=== PATIENT | female | born 1995 | race Caucasian/White ===

== ENCOUNTER 2025-05-01 13:44 | Observation (INO) | payer MEDICAID, SELFPAY ==
[2025-05-01] VITALS (9 sets, daily range): BP systolic 97–144; BP diastolic 46–94; PULSE 71–90; RESP 16–17; TEMP 36.6–36.9; O2SAT 95–100; BMI 30.7; BMI 35.7
--- OUTSIDE RECORDS SUMMARY | 2025-05-01 13:56 | XMS_ITS | Encounter Summary ---
Author Organization [facility] Address [address] [place] [place] [address] Care Team Providers Care Maintenance Parts Technician Name Role Phone Unavailable Primary Care Provider Unavailabl e Encounter Details Date Type Department Care Team (Latest Contact Info) Description 06/10/2005 Outpatient Historical [facility] Medicine- [address] [phone] Nate Bourne DO NO ADDRESS ON FILE INSECT BITE HIP/LEG-INFEC (Primary Dx) Social History Tobacco Use Types Packs/Day Years Used Date Smoking Tobacco: Never Assessed Comments Unknown Sex and Gender Information Value Date Recorded Sex Assigned at Not on file 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
--- OUTSIDE RECORDS SUMMARY | 2025-05-01 13:56 | XMS_ITS | Encounter Summary ---
Author Organization [employer] Address [address] [facility] [place] [address] Care Team Providers Care Sql Server Bi Developer Name Role Phone Unavailable Primary Care Provider Unavailabl e Encounter Details Date Type Department Care Team (Late st Contact Info) Description 04/29/2025 External Device Data [facility] ABSTRACTION Provider, Abstract NO ADDRESS ON FILE Social History Tobacco Use Types Packs/Day Years Used Date Smoking Tobacco: Some Days Cigarettes Smokeless Tobacco: Never Alcohol Use Standard Drinks/Week Comments Yes 0 (1 standard drink = 0.6 oz pur e alcohol) Feeling Safe Answer Date Recorded Are you in a relationship wi th someone who hurts you emotionally and/or physically? No 05/07/2024 Comments No Sex and Gender Information Value Date Recorded Sex Assigned at Female 02/13/2025 11:41 AM CDT Legal Sex Female 6:27 AM APPLICATIONS SUPPORT ENGINEER Gender Identity Female 02/13/2025 11:41 AM CDT Sexual Orientation Choose not to disclose 2024 11:41 AM CDT documented as of this encounter Plan of Treatment Not on file documented as of this encounter Visit Diagnoses Not on filedocumented in this encounter
--- OUTSIDE RECORDS SUMMARY | 2025-05-01 13:56 | XMS_ITS | Encounter Summary ---
Author Organization [facility] Address [address] [place] [address] Care Team Providers Care Account Solutions Analyst Name Role Phone Unavailable Primary Care Provider Unavailabl e Encounter Details Date Type Department Care Team (Latest Contact Info) Description 08/31/2005 Outpatient Historical [facility] Medicine- [address] [phone] Nate Bourne DO NO ADDRESS ON FILE URIN TRACT INFECTION NOS (Primary Dx) Social History Tobacco Use Types Packs/Day Years Used Date Smoking Tobacco: Never Assessed Comments Unknown Sex and Gender Information Value Date Recorded Sex Assigned at Not on file 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
--- OUTSIDE RECORDS SUMMARY | 2025-05-01 13:56 | XMS_ITS | Clinical Summary ---
Author Organization [facility] Address [address] [place] [address] Phone Care Team Providers Care Machine Ceramic Coater Name Role Phone Unavailable Primary Care Provider Unavailabl e Allergies Active Allergy Reactions Criticality Noted Date Comments Penicillins Itching High 04/14/2018 Medications ondansetron (ZOFRAN ODT) 4 mg Tablet, Rapid Dissolve Take 1 Tablet (4 mg) by mouth every 8 hours as needed for Nausea/Emesis . Dissolve tablet on top of tongue, then swallow with saliva. 30 Tablet 05/04/2024 Active buPROPion (WELLBUTRIN) 100 mg tablet Take 300 mg by mouth daily. 04/28/2024 Active naproxen (NAPROSYN) 500 mg tablet Take 500 mg by mouth 2 times daily as needed for Pain. 01/21/2025 Active ondansetron (ZOFRAN) 4 mg Tablet Take 4 mg by mouth every 6 hours as needed. 04/28/2024 Active SUMAtriptan (IMITREX) 50 mg tablet Take 50 mg by mouth every 2 hours as needed. 12/25/2024 Active traZODone (DESYREL) 100 mg tablet Take 100 mg by mouth daily at bedtime. 04/28/2024 Active topiramate (TOPAMAX) 50 mg tablet Take 50 mg by mouth 2 times daily. Active propranoloL (INDERAL) 80 mg tablet Take 80 mg by mouth daily. Active Active Problems Problem Noted Date Diagnosed Date Dental caries 04/16/2018 Tobacco use 11/05/2015 Dysthymic disorder Resolved Problems Problem Noted Date Diagnosed Date Resolved Date Suicidal overdose, initial encounter 11/29/2019 12/19/2019 Polyhydramnios affecting pre gnancy in third trimester 06/04/2018 07/18/2018 Antepartum anemia 03/15/2018 12/19/2019 Antepartum placenta circumvallata 01/17/2018 07/18/2018 Chlamydia infection 10/24/2017 12/19/19 Supervision of normal first , antepartum 10/19/2017 07/18/2018 Calculus of gallbladder 08/13/201705/2020 Encounters Date Type Department Care Team Description 04/29/2025 External Device Data [facility] ABSTRACTION Provider, Abstract 04/22/2025 External Device Data [facility] ABSTRACTION Provider, Abstract 04/22/2025 External Device Data [facility] ABSTRACTION Provider, Abstract 04/22/2025 External Device Data [facility] ABSTRACTION Provider, Abstract 03/04/2025 External Device Data [facility] ABSTRACTION Provider, Abstract 02/25/2025 External Device Data [facility] ABSTRACTION Provider, Abstract 02/11/2025 External Device Data [facility] ABSTRACTION Provider, Abstract 01/30/2025 External Device Data [facility] ABSTRACTION Provider, Abstract 01/29/2025 External Device Data [facility] ABSTRACTION Provider, Abstract from Last 3 Months Immunizations Immunization Administration Dates Next Due (M-M-R II/PRIORIX)(12 MO UP) MEASLES, MUMPS AND RUBELLA VIRUS VACCINE, 0.5 ML IM/SUBCUT 07/31/2001,12/04/1997 (PNEUMOVAX 23)(50 YRS UP) PN EUMOCOCCAL POLYSACCHARIDE (PPV23) 0.5 ML, IM 08/15/2017 Dt Dtp Dtap Vaccine 07/31/2001, 8,06/12/1997,04/03,01/28/1997 HIB, Unspecified Formulation 12/04/1997, 06/12/1997,04/03/1997,01/28 Hepatitis B Vaccine 06/12/1997,01/28/1997,1996 INFLUENZA VACCINE QUADRIVALE NT 3 YR UP PF IM 08/15/2017 IPV/OPV 07/31/2001, 8,04/03/1997,01/28 Family History Medical History Relation Name Comments Healthy Brother 1 Healthy Brother 2 Other Brother 2 asthma Healthy Father Healthy Maternal Grandfather Breast Cancer Maternal Grandmother Healthy Maternal Grandmother Healthy Mother Healthy Paternal Grandfather Healthy Paternal Grandmother Healthy Sister 1 Healthy Sister 2 Healthy Sister 3 Colon Cancer Neg Hx Ovarian Cancer Neg Hx Relation Name Status Comments Brother 1 Alive Brother 2 Alive Father Maternal Grandfather Alive Maternal Grandmother Alive Mother Alive Paternal Grandfather Paternal Grandmother Alive Sister 1 Alive Sister 2 Alive Sister 3 Alive Social History Tobacco Use Types Packs/Day Years [...] AM CDT Legal 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 Gender Identity Female 02/13/2025 11:41 AM CDT Sexual Orientation Choose not to disclose 2024 11:41 AM CDT Last Filed Vital Signs Vital Sign Reading Time Taken Comments Blood Pressure 114/77 01/22/2025 7:17 PM CDT Pulse 90 01/22/2025 7:17 PM CDT Temperature 37.2 C (98.9 F) 01/22/2025 7:17 PM CDT Respiratory Rate 16 01/22/2025 7:17 PM CDT Oxygen Saturation 96% 01/22/2025 7:17 PM CDT Inhaled Oxygen Concentration - - Weight 99.8 kg (220 lb) 01/22/2025 7:17 PM CDT Height 167.6 cm (5' 6 ) 01/22/2025 7:17 PM CDT Body Mass Index 35.51 01/22/2025 7:17 PM CDT Plan of Treatment Health Maintenance Due Date Last Done Comments DTAP/TDAP/TD VACCINES (6 - Tdap) 11/28/2007 07/31/2001, 02/12/1998, 06/12/1997, Additional history exists HPV VACCINES (1 - 3-dose series) 11/28/2011 CERVICAL CANCER SCREENING 07/18/2021 PAP SMEAR 07/18/2021 07/18/2018, 07/18/2018 HPV/Cotest (21-29) 07/18/2023 07/18/2018 INFLUENZA VACCINE (#1) 2025 12/19/2019, 2016 HPV/Cotest (30-65) 2026 07/18/2018 HEPATITIS B VACCINES Completed 06/12/1997, 06/12/1997, 01/28/1997, Additional history exists CHLAMYDIA SCREENING (ANNUAL) 11-24 YEARS Discontinued 04/30/2020, 11/08/2017, 10/19/2017 Procedures Procedure Name Priority Date/Time Associated Diagnosis Comments GC/CHLAMYDIA, URINE Routine 04/30/2020 6 :43 PM CDT CERV/VAG CYTO SCREEN PAP RLFX HPV Routine 07/18/2018 2:59 PM PROTECTION SPECIALIST from Last 3 Months or Most Recently Relevant to Health Maintenance Results * (ABNORMAL) GC/CHLAMYDIA, URINE (04/30/2020 6:43 PM CDT) CHLAMYDIA DNA AMPLIFICATION DETECTED(A) Not Detected 04/30/2020 8:[address] [facility] GC DNA AMPLIFICATION NOT DETECTED Not Detected 04/30/2020 8:[address] [facility] Urine URINE SPECIMEN / Unknown Collection / Unknown 04/30/2020 6:43 PM CDT 04/30/2020 6:[address] [facility] - 04/30/2020 8:27 PM CDT Results should not be used for the evaluation of suspected sexual abuse or for other medico-legal indications. The only legally accepted results are from culture. Results cannot be used to assess therapeutic success or failure since nucleic acids may persist following antimicrobial therapy. us Maurilio Rashid MD URINE ORDERABLES COM Final Result [facility] [address] [place] [address] [facility] CLIA# [id number] [address] [place] [address] * CERV/VAG CYTO SCREEN PAP RLFX HPV (07/18/2018 2:59 PM PROTECTION SPECIALIST) CLINICAL INFORMATION 07/25/2018 5:30 PM PROTECTION SPECIALIST [facility] LAST MENSTRUAL PERIOD UNKNOWN 07/25/2018 5:30 PM PROTECTION SPECIALIST [facility] PREV PAP: FIRST PAP 07/25/2018 5:30 PM PROTECTION SPECIALIST [facility] PREV BX: SEE COMMENT 07/25/2018 5:30 PM PROTECTION SPECIALIST [facility] Comment:INFORMATION NOT PROV IDED SOURCE Endocervix 07/25/2018 5:30 PM PROTECTION SPECIALIST [facility] ADEQUACY: SEE COMMENT 07/25/2018 5:30 PM PROTECTION SPECIALIST [facility] Comment: Satisfactory for evaluation. Endocervical/transformation zone component present. PAP INTERP SEE COMMENT 07/25/2018 5:30 PM PROTECTION SPECIALIST [facility] Comment:Negative for intraep ithelial lesion or malignancy. COMMENT SEE COMMENT 07/25/2018 5:30 PM PROTECTION SPECIALIST [facility] Comment: This Pap test has been evaluated with computer assisted technology. SUPERVISOR MOTOR VEHICLE ASSEMBLY: SEE COMMENT 2017 5:30 PM PROTECTION SPECIALIST [facility] Comment: MEF, CT(ASCP) CT screening location: [place] [address] [address] [address] REVIEW SUPERVISOR MOTOR VEHICLE ASSEMBLY: SEE COMMENT 07/25/2018 5:30 PM PROTECTION SPECIALIST [facility] Comment: MVB, CT(ASCP) CT screening location: [place] [address] [address] [place] [address] EXPLANATORY NOTE SEE COMMENT 018 5:30 PM PROTECTION SPECIALIST [facility] Comment: EXPLANATORY NOTE: The Pap is a screening test for cervical cancer. It is not a diagnostic test and is subject to false negative and false positive results. It is most reliable when a satisfactory sample, regularly obtained, is submitted with relevant clinical findings and history, and when the Pap result is evaluated along with historic and current clinical information. Genital SWAB OF ENDOCERVIX / Unknown Collection / Unknown 07/18/2018 2:59 PM PROTECTION SPECIALIST 07/20/2018 10:14 AM PROTECTION SPECIALIST Narrative [facility] - 07/25/2018 5:30 PM PROTECTION SPECIALIST Performing Organization Information: Site ID: Name: [facility] Address: [address] [place] [id number] Director: Rosy Lauren us Brie Miller PROSPECT MANAGER PATHOLOGY/CYTOLOGY ORDERA BLES Final Result [facility] from Last 3 Months or Most Recently Relevant to Health Maintenance Insurance [facility] [id number] AET [employer] [facility] [id number] * Guarantor: NORA MILIAN Account Type Relation to Patient Date of Phone Billing Address Personal/Family [address] [place] [address] RX INFOCROSSING Medicaid
--- OUTSIDE RECORDS SUMMARY | 2025-05-01 13:56 | XMS_ITS | Clinical Summary ---
Author Organization [facility] on Address [address] [place] [address] [place] [address] Phone Care Team Providers Care Internet Systems Administrator Name Role Phone Unavailable Primary Care Provider Unavailabl e Allergies Active Allergy Reactions Criticality Noted Date Comments Penicillins Itching High 04/14/2018 Medications ondansetron (ZOFRAN ODT) 4 mg Tablet, Rapid Dissolve Place 1 Tablet (4 mg) under tongue every 8 hours as needed for Nausea/Emes is. 10 Tablet 2 04/30/2020 Active Active Problems Problem Noted Date Diagnosed [...] , antepartum 10/19/2017 07/18/2018 Calculus of gallbladder 08/13/2017 0405/2020 Immunizations Immunization Administration Dates Next Due (M-M-R [...] History Relation Name Comments Healthy Brother 1 Other Brother 1 asthma Healthy Brother 2 Healthy Father Healthy Maternal Grandfather Breast Cancer [...] Used Date Smoking Tobacco: Some Days Cigarettes 0.5 3 Smokeless Tobacco: Never Tobacco Cessation:Ready to Q uit: Yes; Counseling Given: Yes Alcohol Use Standard Drinks/Week Comments Yes 0 (1 standard drink = 0.6 oz pur e alcohol) Comments Unknown Sex and Gender Information Value Date Recorded Sex Assigned at Not on file Legal Sex Female 3:56 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 Gender Identity Not on file Sexual Orientation Not on file Occupation Industry Job Start Date Job End Date Not on file Not on file Not on file Not on file Last Filed Vital Signs Vital Sign Reading Time Taken Comments Blood Pressure 122/78 05/26/2020 10:05 AM CDT Pulse 79 05/16/2020 2:00 PM CDT Temperature 36.8 C (98.2 F) 05/16/2020 1:24 PM CDT Respiratory Rate 32 05/16/2020 2:00 PM CDT Oxygen Saturation 98% 05/16/2020 2:00 PM CDT Inhaled Oxygen Concentration - - Weight 108.4 kg (239 lb) 05/26/2020 10:05 AM CDT Height 167.6 cm (5' 6 ) 05/04/2020 2:26 PM CDT Body Mass Index 38.58 05/04/2020 2:26 PM CDT Plan of Treatment Health Maintenance Due Date Last Done Comments DTAP/TDAP/TD VACCINES (6 - Tdap) 11/28/2007 07/31/2001, 02/12/1998, 06/12/1997, Additional history exists HPV VACCINES (1 - 3-dose series) 11/28/2011 CERVICAL CANCER SCREENING 07/18/2021 PAP SMEAR 07/18/2021 07/18/2018 HPV/Cotest (21-29) 07/18/2023 07/18/2018 INFLUENZA VACCINE (#1) 2025 12/19/2019, 2016 HPV/Cotest (30-65) 2026 07/18/2018 HEPATITIS B VACCINES Completed 06/12/1997, 01/28/1997, 1996 CHLAMYDIA SCREENING (ANNUAL) 11-24 YEARS Discontinued 04/30/2020, 11/08/2017, 10/19/2017 Procedures Procedure Name Priority Date/Time Associated Diagnosis Comments GC/CHLAMYDIA, URINE Stat 04/30/2020 6 :43 PM CDT CERV/VAG CYTO SCREEN PAP RLFX HPV Routine 07/18/2018 2:59 PM TOILET AND LAUNDRY SOAP SUPERVISOR Screening for malignant neoplasm of cervix from Last 3 Months or Most Recently Relevant to Health Maintenance Results * (ABNORMAL) GC/CHLAMYDIA, URINE (04/30/2020 6:43 PM CDT) CHLAMYDIA DNA AMPLIFICATION DETECTED(A) Not Detected 04/30/2020 8:27 PM CDT [facility] GC DNA AMPLIFICATION NOT DETECTED Not Detected 04/30/2020 8:27 PM CDT [facility] Urine URINE SPECIMEN / Unknown Collection / Unknown 04/30/2020 6:43 PM CDT 04/30/2020 6:55 PM CDT Narrative [facility] - 04/30/2020 8:27 PM CDT Results should not be used for the evaluation of suspected sexual abuse or for other medico-legal indications. The only legally accepted results are from culture. Results cannot be used to assess therapeutic success or failure since nucleic acids may persist following antimicrobial therapy. Maurilio Rashid MD URINE ORDERABLES COM Final Result [facility] [address] [place] [address] * CERV/VAG CYTO SCREEN PAP RLFX HPV (07/18/2018 2:59 PM TOILET AND LAUNDRY SOAP SUPERVISOR) CLINICAL INFORMATION 07/25/2018 5:30 PM TOILET AND LAUNDRY SOAP SUPERVISOR [facility] LAST MENSTRUAL PERIOD UNKNOWN 07/25/2018 5:30 PM TOILET AND LAUNDRY SOAP SUPERVISOR [facility] PREV PAP: FIRST PAP 07/25/2018 5:30 PM TOILET AND LAUNDRY SOAP SUPERVISOR [facility] PREV BX: SEE COMMENT 07/25/2018 5:30 PM TOILET AND LAUNDRY SOAP SUPERVISOR [facility] Comment:INFORMATION NOT PROV IDED SOURCE Endocervix 07/25/2018 5:30 PM TOILET AND LAUNDRY SOAP SUPERVISOR [facility] ADEQUACY: SEE COMMENT 07/25/2018 5:30 PM TOILET AND LAUNDRY SOAP SUPERVISOR [facility] Comment: Satisfactory for evaluation. Endocervical/transformation zone component present. PAP INTERP SEE COMMENT 07/25/2018 5:30 PM TOILET AND LAUNDRY SOAP SUPERVISOR [facility] Comment:Negative for intraep ithelial lesion or malignancy. COMMENT SEE COMMENT 07/25/2018 5:30 PM TOILET AND LAUNDRY SOAP SUPERVISOR [facility] Comment: This Pap test has been evaluated with computer assisted technology. HARP ACTION ASSEMBLER: SEE COMMENT 2017 5:30 PM TOILET AND LAUNDRY SOAP SUPERVISOR [facility] Comment: MEF, CT(ASCP) CT screening location: [place] [address] [place] [address] REVIEW HARP ACTION ASSEMBLER: SEE COMMENT 07/25/2018 5:30 PM TOILET AND LAUNDRY SOAP SUPERVISOR [facility] Comment: MVB, CT(ASCP) CT screening location: [place] [address] [address] [place] [facility] EXPLANATORY NOTE SEE COMMENT 018 5:30 PM TOILET AND LAUNDRY SOAP SUPERVISOR [facility] Comment: EXPLANATORY NOTE: The Pap is a [...] Unknown Collection / Unknown 07/18/2018 2:59 PM TOILET AND LAUNDRY SOAP SUPERVISOR 07/19/2018 8:14 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 Narrative [facility] - 07/25/2018 5:30 PM TOILET AND LAUNDRY SOAP SUPERVISOR Performing Organization Information: Site ID: Name: [facility] Address: [address] [place] [address] Director: Rosy Lauren us Brie Miller NP PATHOLOGY/CYTOLOGY ORDERA BLES Final Result [facility] from Last 3 Months or Most Recently Relevant to Health Maintenance Insurance [facility] RX INFOCROSSING Medicaid [facility] Advance Directives For more information, please contact: [phone] * Full Code (Latest Code Status on File) Date Activated Date Inactivated Comments 11/29/2019 8:14 PM 12/01/2019 4:08 PM * Full Code Date Activated Date Inactivated Comments 06/12/2018 4:01 PM 06/12/2018 6:37 PM * Full Code Date Activated Date Inactivated Comments 06/12/2018 9:09 AM 06/12/2018 4:01 PM * Full Code Date Activated Date Inactivated Comments 06/04/2018 9:02 PM 06/06/2018 2:18 PM * Full Code Date Activated Date Inactivated Comments 06/04/2018 9:55 AM 06/04/2018 8:46 PM
--- OUTSIDE RECORDS SUMMARY | 2025-05-01 13:56 | XMS_ITS | Encounter Summary ---
Author Organization [facility] Address [address] [place] [address] Care Team Providers Care Day Worker Name Role Phone Unavailable Primary Care Provider Unavailabl e Encounter Details Date Type Department Care Team (Latest Contact Info) Description 07/06/2005 Outpatient Historical [facility] Medicine- [address] [phone] Nate Bourne, DO NO ADDRESS ON FILE CELLULITIS OF BUTTOCK (Primary Dx) Social History Tobacco Use Types Packs/Day Years Used Date Smoking Tobacco: Never Assessed Comments Unknown Sex and Gender Information Value Date Recorded Sex Assigned at Not on file 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
[2025-05-01 16:16] LABS: HCG, Serum Qual Negative (Negative)
[2025-05-01] MEDS: diphenhydrAMINE 50 mg/mL SDV 1mL IVP (16:20)
[2025-05-01] MEDS: ondansetron 2 mg/ML SDV 2 mL 8 MG IVP (16:20)
--- NOTE | 2025-05-01 16:22 | ED_ITS ---
HPI - Nausea/Vomiting/Diarrhea 2 General: Chief complaint: Nausea/Vomiting/Diarrhea Stated complaint: stomach pain, dizzy v/n Time Seen by Provider: 05/01/25 15:49 History of Present Illness: 29-year-old female presents emergency ro om with nausea and vomiting. She is been having issues with this for about 12 weeks now. She has an appointment with gastroenterology for EGD and colonoscopy soon. She has some epigastric pain. She has been complaining of some dysuria. No fevers. She has now developed some diarrhea as well. Related Data Allergies Allergy/AdvReac Type Severity Reaction Status Date / Time amoxicillin Allergy ALGY-Rash Verified 05/01/25 14:00 Penicillins Allergy ALGY-Rash Verified 05/01/25 14:00 Review of Systems 2 Narrative: Constitutional symptoms: Negative except as documented in HPI. Skin symptoms: Negative except as documented in HPI. Eye symptoms: Negative except as documented in HPI. ENMT symptoms: Negative except as documented in HPI. Respiratory symptoms: Negative except as documented in HPI. Cardiovascular symptoms: Negative except as documented in HPI. Gastrointestinal symptoms: Negative except as documented in HPI. Genitourinary symptoms: Negative except as documented in HPI. Musculoskeletal symptoms: Negative except as documented in HPI. Neurologic symptoms: Negative except as documented in HPI. Psychiatric symptoms: Negative except as documented in HPI. Endocrine symptoms: Negative except as documented in HPI. Physical Exam 2 Narrative: EXAM NARRATIVE: General: Alert, no acute distress. Skin: Warm, dry. Head: Normocephalic, atraumatic. Neck: Supple, trachea midline. Eye: Extraocular movements are intact. Ears, nose, mouth and throat: Tacky oral mucosa Cardiovascular: Regular, Normal peripheral perfusion. Respiratory: Lungs are clear to auscultation, respirations are non-labored, breath sounds are equal, Symmetrical chest wall expansion. Gastrointestinal: Soft, diffuse abdominal pain but most tender in the epigastrium and in the right lower quadrant, Non distended Musculoskeletal: Normal ROM, no deformity. Neurological: Alert and oriented, No focal neurological deficit observed. Psychiatric: Cooperative, appropriate mood & affect. Course 2 Vital Signs: Vital signs: Vital Signs Temperature 98.4 F 05/01/25 13:57 Pulse Rate 84 05/01/25 18:00 Respiratory Rate 16 05/01/25 18:00 Blood Pressure 111/62 05/01/25 18:00 Pulse Oximetry 97 05/01/25 18:00 Oxygen Delivery Me thod Room Air 05/01/25 18:00 MDM - Nausea/Vomiting/Diarrhea Medical Decision Making Medical decision making: Differential diagnosis including but not limited to and based on the above HPI, review of systems and physical exam: In this patient with epigastric pain differential would include cholelithiasis or cholecystitis. Hepatitis. Diverticulitis. Constipation. UTI. colitis. small bowel obstruction. crohn's flare. pancreatitis. gastritis. peptic ulcer. also concern for acute cardiac event. Orders placed to evaluate differential diagnosis based on the above differential, HPI and physical exam Lab Review: Laboratory results were reviewed and interpreted by myself the emergency room physician. Mild leukocytosis with a white count of 15.7. No anemia. No renal failure. Liver enzymes are normal. Urinalysis likely not a clean-catch with 0-5 whites but 11-20 squames and 1+ bacteria lipase is negative. Lactate is negative. CT of the abdomen pelvis: Finding suggestive acute appendicitis with no definite evidence of gross perforation or abscess. This was reviewed and interpreted by myself the emergency room physician. I also reviewed the radiology report. I reviewed the patient's medical record. Reexamination: Patient remains quite tender in her right lower quadrant. Has not had any more vomiting since has been here. No increased work of breathing. No oxygen requirements. Consultation: I spoke with Dr. Roman who is on-call for the hospitalist service. He agrees to admission. N.p.o. after midnight. IV Flagyl and Cipro as the patient is allergic to Zosyn. Also starting maintenance IV fluids. Assessment and plan: Acute appendicitis Dehydration ?IV Cipro and Flagyl. 2 L normal saline bolus. IV Zofran, Compazine and Benadryl. -I discussed the patient with the hospitalist on-call who is admitting the patient. - Discussed findings and plan with patient. Answered any questions. - All laboratory values were reviewed and interpreted personally by myself, the ER physician - All imaging was reviewed and interpreted personally by myself, the ER physician. - Evaluation and treatment of this problem were appropriate in the emergency setting Lab Data 05/01/25 15:57 05/01/25 15:57 Radiology Impressions Abdomen/Pelvis CT 05/01/25 16:44 IMPRESSION: Findings suggestive of mild appendicitis with no definite evidence gross perforation or abscess. ADDENDUM: 05/01/251913 THIS REPORT CONTAINS FINDINGS THAT MAY BE CRITICAL TO PATIENT CARE. The findings were verbally communicated via telephone conference with ANTHONY JONES at 7:12 PM CDT on 05/01/2025. The findings were acknowledged and understood. Laboratory Results WBC 15.74 10^3/uL (3.29-11.43) H 05/01/25 15:57 RBC 4.60 10^6/uL (3.85-5.65) 05/01/25 15:57 Hgb 14.90 g/dL (11.27-16.99) 05/01/25 15:57 Hct 43.0 % (36-47) 05/01/25 15:57 MCV 93.5 fl (85-98) 05/01/25 15:57 MCH 32.4 pg (27-33) 05/01/25 15:57 MCHC 34.7 g/dL (30-55) 05/01/25 15:57 RDW 12.9 % (12.1-15.1) 05/01/25 15:57 Plt Count 458 10^3/cmm (157-399) H 05/01/25 15:57 MPV 10.3 fL (7.4-10.4) 05/01/25 15:57 Neut % (Auto) 81.4 % 05/01/25 15:57 Lymph % (Auto) 14.4 % 05/01/25 15:57 Glenn % (Auto) 3.4 % 05/01/25 15:57 Eos % (Auto) 0.2 % 05/01/25 15:57 Baso % (Auto) 0.2 % 05/01/25 15:57 Neut # (Auto) 12.81 10^3/uL (1.8-7.7) H 05/01/25 15:57 Lymph # (Auto) 2.3 10^3/uL (0.8-4.8) 05/01/25 15:57 Glenn # (Auto) 0.5 10^3/uL (0.2-0.9) 05/01/25 15:57 Eos # (Auto) 0.0 10^3/uL (0.0-0.8) 05/01/25 15:57 Baso # (Auto) 0.0 10^3/uL (0.0-0.1) 05/01/25 15:57 Nucleated RBC % (auto) 0 % 05/01/25 15:57 Nucleated RBCs # 0.0 /100WBC 05/01/25 15:57 Sodium 141 mmol/L (136-145) 05/01/25 15:57 Potassium 3.9 mmol/L (3.5-5.1) 05/01/25 15:57 Chloride 105 mmol/L (98-107) 05/01/25 15:57 Carbon Dioxide 24 mmol/L (22-29) 05/01/25 15:57 Anion Gap 15.9 (5-19) 05/01/25 15:57 BUN 5 mg/dL (6-20) L 05/01/25 15:57 Creatinine 0.6 mg/dL (0.5-0.9) 05/01/25 15:57 GFR Calculation 119.0 mL/min (90-130) 05/01/25 15:57 Glucose 101 mg/dL (65-115) 05/01/25 15:57 Calculated Osmolality 289 mOsm/kg (285-295) 05/01/25 15:57 Lactic Acid 1.6 mmol/L (0.5-2.2) 05/01/25 15:57 Calcium 9.1 mg/dL (8.5-10.5) 05/01/25 15:57 Total Bilirubin 0.2 mg/dL (0.15-1.2) 05/01/25 15:57 AST 16 U/L (0-32) 05/01/25 15:57 ALT 11 U/L (0-33) 05/01/25 15:57 Alkaline Phosphatase 86 U/L (35-105) 05/01/25 15:57 Total Protein 7.6 g/dL (6.6-8.7) 05/01/25 15:57 Albumin 4.5 g/dL (3.5-5.2) 05/01/25 15:57 Globulin 3.1 g/dL (1.3-4.6) 05/01/25 15:57 Lipase 18 U/L (13-60) 05/01/25 15:57 HCG, Qual Negative (Negative) 05/01/25 15:57 Urine Color Yellow (Yellow) 05/01/25 17:20 Urine Appearance Cloudy (CLEAR) A 05/01/25 17:20 Urine pH 6.0 (5-7) 05/01/25 17:20 Ur Specific [place] 1.022 (1.005-1.030) 05/01/25 17:20 Urine Protein Trace (Negative) A 05/01/25 17:20 Urine Glucose (UA) Negative (Normal) 05/01/25 17:20 Urine Ketones Trace (Negative) 05/01/25 17:20 Urine Blood Negative (Negative) 05/01/25 17:20 Urine Nitrate Negative (Negative) 05/01/25 17:20 Urine Bilirubin Negative (Negative) 05/01/25 17:20 Urine Urobilinogen 1.0 mg/dL (Negative) 05/01/25 17:20 Ur Leukocyte Esterase 1+ (Negative) A 05/01/25 17:20 Urine RBC 3-5 /hpf (0-2) 05/01/25 17:20 Urine WBC 0-5 /hpf (0-5) 05/01/25 17:20 Ur Squamous Epith Cells 11-20 /hpf (0-5) H 05/01/25 17:20 Amorphous Sediment Not Reportable 05/01/25 17:20 Urine Bacteria 1+ /hpf (NONE) H 05/01/25 17:20 Hyaline Casts 2.05 /lpf 05/01/25 17:20 Urine Opiates Screen Negative ng/mL (Negative) 05/01/25 17:20 Ur Barbiturates Screen Negative ng/mL (Negative) 05/01/25 17:20 Ur Phencyclidine Scrn Negative ng/mL (Negative) 05/01/25 17:20 Ur Amphetamines Screen Negative ng/mL (Negative) 05/01/25 17:20 U Benzodiazepines Scrn Negative ng/mL (Negative) 05/01/25 17:20 Urine Cocaine Screen Negative ng/mL (Negative) 05/01/25 17:20 U Marijuana (THC) Screen Positive ng/mL (Negative) H 05/01/25 17:20 All radiology interpretation(s) finalized by discharge Discharge Plan Discharge Patient Disposition: Admitted As Inpatient Clinical Impression: Acute appendicitis Condition: Stable Coding Level of Care Code ED Social Science Professor for Anurag Zimmer
[2025-05-01 16:23] LABS: Hematocrit 43.0 % (36-47); Hemoglobin 14.90 g/dL (11.27-16.99); Lactic Sepsis W/Reflex 1.6 mmol/L (0.5-2.2); Mean Corpuscular HGB Conc 34.7 g/dL (30-55); Mean Corpuscular Hemoglobin 32.4 pg (27-33); Mean Corpuscular Volume 93.5 fl (85-98); Nucleated Red Blood Cells % 0 %; Platelet Count 458 10^3/cmm (157-399); Red Blood Count 4.60 10^6/uL (3.85-5.65); White Blood Count 15.74 10^3/uL (3.29-11.43)
[2025-05-01 16:24] LABS: Alanine Aminotransferase 11 U/L (0-33); Albumin Level 4.5 g/dL (3.5-5.2); Alkaline Phosphatase 86 U/L (35-105); Anion Gap 15.9 (5-19); Aspartate Amino Transferase 16 U/L (0-32); Blood Urea Nitrogen 5 mg/dL (6-20); Calcium 9.1 mg/dL (8.5-10.5); Carbon Dioxide 24 mmol/L (22-29); Chloride 105 mmol/L (98-107); Creatinine Clr Calc Pharmacy 154.3765; Globulin 3.1 g/dL (1.3-4.6); Glucose 101 mg/dL (65-115); Lipase 18 U/L (13-60); Osmolality Calculated 289 mOsm/kg (285-295); Potassium 3.9 mmol/L (3.5-5.1); Sodium 141 mmol/L (136-145); Total Protein 7.6 g/dL (6.6-8.7)
--- NOTE | 2025-05-01 16:44 | CTR_ITS ---
PROCEDURE INFORMATION: Exam: CT Abdomen And Pelvis With Contrast Exam date and time: 05/01/2025 6:26 PM Age: 29 years old Clinical indication: Abdominal pain; Generalized; Prior surgery; Surgery date: 6+ months; Surgery type: Gb TECHNIQUE: Imaging protocol: Computed tomography of the abdomen and pelvis with contrast. Radiation optimization: All CT scans at this facility use at least one of these dose optimization techniques: automated exposure control; mA and/or kV adjustment per patient size (includes targeted exams where dose is matched to clinical indication); or iterative reconstruction. Contrast material: OMNI 350; Contrast volume: 100 ml; Contrast route: INTRAVENOUS (IV); COMPARISON: No relevant prior studies available. RADIATION DOSE METRICS: Total DLP (mGy-cm): 943.18 FINDINGS: Liver: No discrete liver lesions are apparent. Smooth hepatic contour. Gallbladder and biliary ducts: Prior cholecystectomy. Pancreas: No evidence of pancreatitis. No ductal dilation. Spleen: Spleen is within normal limits. Adrenal glands: Adrenal glands are within expected limits. Kidneys and ureters: No renal or ureteral calculi are identified. No hydronephrosis. Stomach and bowel: There are few colonic diverticula but no diverticulitis. No small bowel obstruction. Appendix: The appendix is mildly inflamed and thick walled with periappendiceal inflammatory stranding. Diameter measures up to 9 mm. No evidence of perforation or abscess. Intraperitoneal space: Some mild mesenteric stranding. No intraperitoneal free air. No discrete fluid collection. Vasculature: No abdominal aortic aneurysm. Lymph nodes: No pathologically enlarged lymph nodes by CT size criteria. Urinary bladder: Unremarkable as visualized. Reproductive: Unremarkable as visualized. Bones/joints: No acute osseous abnormalities. Soft tissues: Unremarkable. CT/CT abdomen pelvis w con* [id number] IMPRESSION: Findings suggestive of mild appendicitis with no definite evidence gross perforation or abscess.
[2025-05-01 18:27] LABS: Glucose Urine UA Negative (Normal); Nitrate Urine Negative (Negative); Specific Gravity, Urine 1.022 (1.005-1.030)
[2025-05-01] MEDS: iohexol 350 mg/mL 500 mL Btl (per mL) IV (18:30)
[2025-05-01 18:35] LABS: PCP Screen Urine Negative (Negative)
[2025-05-01] MEDS: metroNIDAZOLE IV 500 MG/100 ML PREMIX 100 MG IV (20:11)
--- OUTSIDE RECORDS SUMMARY | 2025-05-01 21:30 | XMS_ITS | Encounter Summary ---
Author Organization [facility] Address [address] [place] [address] Care Team Providers Care Bobbin Marker Name Role Phone Unavailable Primary Care Provider Unavailabl e Encounter Details Date Type Department Care Team (Latest Contact Info) Description 06/10/2005 Outpatient Historical [facility] Medicine- [address] [phone] Nate Bourne DO NO ADDRESS ON FILE INSECT BITE HIP/LEG-INFEC (Primary Dx) Social History Tobacco Use Types Packs/Day Years Used Date Smoking Tobacco: Never Assessed Comments Unknown Sex and Gender Information Value Date Recorded Sex Assigned at Not on file Legal 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
--- OUTSIDE RECORDS SUMMARY | 2025-05-01 21:30 | XMS_ITS | Encounter Summary ---
Author Organization [facility] Address [address] [place] [address] Care Team Providers Care Senior Mobile Solutions Architect Name Role Phone Unavailable Primary Care Provider Unavailabl e Encounter Details Date Type Department Care Team (Latest Contact Info) Description 07/06/2005 Outpatient Historical [facility] Medicine- [address] [phone] Nate Bourne, DO NO ADDRESS ON FILE CELLULITIS OF BUTTOCK (Primary Dx) Social History Tobacco Use Types Packs/Day Years Used Date Smoking Tobacco: Never Assessed Comments Unknown Sex and Gender Information Value Date Recorded Sex Assigned at Not on file 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
--- OUTSIDE RECORDS SUMMARY | 2025-05-01 21:30 | XMS_ITS | Encounter Summary ---
Author Organization [employer] Address [address] [facility] [address] Care Team Providers Care Anthropology And Archeology Instructor Name Role Phone Unavailable Primary Care Provider [...] AM CDT Legal Sex Female 6:27 AM TRANSPORTATION TECHNICIAN Gender Identity Female 02/13/2025 11:41 AM CDT Sexual Orientation Choose not to disclose 2024 11:41 AM CDT documented as of this encounter Plan of Treatment Not on file documented as of this encounter Visit Diagnoses Not on filedocumented in this encounter
--- OUTSIDE RECORDS SUMMARY | 2025-05-01 21:30 | XMS_ITS | Clinical Summary ---
Author Organization [facility] Address [address] [place] [address] Phone Care Team Providers Care Youth Development Specialist Name Role Phone Unavailable Primary Care Provider [...] AM CDT Legal Sex Female 6:27 AM SCIENCE INTERPRETER Gender Identity Female 02/13/2025 11:41 AM CDT [...] PAP RLFX HPV Routine 07/18/2018 2:59 PM SCIENCE INTERPRETER from Last 3 Months or Most Recently Relevant to Health Maintenance Results * (ABNORMAL) GC/CHLAMYDIA, URINE (04/30/2020 6:43 PM CDT) CHLAMYDIA DNA AMPLIFICATION DETECTED(A) Not Detected 04/30/2020 8:27 PM CDT [facility] GC DNA AMPLIFICATION NOT DETECTED Not Detected 04/30/2020 8:27 PM CDT [facility] Urine URINE SPECIMEN / Unknown Collection / Unknown 04/30/2020 6:43 PM CDT 04/30/2020 6:55 PM CDT Narrative [facility] - 04/30/2020 8:27 PM CDT Results should not be used for the evaluation of suspected sexual abuse or for other medico-legal indications. The only legally accepted results are from culture. Results cannot be used to assess therapeutic success or failure since nucleic acids may persist following antimicrobial therapy. us Maurilio Rashid MD URINE ORDERABLES COM Final Result [facility] [address] [place] [address] [facility] CLIA# [id number] [address] [place] [address] * CERV/VAG CYTO SCREEN PAP RLFX HPV (07/18/2018 2:59 PM SCIENCE INTERPRETER) CLINICAL INFORMATION 07/25/2018 5:30 PM SCIENCE INTERPRETER [facility] LAST MENSTRUAL PERIOD UNKNOWN 07/25/2018 5:30 PM SCIENCE INTERPRETER [facility] PREV PAP: FIRST PAP 07/25/2018 5:30 PM SCIENCE INTERPRETER [facility] PREV BX: SEE COMMENT 07/25/2018 5:30 PM SCIENCE INTERPRETER [facility] Comment:INFORMATION NOT PROV IDED SOURCE Endocervix 07/25/2018 5:30 PM SCIENCE INTERPRETER [facility] ADEQUACY: SEE COMMENT 07/25/2018 5:30 PM SCIENCE INTERPRETER [facility] Comment: Satisfactory for evaluation. Endocervical/transformation zone component present. PAP INTERP SEE COMMENT 07/25/2018 5:30 PM SCIENCE INTERPRETER [facility] Comment:Negative for intraep ithelial lesion or malignancy. COMMENT SEE COMMENT 07/25/2018 5:30 PM SCIENCE INTERPRETER [facility] Comment: This Pap test has been evaluated with computer assisted technology. BAR POINTER: SEE COMMENT 2017 5:30 PM SCIENCE INTERPRETER [facility] Comment: MEF, CT(ASCP) CT screening location: [place] [address] [address] REVIEW BAR POINTER: SEE COMMENT 07/25/2018 5:30 PM SCIENCE INTERPRETER [facility] Comment: MVB, CT(ASCP) CT screening location: [place] [address] [address] EXPLANATORY NOTE SEE COMMENT 018 5:30 PM SCIENCE INTERPRETER [facility] ST Comment: EXPLANATORY NOTE: The [...] Unknown Collection / Unknown 07/18/2018 2:59 PM SCIENCE INTERPRETER 07/20/2018 10:14 AM SCIENCE INTERPRETER Narrative [facility] - 07/25/2018 5:30 PM SCIENCE INTERPRETER Performing Organization Information: Site ID: Name: [facility] Address: [address] [place] [id number] Director: Rosy Lauren us Brie Miller SALES ACCOUNT ASSOCIATE PATHOLOGY/CYTOLOGY ORDERA BLES Final Result [facility] from Last 3 Months or Most Recently Relevant to Health Maintenance Insurance [facility] [id number] [address] [employer] [facility] [id number] * Guarantor: NORA MILIAN Account Type Relation to Patient Date of Phone Billing Address Personal/Family [address] [place] [address] RX INFOCROSSING Medicaid
--- OUTSIDE RECORDS SUMMARY | 2025-05-01 21:30 | XMS_ITS | Clinical Summary ---
Author Organization [facility] on Address [address] [place] [address] [place] [address] Phone Care Team Providers Care Fish Net Maker Name Role Phone Unavailable Primary Care Provider [...] on file Legal Sex Female 3:56 AM INFORMATION TECHNOLOGY SECURITY MANAGER Gender Identity Not on file Sexual Orientation [...] PAP RLFX HPV Routine 07/18/2018 2:59 PM INFORMATION TECHNOLOGY SECURITY MANAGER Screening for malignant neoplasm of cervix from Last 3 Months or Most Recently Relevant to Health Maintenance Results * (ABNORMAL) GC/CHLAMYDIA, URINE (04/30/2020 6:43 PM CDT) CHLAMYDIA DNA AMPLIFICATION DETECTED(A) Not Detected 04/30/2020 8:27 PM CDT [facility] GC DNA AMPLIFICATION NOT DETECTED Not Detected 04/30/2020 8:27 PM CDT [facility] Urine URINE SPECIMEN / Unknown Collection / Unknown 04/30/2020 6:43 PM CDT 04/30/2020 6:55 PM CDT Narrative [facility] - 04/30/2020 8:27 PM CDT Results should not be used for the evaluation of suspected sexual abuse or for other medico-legal indications. The only legally accepted results are from culture. Results cannot be used to assess therapeutic success or failure since nucleic acids may persist following antimicrobial therapy. Maurilio Rashid MD URINE ORDERABLES COM Final Result [facility] [address] [place] [address] * CERV/VAG CYTO SCREEN PAP RLFX HPV (07/18/2018 2:59 PM INFORMATION TECHNOLOGY SECURITY MANAGER) CLINICAL INFORMATION 07/25/2018 5:30 PM INFORMATION TECHNOLOGY SECURITY MANAGER [facility] LAST MENSTRUAL PERIOD UNKNOWN 07/25/2018 5:30 PM INFORMATION TECHNOLOGY SECURITY MANAGER [facility] PREV PAP: FIRST PAP 07/25/2018 5:30 PM INFORMATION TECHNOLOGY SECURITY MANAGER [facility] PREV BX: SEE COMMENT 07/25/2018 5:30 PM INFORMATION TECHNOLOGY SECURITY MANAGER [facility] Comment:INFORMATION NOT PROV IDED SOURCE Endocervix 07/25/2018 5:30 PM INFORMATION TECHNOLOGY SECURITY MANAGER [facility] ADEQUACY: SEE COMMENT 07/25/2018 5:30 PM INFORMATION TECHNOLOGY SECURITY MANAGER [facility] Comment: Satisfactory for evaluation. Endocervical/transformation zone component present. PAP INTERP SEE COMMENT 07/25/2018 5:30 PM INFORMATION TECHNOLOGY SECURITY MANAGER [facility] Comment:Negative for intraep ithelial lesion or malignancy. COMMENT SEE COMMENT 07/25/2018 5:30 PM INFORMATION TECHNOLOGY SECURITY MANAGER [facility] Comment: This Pap test has been evaluated with computer assisted technology. HYDROGEN PLANT OPERATOR: SEE COMMENT 2017 5:30 PM INFORMATION TECHNOLOGY SECURITY MANAGER [facility] Comment: MEF, CT(ASCP) CT screening location: [place] [address] [place] [address] REVIEW HYDROGEN PLANT OPERATOR: SEE COMMENT 07/25/2018 5:30 PM INFORMATION TECHNOLOGY SECURITY MANAGER [facility] Comment: MVB, CT(ASCP) CT screening location: [place] [address] [address] [place] [address] [facility] EXPLANATORY NOTE SEE COMMENT 018 5:30 PM INFORMATION TECHNOLOGY SECURITY MANAGER [facility] Comment: EXPLANATORY NOTE: The [...] Unknown Collection / Unknown 07/18/2018 2:59 PM INFORMATION TECHNOLOGY SECURITY MANAGER 07/19/2018 8:14 AM INFORMATION TECHNOLOGY SECURITY MANAGER Narrative [facility] - 07/25/2018 5:30 PM INFORMATION TECHNOLOGY SECURITY MANAGER Performing Organization Information: Site ID: Name: [id number] Address: [address] [place] [address] Director: Rosy Lauren us Brie Miller NP PATHOLOGY/CYTOLOGY ORDERA BLES Final Result [facility] from Last 3 Months or Most Recently Relevant to Health Maintenance Insurance [facility] RX INFOCROSSING Medicaid [facility] Advance Directives For more information, please contact: [phone] * Full Code (Latest Code Status on [...]
--- OUTSIDE RECORDS SUMMARY | 2025-05-01 21:30 | XMS_ITS | Encounter Summary ---
Author Organization [facility] Address [address] [place] [address] Care Team Providers Care Victorian Literature Professor Name Role Phone Unavailable Primary Care Provider Unavailabl e Encounter Details Date Type Department Care Team (Latest Contact Info) Description 08/31/[address] [facility] Medicine- [address] [phone] Nate Bourne DO NO ADDRESS ON FILE URIN TRACT INFECTION NOS (Primary Dx) Social History Tobacco Use Types Packs/Day Years Used Date Smoking Tobacco: Never Assessed Comments Unknown Sex and Gender Information Value Date Recorded Sex Assigned at Not on file Legal Sex Female 3:56 AM PIE FILLING MIXER Gender Identity Not on file Sexual Orientation Not on file documented as of this encounter Plan of Treatment Not on file documented as of this encounter Visit Diagnoses Diagnosis Urinary tract infection, site not specified- Primary documented in this encounter
[2025-05-01] MEDS: morphine 4 mg/mL SDV 1 mL IVP (22:08)
[2025-05-01] MEDS: ondansetron 2 mg/ML SDV 2 mL 4 MG IVP (22:09)
[2025-05-02] VITALS (30 sets, daily range): BP systolic 82–134; BP diastolic 50–85; PULSE 57–99; RESP 12–22; TEMP 36.4–37.2; O2SAT 90–99
[2025-05-02] MEDS: metroNIDAZOLE IV 500 MG/100 ML PREMIX 100 MG IV ×3 (00:45→19:40)
--- NOTE | 2025-05-02 06:12 | PC.NURSE ---
Nicotine patch removed and discarded from patient right upper arm per Dr. Roman's order.
[2025-05-02] MEDS: ondansetron 2 mg/ML SDV 2 mL 4 MG IVP (06:30)
--- OUTSIDE RECORDS SUMMARY | 2025-05-02 06:50 | XMS_ITS | Encounter Summary ---
Author Organization [facility] Address [address] [place] [address] Care Team Providers Care Director Operations Name Role Phone Unavailable Primary Care Provider Unavailabl e Encounter Details Date Type Department Care Team (Latest Contact Info) Description 07/06/[address] [facility] Medicine- [address] [phone] Nate Bourne, DO NO ADDRESS ON FILE CELLULITIS OF BUTTOCK (Primary Dx) Social History Tobacco Use Types Packs/Day Years Used Date Smoking Tobacco: Never Assessed Comments Unknown Sex and Gender Information Value Date Recorded Sex Assigned at Not on file Legal Sex Female 3:56 AM RADIOLOGIC TECHNICIAN Gender Identity Not on file Sexual Orientation Not on file documented as of this encounter Plan of Treatment Not on file documented as of this encounter Visit Diagnoses Diagnosis Cellulitis and abscess of buttock- Primary documented in this encounter
--- OUTSIDE RECORDS SUMMARY | 2025-05-02 06:50 | XMS_ITS | Encounter Summary ---
Author Organization [facility] Address [address] [place] [address] Care Team Providers Care Corporate Administrative Assistant Name Role Phone Unavailable Primary Care Provider Unavailabl e Encounter Details Date Type Department Care Team (Latest Contact Info) Description 06/10/2005 Outpatient Historical [facility]- [address] [phone] Nate Bourne DO NO ADDRESS ON FILE INSECT BITE HIP/LEG-INFEC (Primary Dx) Social History Tobacco Use Types Packs/Day Years Used Date Smoking Tobacco: Never Assessed Comments Unknown Sex and Gender Information Value Date Recorded Sex Assigned at Not on file Legal Sex Female 3:56 AM SENIOR PRINCIPAL 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
--- OUTSIDE RECORDS SUMMARY | 2025-05-02 06:50 | XMS_ITS | Clinical Summary ---
Author Organization [facility] Address [address] [place] [phone] Phone Care Team Providers Care Hydro Mechanic Name Role Phone Unavailable Primary Care Provider [...] AM CDT Legal Sex Female 6:27 AM INSURANCE FOLLOW UP REPRESENTATIVE Gender Identity Female 02/13/2025 11:41 AM CDT [...] PAP RLFX HPV Routine 07/18/2018 2:59 PM INSURANCE FOLLOW UP REPRESENTATIVE from Last 3 Months or Most Recently Relevant to Health Maintenance Results * (ABNORMAL) GC/CHLAMYDIA, URINE (04/30/2020 6:43 PM CDT) [facility] CHLAMYDIA DNA AMPLIFICATION DETECTED(A) Not Detected 04/30/2020 8:27 PM CDT [facility] GC DNA AMPLIFICATION NOT DETECTED Not Detected 04/30/2020 8:27 PM CDT [facility] Urine URINE SPECIMEN / Unknown Collection / Unknown 04/30/2020 6:43 PM CDT 04/30/2020 6:55 PM CDT Narrative [facility] - 04/30/2020 8:27 PM CDT Results should not be used for the evaluation of suspected sexual abuse or for other medico-legal indications. The only legally accepted results are from culture. Results cannot be used to assess therapeutic success or failure since nucleic acids may persist following antimicrobial therapy. us Maurilio Rashid MD URINE ORDERABLES COM Final Result [facility] [address] [place] [address] [facility] CLIA# [id number] [address] [place] [address] * CERV/VAG CYTO SCREEN PAP RLFX HPV (07/18/2018 2:59 PM INSURANCE FOLLOW UP REPRESENTATIVE) CLINICAL INFORMATION 07/25/2018 5:30 PM INSURANCE FOLLOW UP REPRESENTATIVE [facility] LAST MENSTRUAL PERIOD UNKNOWN 07/25/2018 5:30 PM INSURANCE FOLLOW UP REPRESENTATIVE [facility] PREV PAP: FIRST PAP 07/25/2018 5:30 PM INSURANCE FOLLOW UP REPRESENTATIVE [facility] PREV BX: SEE COMMENT 07/25/2018 5:30 PM INSURANCE FOLLOW UP REPRESENTATIVE [facility] Comment:INFORMATION NOT PROV IDED SOURCE Endocervix 07/25/2018 5:30 PM INSURANCE FOLLOW UP REPRESENTATIVE [facility] ADEQUACY: SEE COMMENT 07/25/2018 5:30 PM INSURANCE FOLLOW UP REPRESENTATIVE [facility] Comment: Satisfactory for evaluation. Endocervical/transformation zone component present. PAP INTERP SEE COMMENT 07/25/2018 5:30 PM INSURANCE FOLLOW UP REPRESENTATIVE [facility] Comment:Negative for intraep ithelial lesion or malignancy. COMMENT SEE COMMENT 07/25/2018 5:30 PM INSURANCE FOLLOW UP REPRESENTATIVE [facility] Comment: This Pap test has been evaluated with computer assisted technology. BAKER TEST: SEE COMMENT 2017 5:30 PM INSURANCE FOLLOW UP REPRESENTATIVE [facility] Comment: MEF, CT(ASCP) CT screening location: [place] [address] [address] [place] [address] REVIEW BAKER TEST: SEE COMMENT 07/25/2018 5:30 PM INSURANCE FOLLOW UP REPRESENTATIVE [facility] Comment: MVB, CT(ASCP) CT screening location: [place] [address] [address] [place] [address] EXPLANATORY NOTE SEE COMMENT 018 5:30 PM INSURANCE FOLLOW UP REPRESENTATIVE [facility] Comment: EXPLANATORY NOTE: The [...] Unknown Collection / Unknown 07/18/2018 2:59 PM INSURANCE FOLLOW UP REPRESENTATIVE 07/20/2018 10:14 AM INSURANCE FOLLOW UP REPRESENTATIVE [facility] - 07/25/2018 5:30 PM INSURANCE FOLLOW UP REPRESENTATIVE Performing Organization Information: Site ID: Name: [facility] Address: [facility] [address] [place] [address] Director: Rosy Lauren us Brie Miller NP PATHOLOGY/CYTOLOGY ORDERA BLES Final Result [facility] from Last 3 Months or Most Recently Relevant to Health Maintenance Insurance [facility] [id number] [employer]ETNA [facility] [id number] Member Subscriber Plan / Payer (Ef fective 2024-Present) Name:Nora Whitaker Lexis Relation to Subscriber:Self Name:Christian Whitakerayla Lexis Payer ID:[id number] (NAIC) Group ID:[id number] Type:HMO Address: [address] [place] [id number] * Guarantor: NORA MILIAN Account Type Relation to Patient Date of Phone Billing Address Personal/Family [address] [place] [address] RX INFOCROSSING Medicaid
--- OUTSIDE RECORDS SUMMARY | 2025-05-02 06:50 | XMS_ITS | Encounter Summary ---
Author Organization [facility] Address [address] [place] [address] Care Team Providers Care Chief Controller Station Name Role Phone Unavailable Primary Care Provider Unavailabl e Encounter Details Date Type Department Care Team (Latest Contact Info) Description 08/31/2005 Outpatient Historical [facility]- [address] [phone] Nate Bourne DO NO ADDRESS ON FILE URIN TRACT INFECTION NOS (Primary Dx) Social History Tobacco Use Types Packs/Day Years Used Date Smoking Tobacco: Never Assessed Comments Unknown Sex and Gender Information Value Date Recorded Sex Assigned at Not on file Legal Sex Female 3:56 AM ADMIN ASSISTANT Gender Identity Not on file Sexual Orientation Not on file documented as of this encounter Plan of Treatment Not on file documented as of this encounter Visit Diagnoses Diagnosis Urinary tract infection, site not specified- Primary documented in this encounter
--- OUTSIDE RECORDS SUMMARY | 2025-05-02 06:51 | XMS_ITS | Encounter Summary ---
Author Organization [facility] Address [address] [place] [address] Care Team Providers Care Weathercaster Name Role Phone Unavailable Primary Care Provider [...] AM CDT Legal Sex Female 6:27 AM SUPERVISOR CELL MAINTENANCE Gender Identity Female 02/13/2025 11:41 AM CDT Sexual Orientation Choose not to disclose 2024 11:41 AM CDT documented as of this encounter Plan of Treatment Not on file documented as of this encounter Visit Diagnoses Not on filedocumented in this encounter
--- OUTSIDE RECORDS SUMMARY | 2025-05-02 06:51 | XMS_ITS | Clinical Summary ---
Author Organization [facility] Address [address] [place] [address] [place] [address] Phone Care Team Providers Care Vest Maker Name Role Phone Unavailable Primary Care [...] on file Legal Sex Female 3:56 AM TREASURY REPRESENTATIVE Gender Identity Not on file Sexual Orientation [...] PAP RLFX HPV Routine 07/18/2018 2:59 PM TREASURY REPRESENTATIVE Screening for malignant neoplasm of cervix from Last 3 Months or Most Recently Relevant to Health Maintenance Results * (ABNORMAL) GC/CHLAMYDIA, URINE (04/30/2020 6:43 PM CDT) CHLAMYDIA DNA AMPLIFICATION DETECTED(A) Not Detected 04/30/2020 8:27 PM CDT [facility] GC DNA AMPLIFICATION NOT DETECTED Not Detected 04/30/2020 8:27 PM CDT [facility] Urine URINE SPECIMEN / Unknown Collection / Unknown 04/30/2020 6:43 PM CDT 04/30/2020 6:55 PM CDT Narrative [facility] - 04/30/2020 8:27 PM CDT Results should not be used for the evaluation of suspected sexual abuse or for other medico-legal indications. The only legally accepted results are from culture. Results cannot be used to assess therapeutic success or failure since nucleic acids may persist following antimicrobial therapy. Maurilio Rashid MD URINE ORDERABLES COM Final Result [facility] [address] [place] [address] * CERV/VAG CYTO SCREEN PAP RLFX HPV (07/18/2018 2:59 PM TREASURY REPRESENTATIVE) CLINICAL INFORMATION 07/25/2018 5:30 PM TREASURY REPRESENTATIVE [facility] LAST MENSTRUAL PERIOD UNKNOWN 07/25/2018 5:30 PM TREASURY REPRESENTATIVE [facility] PREV PAP: FIRST PAP 07/25/2018 5:30 PM TREASURY REPRESENTATIVE [facility] PREV BX: SEE COMMENT 07/25/2018 5:30 PM TREASURY REPRESENTATIVE [facility] Comment:INFORMATION NOT PROV IDED SOURCE End[facility]ix 07/25/2018 5:30 PM TREASURY REPRESENTATIVE [facility] ADEQUACY: SEE COMMENT 07/25/2018 5:30 PM TREASURY REPRESENTATIVE [facility] Comment: Satisfactory for evaluation. Endocervical/transformation zone component present. PAP INTERP SEE COMMENT 07/25/2018 5:30 PM TREASURY REPRESENTATIVE [facility] Comment:Negative for intraep ithelial lesion or malignancy. COMMENT SEE COMMENT 07/25/2018 5:30 PM TREASURY REPRESENTATIVE [facility] Comment: This Pap test has been evaluated with computer assisted technology. SCHOOL BUS OPERATOR: SEE COMMENT 2017 5:30 PM TREASURY REPRESENTATIVE [facility] Comment: MEF, CT(ASCP) CT screening location: [place] [address] [place] [address] REVIEW SCHOOL BUS OPERATOR: SEE COMMENT 07/25/2018 5:30 PM TREASURY REPRESENTATIVE [facility] Comment: MVB, CT(ASCP) CT screening location: [place] [address] [address] [place] [facility] EXPLANATORY NOTE SEE COMMENT 018 5:30 PM TREASURY REPRESENTATIVE [facility] Comment: EXPLANATORY NOTE: The [...] Unknown Collection / Unknown 07/18/2018 2:59 PM TREASURY REPRESENTATIVE 07/19/2018 8:14 AM TREASURY REPRESENTATIVE Narrative [facility] - 07/25/2018 5:30 PM TREASURY REPRESENTATIVE Performing Organization Information: Site ID: Name: [facility] Address: [address] [place] [address] Director: Rosy Lauren us Brie Miller NP PATHOLOGY/CYTOLOGY ORDERA BLES Final Result [facility] from Last 3 Months or Most Recently Relevant to Health Maintenance Insurance [facility] RX INFO[employer]OSS[employer] Medicaid [facility] Advance Directives For more information, please contact: [phone] * Full Code (Latest Code Status on [...]
--- NOTE | 2025-05-02 08:53 | P.HP_ITS ---
Providers/Chief Complaint 2 Admitting Physician: Brain Sky MD Chief Complaint: stomach pain, dizzy v/n History of Present Illness Nora Whitaker is a 29 year old female who presented with acute uncomplicated appendicitis. Reports about a day of right lower quadrant pain. Nausea. Medications/Allergies Allergies Allergy/AdvReac Type Severity Reaction Status Date / Time amoxicillin Allergy ALGY-Rash Verified 05/01/25 14:00 Penicillins Allergy ALGY-Rash Verified 05/01/25 14:00 Vitals/I&O/Wt Last Vital Signs Temp 98.1 F 05/02/25 07:25 Pulse 73 05/02/25 07:25 Resp 16 05/02/25 07:25 BP 94/60 05/02/25 07:25 Pulse Ox 97 05/02/25 07:25 O2 Del Method Room Air 05/02/25 07:25 05/01/25 05/02/25 05/02/25 22:59 06:59 14:59 Intake Total 2300 / 2300 1100 / 3400 1200 / 1200 Output Total 900 / 900 Balance 2300 / 2300 200 / 2500 1200 / 1200 Weight last 48 hrs Weight 221 lb Weight 221 lb 8 oz Weight 221 lb 8 oz Weight 190 lb Physical Exam 2 Narrative: Chest: Unlabored breathing room air. No lymphadenopathy. Heart: Regular rate and rhythm. Abdomen: Soft, tender right lower quadrant Data 05/01/25 15:57 05/01/25 15:57 A&P Assessment and plan 1. Acute appendicitis: Plan: 29-year-old female with acute uncomplicated appendicitis. Discussed risk and benefits and patient agreed to proceed with laparoscopic appendectomy possible open. PDMP PDMP Reviewed: Not Reviewed Attestations 2 Medical Necessity Statement*: IV fluids, IV pain meds, IV antibiotic Coding Level of Care Code 77268 Diagnoses Acute appendicitis K35.80
[2025-05-02] MEDS: morphine 4 mg/mL SDV 1 mL IVP (10:32)
[2025-05-02] MEDS: albumin 25 G/100 ML BAG 60 G IV (11:35)
[2025-05-02] MEDS: fentaNYL 50 mcg/mL INJ 2mL IVP ×2 (12:48→14:21)
--- NOTE | 2025-05-02 14:29 | PC.PHAR ---
Patient wasn't in the room when I went up . I verified with the Pharmacy
[2025-05-02] MEDS: BUPivacaine 0.25% INJ 10 mL INJECTION (15:04)
[2025-05-02] MEDS: lidocaine-epi 1% 20 mL INJ INJECTION (15:05)
[2025-05-02] MEDS: HYDROmorphone 1 mg/mL INJ 1ml 0.5 MG IVP ×2 (15:34→15:44)
--- NOTE | 2025-05-02 16:05 | ANE.PACU2 ---
Inpatient post-anesthesia follow up: Vital signs: Temperature 99.0 F Pulse Rate 66 Respiratory Rate 14 Blood Pressure 105/67 Pulse Oximetry 93 Oxygen Delivery Me thod Room Air Oxygen Flow Rate 8 Fraction of Inspir ed Oxygen
[2025-05-02] MEDS: oxyCODONE 5 mg IR Tab/Cap PO ×3 (16:50→23:32)
[2025-05-03] VITALS (7 sets, daily range): BP systolic 92–134; BP diastolic 57–80; PULSE 49–81; RESP 17–18; TEMP 36.8–37.2; O2SAT 90–99
[2025-05-03] MEDS: metroNIDAZOLE IV 500 MG/100 ML PREMIX 100 MG IV ×2 (02:59→09:02)
[2025-05-03] MEDS: ondansetron 2 mg/ML SDV 2 mL 4 MG IVP ×2 (03:06→09:01)
[2025-05-03] MEDS: oxyCODONE 5 mg IR Tab/Cap PO (09:01)
--- NOTE | 2025-05-03 11:38 | P.PN_ITS ---
Subjective 2 Subjective: Pain improved No fevers Abdomen benign Incisions clean dry intact Vitals/I&O/Wt Last Vital Signs Temp 98.2 F 05/03/25 08:00 Pulse 81 05/03/25 08:00 Resp 17 05/03/25 09:01 BP 134/80 05/03/25 08:00 Pulse Ox 90 05/03/25 09:01 O2 Del Method Room Air 05/03/25 08:00 O2 Flow Rate 8 05/02/25 15:33 05/02/25 05/03/25 05/03/25 22:59 06:59 14:59 Intake Total 707.5 / 3115.833 1471.667 / 4587.500 354 / 354 Output Total 105 / 105 400 / 505 Balance 602.5 / 3010.833 1071.667 / 4082.500 354 / 354 Weight last 48 hrs Weight 230 lb Weight 221 lb Weight 221 lb 8 oz Weight 221 lb 8 oz Weight 190 lb Physical Exam 2 Narrative: Chest: Unlabored breathing room air. No lymphadenopathy. Heart: Regular rate and rhythm. Abdomen: Soft, appropriately tender, mildly distended. Incisions clean dry intact Urinary Catheter Management: Duff: Cath Placed During This Visit: yes, but has since been removed by the nurse Urinary Catheter Date of Insertion: 05/02/25 Urinary Catheter Time of Insertion: 15:02 Date Urinary Catheter Removed: 05/02/25 Time Urinary Catheter Discontinued: 15:17 Data 05/01/25 15:57 05/01/25 15:57 A&P Assessment and plan 1. Acute appendicitis: Plan: 29-year-old female who presented with acute appendicitis. Now tolerating a diet. Pain is improved. Abdomen benign. Cleared for discharge. PDMP PDMP Reviewed: Last Reviewed 05/02/25 16:09 EDT by Dawood Roman MD Attestations 2 Medical Necessity Statement*: IV fluids, IV meds, IV antibiotics Coding Level of Care Code 28413 Diagnoses Acute appendicitis K35.80
--- NOTE | 2025-05-03 11:38 | PM.DCS ---
Discharge Providers Date of Admission: 05/01/25 20:01 Date of Discharge: May 03, 2025 Attending Provider at Admission: Brain Sky MD Attending Provider at Discharge: Dawood Roman MD Diagnoses at Discharge Discharge Diagnosis 1. Acute appendicitis: Reason for Visit Reason for Visit: stomach pain, dizzy v/n Hospital Course Hospital Course 29-year-old female who presented with acute uncomplicated appendicitis. Taken to the OR. Laparoscopic appendectomy was unremarkable. Patient was in pain postoperatively but that this improved. Now tolerating a diet. Cleared for discharge. Follow-up in 2 weeks in clinic. Physical Exam Narrative: Chest: Unlabored breathing room air. No lymphadenopathy. Heart: Regular rate and rhythm. Abdomen: Soft, appropriately tender, mildly distended. Incisions clean dry intact Urinary Catheter Management: Duff: Cath Placed During This Visit: yes, but has since been removed by the nurse Urinary Catheter Date of Insertion: 05/02/25 Urinary Catheter Time of Insertion: 15:02 Date Urinary Catheter Removed: 05/02/25 Time Urinary Catheter Discontinued: 15:17 Discharge Data Studies Completed and Pending Completed Studies During Hospitalization Category Date Time Status CT abdomen pelvis w con* [id number] Stat Cat Scan 05/01/25 16:44 Completed Pending at discharge Category Date Time Status Pathology: Surgical [PTH] Routine Pth 05/02/25 15:09 Ordered Radiology Impressions Abdomen/Pelvis CT 05/01/25 16:44 IMPRESSION: Findings suggestive of mild appendicitis with no definite evidence gross perforation or abscess. ADDENDUM: 05/01/25 1914 THIS REPORT CONTAINS FINDINGS THAT MAY BE CRITICAL TO PATIENT CARE. The findings were verbally communicated via telephone conference with ANTHONY JONES at 7:12 PM CDT on 05/01/2025. The findings were acknowledged and understood. Laboratory Results WBC 15.74 10^3/uL (3.29-11.43) H 05/01/25 15:57 RBC 4.60 10^6/uL (3.85-5.65) 05/01/25 15:57 Hgb 14.90 g/dL (11.27-16.99) 05/01/25 15:57 Hct 43.0 % (36-47) 05/01/25 15:57 MCV 93.5 fl (85-98) 05/01/25 15:57 MCH 32.4 pg (27-33) 05/01/25 15:57 MCHC 34.7 g/dL (30-55) 05/01/25 15:57 RDW 12.9 % (12.1-15.1) 05/01/25 15:57 Plt Count 458 10^3/cmm (157-399) H 05/01/25 15:57 MPV 10.3 fL (7.4-10.4) 05/01/25 15:57 Neut % (Auto) 81.4 % 05/01/25 15:57 Lymph % (Auto) 14.4 % 05/01/25 15:57 Pocahontas % (Auto) 3.4 % 05/01/25 15:57 Eos % (Auto) 0.2 % 05/01/25 15:57 Baso % (Auto) 0.2 % 05/01/25 15:57 Neut # (Auto) 12.81 10^3/uL (1.8-7.7) H 05/01/25 15:57 Lymph # (Auto) 2.3 10^3/uL (0.8-4.8) 05/01/25 15:57 Pocahontas # (Auto) 0.5 10^3/uL (0.2-0.9) 05/01/25 15:57 Eos # (Auto) 0.0 10^3/uL (0.0-0.8) 05/01/25 15:57 Baso # (Auto) 0.0 10^3/uL (0.0-0.1) 05/01/25 15:57 Nucleated RBC % (auto) 0 % 05/01/25 15:57 Nucleated RBCs # 0.0 /100WBC 05/01/25 15:57 Sodium 141 mmol/L (136-145) 05/01/25 15:57 Potassium 3.9 mmol/L (3.5-5.1) 05/01/25 15:57 Chloride 105 mmol/L (98-107) 05/01/25 15:57 Carbon Dioxide 24 mmol/L (22-29) 05/01/25 15:57 Anion Gap 15.9 (5-19) 05/01/25 15:57 BUN 5 mg/dL (6-20) L 05/01/25 15:57 Creatinine 0.6 mg/dL (0.5-0.9) 05/01/25 15:57 GFR Calculation 119.0 mL/min (90-130) 05/01/25 15:57 Glucose 101 mg/dL (65-115) 05/01/25 15:57 Calculated Osmolality 289 mOsm/kg (285-295) 05/01/25 15:57 Lactic Acid 1.6 mmol/L (0.5-2.2) 05/01/25 15:57 Calcium 9.1 mg/dL (8.5-10.5) 05/01/25 15:57 Total Bilirubin 0.2 mg/dL (0.15-1.2) 05/01/25 15:57 AST 16 U/L (0-32) 05/01/25 15:57 ALT 11 U/L (0-33) 05/01/25 15:57 Alkaline Phosphatase 86 U/L (35-105) 05/01/25 15:57 Total Protein 7.6 g/dL (6.6-8.7) 05/01/25 15:57 Albumin 4.5 g/dL (3.5-5.2) 05/01/25 15:57 Globulin 3.1 g/dL (1.3-4.6) 05/01/25 15:57 Lipase 18 U/L (13-60) 05/01/25 15:57 HCG, Qual Negative (Negative) 05/01/25 15:57 Urine Color Yellow (Yellow) 05/01/25 17:20 Urine Appearance Cloudy (CLEAR) A 05/01/25 17:20 Urine pH 6.0 (5-7) 05/01/25 17:20 Ur Specific Buckner 1.022 (1.005-1.030) 05/01/25 17:20 Urine Protein Trace (Negative) A 05/01/25 17:20 Urine Glucose (UA) Negative (Normal) 05/01/25 17:20 Urine Ketones Trace (Negative) 05/01/25 17:20 Urine Blood Negative (Negative) 05/01/25 17:20 Urine Nitrate Negative (Negative) 05/01/25 17:20 Urine Bilirubin Negative (Negative) 05/01/25 17:20 Urine Urobilinogen 1.0 mg/dL (Negative) 05/01/25 17:20 Ur Leukocyte Esterase 1+ (Negative) A 05/01/25 17:20 Urine RBC 3-5 /hpf (0-2) 05/01/25 17:20 Urine WBC 0-5 /hpf (0-5) 05/01/25 17:20 Ur Squamous Epith Cells 11-20 /hpf (0-5) H 05/01/25 17:20 Amorphous Sediment Not Reportable 05/01/25 17:20 Urine Bacteria 1+ /hpf (NONE) H 05/01/25 17:20 Hyaline Casts 2.05 /lpf 05/01/25 17:20 Urine Opiates Screen Negative ng/mL (Negative) 05/01/25 17:20 Ur Barbiturates Screen Negative ng/mL (Negative) 05/01/25 17:20 Ur Phencyclidine Scrn Negative ng/mL (Negative) 05/01/25 17:20 Ur Amphetamines Screen Negative ng/mL (Negative) 05/01/25 17:20 U Benzodiazepines Scrn Negative ng/mL (Negative) 05/01/25 17:20 Urine Cocaine Screen Negative ng/mL (Negative) 05/01/25 17:20 U Marijuana (THC) Screen Positive ng/mL (Negative) H 05/01/25 17:20 Vitals Last Vital Signs Temp 98.2 F 05/03/25 08:00 Pulse 81 05/03/25 08:00 Resp 17 05/03/25 09:01 BP 134/80 05/03/25 08:00 Pulse Ox 90 05/03/25 09:01 O2 Del Method Room Air 05/03/25 08:00 O2 Flow Rate 8 05/02/25 15:33 Discharge Plan Discharge Patient Disposition: Home Condition: Stable Prescriptions: New oxycodone 5 mg tablet 5 mg PO Q6H PRN (Reason: pain) 5 Days Qty: 10 0RF ibuprofen 800 mg tablet 800 mg PO Q6H 5 Days Qty: 20 0RF acetaminophen [Tylenol Extra Strength] 500 mg tablet 1,000 mg PO TID 5 Days Qty: 30 0RF Continued potassium chloride [Klor-Con M20] 20 mEq tablet,ER particles/crystals 20 meq PO DAILY metoclopramide HCl 5 mg tablet 5 mg PO TID pantoprazole 40 mg tablet,delayed release (DR/EC) 40 mg PO DAILY furosemide 20 mg tablet 20 mg PO DAILY Discharge Order = DC NOW: Discharge Order (Routine); Ordered 05/03/25 Ordered By: Dawood Roman Referrals: Dawood Roman MD [Physician, General Surgery] - 2 weeks Referral Note: We have notified your physician's clinic of the need for a follow-up appointment to be scheduled. If you have not heard from them within the next 2 business days, please call them directly. Juan Bruno DO [Family Provider, Behavioral Health] Referral Note: CALL YOUR PCP FOR FOLLOW UP Discharge Diet: Usual diet Discharge Activity: Limit activity as instructed Patient Instructions: Acute Wound Care (DC), Opioid Safety, Post Anesthesia Care, Patient Portal & Nito Instructions Activity Restrictions/Additional Instructions: 1. No heavy exercise or lifting greater than 10lbs for 6 weeks. 2. No pools, saunas, bathtubs for 2 weeks. Ok to shower the day following surgery. Ok to remove any dressings you may have the day following surgery. 3. Do not drive if taking narcotics. 4. You may take over the counter tylenol 650mg every 6 hrs and ibuprofen 400mg every 6 hrs as needed for 5 days in addition to the oxycodone. 5. Follow-up in clinic in 2 weeks. 6. Call the office if you have any concerns or questions. Discharge Attestations Time Spent in Discharge Care*: greater than 30 min Quality Metrics Clinical Quality Measures [ No reported AMI, CVA or VTE this stay] Coding Level of Care Code Acute Code for Chg Fwd Diagnoses Acute appendicitis K35.80
--- NOTE | 2025-05-03 13:09 | PC.NURSE ---
Patient and patient's significant other were arguing with each other about whether or not patient should discharge. Patient stated to this nurse that after Dr. Roman came and said she could stay one more night if she felt like she needed to then left, significant other stated that he really wants to go come. Patient decided she would discharge today, even though she didn't feel it would be safe in case she fell because she would be home alone and stated she felt that her leaving would probably start an argument between the two of them.
--- NOTE | 2025-05-04 08:55 | P.OP_ITS ---
Operative Report Date of procedure: May 02, 2025 Pre-op diagnosis: Acute uncomplicated appendicitis Post-op diagnosis: same Post-op diagnosis: Acute uncomplicated appendicitis Post-op findings: Acute uncomplicated appendicitis Procedure done: Laparoscopic appendectomy Implants: N/A Specimens removed/disposition: Appendix sent to pathology Pathology: Appendix sent to pathology Surgeon: Dawood Roman MD Medical Office Asst: N/A Estimated blood loss (mL): 10 Complications: N/A Findings: Acute uncomplicated appendicitis Condition: stable Disposition: observation Brief History: 29-year-old female who presented with acute appendicitis. Discussed risk and benefits and patient agreed to proceed with laparoscopic appendectomy possible open. Procedure: After having a discussion about risks and benefits and obtaining consent from patient, patient was brought to the OR. SCDs were functioning prior to intubation. Scheduled antibiotics administered. General anesthesia was administered. Arms were tucked. A bravo catheter was placed. The abdomen was prepped and draped in the usual sterile fashion. Insufflation was achieved using a Veress needle at Campbell's point (15mmHg). A 5mm port was placed at the umbilicus using an optical view port. Then a 5mm port was placed suprapubically, and a 12mm port was placed in the left lower quadrant. The abdomen was inspected and no injuries were noted. Patient was placed in Trendelenburg and the table was rotated left. Using atraumatic bowel graspers the small bowel was placed on the left side of the abdomen, revealing the cecum and inflammed appendix. The ap pendix was dissected off the pelvic side wall bluntly. The appendix was grasped and the mesoappendix was taken down using a Ligasure. The base of the appendix was found to be intact. I proceeded to staple off the appendix at its base using a laparoscopic stapler with a blue load. The appendix was then retrieved using an endocatch bag. The staple line on the cecum was inspected, and found to be intact. The abdomen was desufflated and skin was closed using 4-0 monocryl and surgical glue. Bravo was removed at the end of the case. The patient woke up from anesthesia and was transferred to PACU without any complications
== END 2025-05-03 13:00 | disposition home or self-care (01) ==
LOC: ER 19:34 → MEDSURG 05-02 01:43
PROVIDERS: Admitting Provider Family Medicine; Emergency Provider Emergency Medicine; Visit Provider Student in an Organized Health Care Education/Training Program
PROC: 0DTJ4ZZ Resection of Appendix, Percutaneous Endoscopic Approach (ICD-10-PCS; CPT 44970; principal; 2025-05-02 13:20)
DX: K35.80 Unspecified acute appendicitis (principal); K21.9 Gastro-esophageal reflux disease without esophagitis
CPT/HCPCS: 44970; 36415; 51702; 74177; 80053; 80306; 81001; 83605; 83690; 84703; 85025; 88304; 96365; 96367; 96375; 99285; A4216; G0378; J0744; J0780; J1100; J1171; J1200; J1885; J2250; J2270; J2405; J2704; J3010; J3490; J7030; J9999; P9046

== ENCOUNTER 2025-08-03 16:28 | Emergency (ER) | payer MEDICAID, SELFPAY ==
[2025-08-03] VITALS (11 sets, daily range): BP systolic 110–138; BP diastolic 69–89; PULSE 90; TEMP 36.8; O2SAT 99–100
--- NOTE | 2025-08-03 16:30 | USR_ITS ---
PROCEDURE INFORMATION: Exam: US First Trimester, Transabdominal and US , Transvaginal Exam date and time: 08/03/2025 5:14 PM Age: 29 years old Clinical indication: LMP or gestational age (in weeks): 6w1d per patient; Antepartum complications; Bleeding; vaginal bleeding, early LABS AND CLINICAL REPORTS: Last menstrual period start date: Unknown Gestational age (Established): 6 w 1 d Estimated due date (Established): 03/28/2026 TECHNIQUE: Imaging protocol: Real-time transabdominal obstetrical ultrasound of the maternal pelvis and a first trimester , less than 14 weeks 0 days, with image documentation. Transvaginal imaging was used for better evaluation of the fetus, adnexa, and/or cervix. COMPARISON: CT abdomen pelvis w con* [id number] 05/01/2025 6:26 PM FINDINGS: GESTATION: Gestation: There is an indeterminate slightly irregular sac with a mean diameter of 6 mm. No pole is appreciated. Embryo/ cardiac activity (BPM): Not detected BIOMETRY: Gestational age (AUA): EGA (MSD) is 5 w 2 d Mean sac diameter: 0.57 cm. MATERNAL: Uterus: The uterus is normal in size and echogenicity, measuring 8.0 x 4.4 x 5.3 cm in size. Small cervical nabothian cyst measuring 5 mm. Endometrium is thickened at 14 mm. Some of the endometrial contents are relatively mobile suggesting blood. Cervix: Cervical length measures 3.6 cm. Right ovary/adnexa: The right ovary is normal in size. Right ovary measures 2.7 x 1.8 x 2.0 cm. Echogenicity of the right ovary is normal, without presence of visible follicles. Blood flow appears normal. Left ovary/adnexa: The left ovary is normal in size. Left ovary measures 1.7 x 3.1 x 2.2 cm. Echogenicity of the left ovary is normal, with presence of visible follicles. Blood flow appears normal. Intraperitoneal space: Mild anechoic fluid in the cul-de-sac. US/US OB <=14 wk fetus w transvag IMPRESSION: There is an indeterminate slightly irregular sac with a mean diameter of 6 mm. No pole is appreciated. This is compatible with intrauterine of uncertain viability. Follow-up examination in 1-2 weeks is recommended.
--- OUTSIDE RECORDS SUMMARY | 2025-08-03 16:34 | XMS_ITS | Clinical Summary ---
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 Gender Identity Not on file Sexual Orientation [...] 11/28/2007 07/31/2001, 02/12/1998, 06/12/1997, Additional history exists CERVICAL CANCER SCREENING 07/18/2021 PAP SMEAR 07/18/2021 07/18/2018 HPV/Cotest (21-29) 07/18/2023 07/18/2018 HPV VACCINES (1 - 3-dose SCD M series) 11/28/2023 INFLUENZA VACCINE (#1) 2025 08/15/2017 HPV/Cotest (30-65) 2026 07/18/2018 HEPATITIS B VACCINES Completed 06/12/1997, 01/28/1997, 1996 CHLAMYDIA SCREENING (ANNUAL) 11-24 YEARS Discontinued 04/30/2020, 11/08/2017, 10/19/2017 Procedures Procedure Name Priority Date/Time Associated Diagnosis Comments GC/CHLAMYDIA, URINE Stat 04/30/2020 6 :43 PM CDT CERV/VAG CYTO SCREEN PAP RLFX HPV Routine 07/18/2018 2:59 PM AUTO SUSPENSION AND STEERING MECHANIC Screening for malignant neoplasm of cervix from Last 3 Months or Most Recently Relevant to Health Maintenance Results * (ABNORMAL) GC/CHLAMYDIA, URINE (04/30/2020 6:43 PM CDT) CHLAMYDIA DNA AMPLIFICATION DETECTED(A) Not Detected 04/30/2020 8:27 PM CDT [facility] GC DNA AMPLIFICATION NOT DETECTED Not Detected 04/30/2020 8:27 PM CDT [facility] Urine URINE SPECIMEN / Unknown Collection / Unknown 04/30/2020 6:43 PM CDT 04/30/2020 6:55 PM CDT Narrative [facility] - 04/30/2020 8:27 PM CDT Results should not be used for the evaluation of suspected sexual abuse or for other medico-legal indications. The only legally accepted results are from culture. Results cannot be used to assess therapeutic success or failure since nucleic acids may persist following antimicrobial therapy. us Maurilio Rashid MD URINE ORDERABLES COM Final Result [facility] [address] [place] [address] * CERV/VAG CYTO SCREEN PAP RLFX HPV (07/18/2018 2:59 PM AUTO SUSPENSION AND STEERING MECHANIC) CLINICAL INFORMATION 07/25/2018 5:30 PM AUTO SUSPENSION AND STEERING MECHANIC [facility] LAST MENSTRUAL PERIOD UNKNOWN 07/25/2018 5:30 PM AUTO SUSPENSION AND STEERING MECHANIC [facility] PREV PAP: FIRST PAP 07/25/2018 5:30 PM AUTO SUSPENSION AND STEERING MECHANIC [facility] PREV BX: SEE COMMENT 07/25/2018 5:30 PM AUTO SUSPENSION AND STEERING MECHANIC [facility] Comment:INFORMATION NOT PROV IDED SOURCE Endocervix 07/25/2018 5:30 PM AUTO SUSPENSION AND STEERING MECHANIC [facility] ADEQUACY: SEE COMMENT 07/25/2018 5:30 PM AUTO SUSPENSION AND STEERING MECHANIC [facility] Comment: Satisfactory for evaluation. Endocervical/transformation zone component present. PAP INTERP SEE COMMENT 07/25/2018 5:30 PM AUTO SUSPENSION AND STEERING MECHANIC [facility] Comment:Negative for intraep ithelial lesion or malignancy. COMMENT SEE COMMENT 07/25/2018 5:30 PM AUTO SUSPENSION AND STEERING MECHANIC [facility] Comment: This Pap test has been evaluated with computer assisted technology. ADULT SCHOOL COUNSELOR: SEE COMMENT 2017 5:30 PM AUTO SUSPENSION AND STEERING MECHANIC [facility] Comment: MEF, CT(ASCP) CT screening location: [place] [address] [place] [address] REVIEW ADULT SCHOOL COUNSELOR: SEE COMMENT 07/25/2018 5:30 PM AUTO SUSPENSION AND STEERING MECHANIC [facility] Comment: MVB, CT(ASCP) CT screening location: [place] [address] [address] [place] [facility] EXPLANATORY NOTE SEE COMMENT 018 5:30 PM AUTO SUSPENSION AND STEERING MECHANIC [facility] Comment: EXPLANATORY NOTE: The [...] Unknown Collection / Unknown 07/18/2018 2:59 PM AUTO SUSPENSION AND STEERING MECHANIC 07/19/2018 8:14 AM AUTO SUSPENSION AND STEERING MECHANIC Narrative [facility] - 07/25/2018 5:30 PM AUTO SUSPENSION AND STEERING MECHANIC Performing Organization Information: Site ID: Name: [facility] Address: [address] [place] [address] Director: Rosy Lauren us Brie Miller NP PATHOLOGY/CYTOLOGY ORDERA BLES Final Result [facility] from Last 3 Months or Most Recently Relevant to Health Maintenance Insurance [facility] RX INFOCROSSING Medicaid [facility] Advance Directives For more information, please contact: [phone] * Full Code (Latest Code Status on [...]
--- OUTSIDE RECORDS SUMMARY | 2025-08-03 16:34 | XMS_ITS | Encounter Summary ---
Author Organization [facility] Address [address] [place] [address] Care Team Providers Care Cotton Chopper Name Role Phone Unavailable Primary Care Provider Unavailabl e Encounter Details Date Type Department Care Team (Latest Contact Info) Description 07/06/2005 Outpatient Historical [facility] Medicine- [address] [phone] Nate Bourne, DO NO ADDRESS ON FILE CELLULITIS OF BUTTOCK (Primary Dx) Social History Tobacco Use Types Packs/Day Years Used Date Smoking Tobacco: Never Assessed Comments Unknown Sex and Gender Information Value Date Recorded Sex Assigned at Not on file Legal 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
--- OUTSIDE RECORDS SUMMARY | 2025-08-03 16:34 | XMS_ITS | Encounter Summary ---
Author Organization [facility] Address [address] [place] [address] Care Team Providers Care Manager Of Construction Name Role Phone Unavailable Primary Care Provider Unavailabl e Encounter Details Date Type Department Care Team (Latest Contact Info) Description 08/31/2005 Outpatient Historical [facility] Medicine- [address] [phone] Nate Bourne DO NO ADDRESS ON FILE URIN TRACT INFECTION NOS (Primary Dx) Social History Tobacco Use Types Packs/Day Years Used Date Smoking Tobacco: Never Assessed Comments Unknown Sex and Gender Information Value Date Recorded Sex Assigned at Not on file Legal Sex Female 3:56 AM CLEARING HAND Gender Identity Not on file Sexual Orientation Not on file documented as of this encounter Plan of Treatment Not on file documented as of this encounter Visit Diagnoses Diagnosis Urinary tract infection, site not specified- Primary documented in this encounter
--- OUTSIDE RECORDS SUMMARY | 2025-08-03 16:34 | XMS_ITS | Clinical Summary ---
Author Organization [facility] Address [address] [place] [phone] Phone Care Team Providers Care Busperson Name Role Phone Unavailable Primary Care Provider [...] 10/19/2017 07/18/2018 Calculus of gallbladder 08/13/2017 0405/2020 Encounters Date Type Department Care Team Description 07/11/2025 Orders Only [facility] Gastroenterology- [place] [address] [place] [address] Marylin Gonzales, INSURANCE CLAIMS PROCESSOR Vomiting without nausea, unspecified vomiting type (Primary Dx); Melena; Acute generalized abdominal pain from Last 3 Months Immunizations Immunization Administration [...] AM CDT Legal Sex Female 6:27 AM BI TRI OPERATOR Gender Identity Female 02/13/2025 11:41 AM CDT [...] 01/22/2025 7:17 PM CDT Plan of Treatment Upcoming Encounters Date Type Department Care Team (Latest Contact Info) Description 09/15/2025 9:00 AM BI TRI OPERATOR Hospital Encounter [facility] Endoscopy [place] [address] [place] [address] Sunshine Gaines DO [address] [place] [address] 09/15/2025 9:00 AM BI TRI OPERATOR - 09/15/2025 9:20 AM BI TRI OPERATOR Surgery [facility] Endoscopy [place] [address] [place] [address] Sunshine Gaines, DO [address] [facility] [address] [place] [address] ESOPHAGOGASTRODUODENOSCOPY Scheduled Procedures Name Priority Associated Diagnoses Date/Ti me ESOPHAGOGASTRODUODENOSCOPY Melena Acute generalized abdominal pain Vomiting without nausea, unspecified vomiting type 09/15/2025 9:00 AM BI TRI OPERATOR COLONOSCOPY Melena Acute generalized abdominal pain Vomiting without nausea, unspecified vomiting type 09/15/2025 9:00 AM BI TRI OPERATOR Health Maintenance Due Date Last Done Comments DTAP/TDAP/TD VACCINES (6 - Tdap) 11/28/2007 07/31/2001, 02/12/1998, 06/12/1997, Additional history exists CERVICAL CANCER SCREENING 07/18/2021 PAP SMEAR 07/18/2021 07/18/2018, 07/18/2018 HPV/Cotest (21-29) 07/18/2023 07/18/2018 HPV VACCINES (1 - 3-dose SCD M series) 11/28/2023 INFLUENZA VACCINE (#1) 2025 08/15/2017 HPV/Cotest (30-65) 2026 07/18/2018 HEPATITIS B VACCINES Completed 06/12/1997, 06/12/1997, 01/28/1997, Additional history exists CHLAMYDIA SCREENING (ANNUAL) 11-24 YEARS Discontinued 04/30/2020, 11/08/2017, 10/19/2017 Goals Goal Patient Goal Type Associated Problems Recent Progress Patient-Stated? Author Autogenerat ed Goal Care Plan Autogenerated Problem No Kristi, Bea Carla Procedures Procedure Name Priority Date/Time Associated Diagnosis Comments GC/CHLAMYDIA, URINE Routine 04/30/2020 6 :43 PM CDT CERV/VAG CYTO SCREEN PAP RLFX HPV Routine 07/18/2018 2:59 PM BI TRI OPERATOR from Last 3 Months or Most Recently Relevant to Health Maintenance Results * (ABNORMAL) GC/CHLAMYDIA, URINE (04/30/2020 6:43 PM CDT) CHLAMYDIA DNA AMPLIFICATION DETECTED(A) Not Detected 04/30/2020 8:27 PM CDT [facility] GC DNA AMPLIFICATION NOT DETECTED Not Detected 04/30/2020 8:27 PM CDT [facility] Urine URINE SPECIMEN / Unknown Collection / Unknown 04/30/2020 6:43 PM CDT 04/30/2020 6:55 PM CDT Narrative [facility] - 04/30/2020 8:27 PM CDT Results should not be used for the evaluation of suspected sexual abuse or for other medico-legal indications. The only legally accepted results are from culture. Results cannot be used to assess therapeutic success or failure since nucleic acids may persist following antimicrobial therapy. Maurilio Rashid MD URINE ORDERABLES COM Final Result [facility] [address] [place] [address] [facility] CLIA# [id number] [address] [place] [id number] * CERV/VAG CYTO SCREEN PAP RLFX HPV (07/18/2018 2:59 PM BI TRI OPERATOR) CLINICAL INFORMATION 07/25/2018 5:30 PM BI TRI OPERATOR [facility] LAST MENSTRUAL PERIOD UNKNOWN 07/25/2018 5:30 PM BI TRI OPERATOR [facility] PREV PAP: FIRST PAP 07/25/2018 5:30 PM BI TRI OPERATOR [facility] PREV BX: SEE COMMENT 07/25/2018 5:30 PM BI TRI OPERATOR [facility] Comment:INFORMATION NOT PROV IDED SOURCE Endocervix 07/25/2018 5:30 PM BI TRI OPERATOR [facility] ADEQUACY: SEE COMMENT 07/25/2018 5:30 PM BI TRI OPERATOR [facility] Comment: Satisfactory for evaluation. Endocervical/transformation zone component present. PAP INTERP SEE COMMENT 07/25/2018 5:30 PM BI TRI OPERATOR [facility] Comment:Negative for intraep ithelial lesion or malignancy. COMMENT SEE COMMENT 07/25/2018 5:30 PM BI TRI OPERATOR [facility] Comment: This Pap test has been evaluated with computer assisted technology. CATERING MANAGER: SEE COMMENT 2017 5:30 PM BI TRI OPERATOR [facility] ST Comment: MEF, CT(ASCP) CT screening location: [place] [address] [address] [place] [address] REVIEW CATERING MANAGER: SEE COMMENT 07/25/2018 5:30 PM BI TRI OPERATOR [facility] ST Comment: MVB, CT(ASCP) CT screening location: [place] [address] [address] [place] [address] EXPLANATORY NOTE SEE COMMENT 018 5:30 PM BI TRI OPERATOR [facility] Comment: EXPLANATORY NOTE: The Pap is a [...] Unknown Collection / Unknown 07/18/2018 2:59 PM BI TRI OPERATOR 07/20/2018 10:14 AM BI TRI OPERATOR Narrative [facility] - 07/25/2018 5:30 PM BI TRI OPERATOR Performing Organization Information: Site ID: SL Name: [facility] Address: Pending sale to [facility] [address] [place] [phone] Director: Rosy Lauren Brie Miller CARDIOLOGY NURSE PATHOLOGY/CYTOLOGY ORDERA BLES Final Result [facility] from Last 3 Months or Most Recently Relevant to Health Maintenance Additional Health Concerns Active Problems Noted Date Diagnosed Date Autogenerated Problem 07/11/2025 Insurance [facility] [id number] AETNA [employer] [facility] [id number] * Guarantor: NORA MILIAN Account Type Relation to Patient Date of Phone Billing Address Personal/Family [address] [place] [address] RX INFOCROSSING Medicaid
--- OUTSIDE RECORDS SUMMARY | 2025-08-03 16:34 | XMS_ITS | Encounter Summary ---
Author Organization [facility] Address [address] [place] [address] Care Team Providers Care Sink Cutter Name Role Phone Unavailable Primary Care Provider Unavailabl e Encounter Details Date Type Department Care Team (Latest Contact Info) Description 06/10/2005 Outpatient Historical [facility] Medicine- [address] [phone] Nate Bourne DO NO ADDRESS ON FILE INSECT BITE HIP/LEG-INFEC (Primary Dx) Social History Tobacco Use Types Packs/Day Years Used Date Smoking Tobacco: Never Assessed Comments Unknown Sex and Gender Information Value Date Recorded Sex Assigned at Not on file Legal Sex Female 3:56 AM ZINC CHLORIDE 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
--- NOTE | 2025-08-03 16:44 | W.ED.PREGNAN ---
HPI - General: Chief complaint: Vaginal Bleeding Stated complaint: bleeding (6wks preg) Time Seen by Provider: 08/03/25 16:36 Source: patient Mode of arrival: ambulatory Limitations: no limitations History of Present Illness: Patient is a 29-year-old female, G4, P1, currently 6 weeks based off blood , who is presenting with vaginal bleeding and lower abdominal pain beginning today. Pain primarily to the suprapubic region, but also felt in the right lower quadrant and radiates to the back. Notes associated nausea vomiting, also reports that she is passing blood clots with her bleeding. This was of sudden onset, no specific alleviating or exacerbating factors. She does have history of removal of both the appendix and gallbladder. No chest pain or shortness of breath, no palpitations. She has 3 prior miscarriages, no history of ectopic or tubo-ovarian abscess. She has not seen OB yet. MD Complaint: abdominal pain and vaginal bleeding Onset (ago): hour(s) Pain Consistency: constant Location: pelvis and abdomen Vaginal bleeding: heavy and clots Patient : Yes Number of Weeks : 6 OB History - Current : no complications Associated symptoms: Reports abdominal pain, nausea and vomiting; Deny dysuria or headache(s) Related Data Home Medications ?Medication ?Instructions ?Recorded ?Confirmed furosemide 20 mg tablet 20 mg PO DAILY 05/02/25 05/15/25 metoclopramide HCl 5 mg tablet 5 mg PO TID 05/02/25 05/15/25 pantoprazole 40 mg tablet,delayed 40 mg PO DAILY 05/02/25 05/15/25 release potassium chloride 20 mEq 20 meq PO DAILY 05/02/25 05/15/25 tablet,extended release(part/cryst) (Klor-Con M) Allergies Allergy/AdvReac Type Severity Reaction Status Date / Time amoxicillin Allergy ALGY-Rash Verified 08/03/25 16:35 Penicillins Allergy ALGY-Rash Verified 08/03/25 16:35 Review of Systems General: Reports: 10 or more systems reviewed and unremarkable except in HPI and below Const: Denies: fever(s), chills, change in appetite, change in weight or diaphoresis ENMT: Denies: throat pain or hoarseness Card: Denies: chest pain, palpitations or lightheadedness Resp: Denies: dyspnea, productive cough or wheezing GI: Reports: abdominal pain, nausea and vomiting; Denies: diarrhea, constipation, bloating, change in stool character or hematochezia : Reports: vaginal bleeding and pelvic pain; Denies: flank pain, difficulty voiding, dysuria, urinary frequency or urinary urgency Musc: Reports: back pain; Denies: neck pain Skin/Breast: Denies: rash or new lesions Neuro: Denies: headache(s) or dizziness PFSH ED PFSH: Social History Smoking and tobacco/nicotine status: never used tobacco/nicotine Physical Exam Const: COMMON NORMALS: patient oriented x3, no limitations, alert and well nourished GENERAL APPEARANCE: cooperative and anxious ORIENTATION/CONSCIOUSNESS: Yes awake OTHER: Anxious, tearful Resp: COMMON NORMALS: normal respiratory effort, No retractions, No use of accessory muscles and clear to auscultation bilaterally AUSCULTATION: clear to auscultation bilaterally, no crackles, no rales, no rhonchi and no wheezes Cardio: COMMON NORMALS: regular rate, regular rhythm, No gallops present (Cardio), No clicks present (Cardio), No murmurs present (Cardio) and No rub (Cardio) RATE: regular rate RHYTHM: regular rhythm GI: COMMON NORMALS: Soft to palpation, No hepatosplenomegaly present and no masses AUSCULTATION: Yes normoactive bowel sounds PALPATION: Yes Soft to palpation, No Guarding due to palpation present (GI), No Rigid due to palpation and Yes No hepatosplenomegaly present RECTAL EXAM: deferred OTHER: Tender to palpation to suprapubic region, as well as to the right side of the abdomen : COMMON NORMALS: Yes no CVA tenderness BLADDER/KIDNEY EXAM: Yes no CVA tenderness Back/Pelvis: COMMON NORMALS: no CVA tenderness Extremity: COMMON NORMALS: normal to inspection and full ROM Neuro: COMMON NORMALS: patient oriented x3, moves all extremities, no focal motor deficits and no sensory deficits noted SENSORIUM/ORIENTATION: Yes alert Psych: COMMON NORMALS: mental status grossly normal, cooperative and speech normal SPEECH: Yes normal speech Skin: COMMON NORMALS: no rashes or lesions noted GENERAL SKIN EXAM: no rashes or lesions noted Procedures Perimortem Number of Weeks : 6 Course Vital Signs: Vital signs: Vital Signs Temperature 98.2 F 08/03/25 16:30 Pulse Rate 90 08/03/25 16:30 Blood Pressure 130/89 08/03/25 16:30 Pulse Oximetry 100 08/03/25 16:30 Oxygen Delivery Me thod Room Air 08/03/25 16:30 MDM - OB/Uterine Contractions Medical Decision Making Patient presented with vaginal bleeding cramping during , stating she is 6 weeks gestation. She has 2 prior miscarriages. Tender to palpation lower abdomen on exam, and right lower quadrant though she has a history of appendectomy meaning that this is not on my differential at this time. No CVA tenderness to indicate that this could be a stone and she has no fevers. Is noting some nausea vomiting, has not had any episodes here. She is given Zofran and Tylenol for symptoms. Beta-hCG quantitative it appears to be within range for her reported gestational age. Urinalysis showing no significant signs of UTI. OB ultrasound showing at there is intrauterine of uncertain viability and the recommendation that she follow-up in 1 to 2 weeks for reevaluation. She is ultimately stable for discharge home as she is hemodynamically stable and symptoms have improved in the emergency department. This can represent implantation bleeding and physiologic cramping, and she is urged to return if her bleeding worsens, pain worsens, or any other symptoms such as fever or worsening nausea or vomiting develop. Patient agrees with this plan at this time. Lab Data 08/03/25 17:00 08/03/25 17:00 Radiology Impressions Obstetrics Ultrasound 08/03/25 16:30 IMPRESSION: There is an indeterminate slightly irregular sac with a mean diameter of 6 mm. No pole is appreciated. This is compatible with intrauterine of uncertain viability. Follow-up examination in 1-2 weeks is recommended. Laboratory Results WBC 12.15 10^3/uL (3.29-11.43) H 08/03/25 17:00 RBC 4.08 10^6/uL (3.85-5.65) 08/03/25 17:00 Hgb 12.90 g/dL (11.27-16.99) 08/03/25 17:00 Hct 38.7 % (36-47) 08/03/25 17:00 MCV 94.9 fl (85-98) 08/03/25 17:00 MCH 31.6 pg (27-33) 08/03/25 17:00 MCHC 33.3 g/dL (30-55) 08/03/25 17:00 RDW 13.1 % (12.1-15.1) 08/03/25 17:00 Plt Count 378 10^3/cmm (157-399) 08/03/25 17:00 MPV 9.7 fL (7.4-10.4) 08/03/25 17:00 Neut % (Auto) 83.1 % 08/03/25 17:00 Lymph % (Auto) 12.7 % 08/03/25 17:00 Baxter % (Auto) 3.6 % 08/03/25 17:00 Eos % (Auto) 0.1 % 08/03/25 17:00 Baso % (Auto) 0.2 % 08/03/25 17:00 Neut # (Auto) 10.10 10^3/uL (1.8-7.7) H 08/03/25 17:00 Lymph # (Auto) 1.5 10^3/uL (0.8-4.8) 08/03/25 17:00 Baxter # (Auto) 0.4 10^3/uL (0.2-0.9) 08/03/25 17:00 Eos # (Auto) 0.0 10^3/uL (0.0-0.8) 08/03/25 17:00 Baso # (Auto) 0.0 10^3/uL (0.0-0.1) 08/03/25 17:00 Nucleated RBC % (auto) 0 % 08/03/25 17:00 Nucleated RBCs # 0.0 /100WBC 08/03/25 17:00 Sodium 136 mmol/L (136-145) 08/03/25 17:00 Potassium 3.7 mmol/L (3.5-5.1) 08/03/25 17:00 Chloride 104 mmol/L (98-107) 08/03/25 17:00 Carbon Dioxide 19 mmol/L (22-29) L 08/03/25 17:00 Anion Gap 16.7 (5-19) 08/03/25 17:00 BUN 5 mg/dL (6-20) L 08/03/25 17:00 Creatinine 0.5 mg/dL (0.5-0.9) 08/03/25 17:00 GFR Calculation 146.9 mL/min (90-130) H 08/03/25 17:00 Glucose 124 mg/dL (65-115) H 08/03/25 17:00 Calculated Osmolality 281 mOsm/kg (285-295) L 08/03/25 17:00 Calcium 8.7 mg/dL (8.5-10.5) 08/03/25 17:00 Total Bilirubin 0.3 mg/dL (0.15-1.2) 08/03/25 17:00 AST 15 U/L (0-32) 08/03/25 17:00 ALT < 5 U/L (0-33) 08/03/25 17:00 Alkaline Phosphatase 86 U/L (35-105) 08/03/25 17:00 Total Protein 7.4 g/dL (6.6-8.7) 08/03/25 17:00 Albumin 4.3 g/dL (3.5-5.2) 08/03/25 17:00 Globulin 3.1 g/dL (1.3-4.6) 08/03/25 17:00 Ser , Semi-Qnt 3802.00 mIU/mL 08/03/25 17:00 Urine Color Dark yellow (Yellow) A 08/03/25 16:51 Urine Appearance Cloudy (CLEAR) A 08/03/25 16:51 Urine pH 6.0 (5-7) 08/03/25 16:51 Ur Specific [place] 1.024 (1.005-1.030) 08/03/25 16:51 Urine Protein 1+ (Negative) A 08/03/25 16:51 Urine Glucose (UA) Negative (Normal) 08/03/25 16:51 Urine Ketones 2+ (Negative) H 08/03/25 16:51 Urine Blood 3+ (Negative) A 08/03/25 16:51 Urine Nitrate Negative (Negative) 08/03/25 16:51 Urine Bilirubin Negative (Negative) 08/03/25 16:51 Urine Urobilinogen 1.0 mg/dL (Negative) 08/03/25 16:51 Ur Leukocyte Esterase Trace (Negative) A 08/03/25 16:51 Urine RBC 6-10 /hpf (0-2) 08/03/25 16:51 Urine WBC 0-5 /hpf (0-5) 08/03/25 16:51 Ur Squamous Epith Cells 11-20 /hpf (0-5) H 08/03/25 16:51 Amorphous Sediment Not Reportable 08/03/25 16:51 Urine Bacteria 1+ /hpf (NONE) H 08/03/25 16:51 Hyaline Casts 0-4 /lpf H 08/03/25 16:51 Blood Type A Positive 08/03/25 17:00 Rho(D) Type Rh positive 08/03/25 17:00 All radiology interpretation(s) finalized by discharge Discharge Plan Discharge Patient Disposition: Home Clinical Impression: Hemorrhage during Qualifiers: Trimester: first trimester Qualified Code(s): O20.9 - Hemorrhage in early , unspecified Condition: Stable Prescriptions: No Action potassium chloride [Klor-Con M20] 20 mEq tablet,ER particles/crystals 20 meq PO DAILY metoclopramide HCl 5 mg tablet 5 mg PO TID pantoprazole 40 mg tablet,delayed release (DR/EC) 40 mg PO DAILY furosemide 20 mg tablet 20 mg PO DAILY Discharge Orders: Discharge ED (Routine); Ordered 08/03/25 Ordered By: Maurilio Dean Patient Instructions: Patient Portal & Nito Instructions Activity Restrictions/Additional Instructions: Early Bleeding You have been evaluated for vaginal bleeding in early . At this time, your hormone levels (beta-hCG) are appropriate for your stage, and it is too early to see the baby clearly on ultrasound. Bleeding in early is common and can be caused by many things. About half of women with early bleeding will continue to have a healthy , but it does increase the risk of miscarriage. What to expect: - Light bleeding or spotting may continue for a few days. - Mild cramping can be normal, but severe pain is not. What to do at home: - Rest as needed, but strict bed rest is not necessary. Normal daily activities are safe unless you are having heavy bleeding or severe pain. - Avoid sexual intercourse, douching, or using tampons until cleared by your doctor. - Take vitamins as prescribed. When to seek immediate medical attention: - Heavy bleeding (soaking more than one pad per hour for two hours) - Severe abdominal pain or shoulder pain - Dizziness, fainting, or feeling very weak - Passing large clots or tissue - Fever or chills Follow-up: - It is important to return for follow-up with your PROGRAM DIRECTOR AIR TALENT in 1 to 2 weeks, or sooner if your symptoms worsen. You may need repeat blood tests or another ultrasound to check on the . Other information: - There is no strong evidence that medications or bed rest improve outcomes for most women with early bleeding, unless you have a history of previous miscarriages, in which case your doctor may discuss progesterone treatment with you. - Emotional support is important. If you feel anxious or upset, let your healthcare provider know. If you have any questions or concerns before your follow-up, please contact your healthcare provider. Print Language: Latvian Coding Level of Care Code ED [employer] for Anurag Zimmer
[2025-08-03 17:07] LABS: Hematocrit 38.7 % (36-47); Hemoglobin 12.90 g/dL (11.27-16.99); Mean Corpuscular HGB Conc 33.3 g/dL (30-55); Mean Corpuscular Hemoglobin 31.6 pg (27-33); Mean Corpuscular Volume 94.9 fl (85-98); Nucleated Red Blood Cells % 0 %; Platelet Count 378 10^3/cmm (157-399); Red Blood Count 4.08 10^6/uL (3.85-5.65); White Blood Count 12.15 10^3/uL (3.29-11.43)
[2025-08-03 17:26] LABS: Glucose Urine UA Negative (Normal); Nitrate Urine Negative (Negative); Specific Gravity, Urine 1.024 (1.005-1.030)
[2025-08-03 17:28] LABS: Alanine Aminotransferase < 5 U/L (0-33); Albumin Level 4.3 g/dL (3.5-5.2); Alkaline Phosphatase 86 U/L (35-105); Anion Gap 16.7 (5-19); Aspartate Amino Transferase 15 U/L (0-32); Blood Urea Nitrogen 5 mg/dL (6-20); Calcium 8.7 mg/dL (8.5-10.5); Carbon Dioxide 19 mmol/L (22-29); Chloride 104 mmol/L (98-107); Globulin 3.1 g/dL (1.3-4.6); Glucose 124 mg/dL (65-115); Osmolality Calculated 281 mOsm/kg (285-295); Potassium 3.7 mmol/L (3.5-5.1); Sodium 136 mmol/L (136-145); Total Protein 7.4 g/dL (6.6-8.7)
[2025-08-03 17:45] LABS: UA Slide Review UA Slide Review Perf
== END 2025-08-03 18:20 | disposition home or self-care (01) ==
PROVIDERS: Emergency Medicine; Emergency Provider Physician Assistant
DX: O46.91 Antepartum hemorrhage, unspecified, first trimester (principal); Z3A.01 Less than 8 weeks gestation of pregnancy
CPT/HCPCS: 36415; 76801; 76817; 80053; 81001; 84702; 85025; 86900; 99284; J9999; Q0162

== ENCOUNTER 2025-08-08 10:30 | Emergency (ER) | payer MEDICAID, SELFPAY ==
--- OUTSIDE RECORDS SUMMARY | 2025-08-08 10:36 | XMS_ITS | Encounter Summary ---
Author Organization [facility] Address [address] [place] [address] Care Team Providers Care Tie Tamper Name Role Phone Unavailable Primary Care Provider Unavailabl e Encounter Details Date Type Department Care Team (Latest Contact Info) Description 07/06/2005 Outpatient Historical [facility]- [address] [phone] Nate Bourne, DO NO ADDRESS ON FILE CELLULITIS OF BUTTOCK (Primary Dx) Social History Tobacco Use Types Packs/Day Years Used Date Smoking Tobacco: Never Assessed Comments Unknown Sex and Gender Information Value Date Recorded Sex Assigned at Not on file Legal Sex Female 3:56 AM SWING GRINDER Gender Identity Not on file Sexual Orientation Not on file documented as of this encounter Plan of Treatment Not on file documented as of this encounter Visit Diagnoses Diagnosis Cellulitis and abscess of buttock- Primary documented in this encounter
--- OUTSIDE RECORDS SUMMARY | 2025-08-08 10:36 | XMS_ITS | Encounter Summary ---
Author Organization [facility] Address [address] [place] [address] Care Team Providers Care Gas Station Attendant Name Role Phone Unavailable Primary Care Provider Unavailabl e Reason for Visit * Reason Onset Date Comments pt is a ob and bleeding / new pt 08/08/2025 Encounter Details Date Type Department Care Team (Late st Contact Info) Description 08/08/2025 Telephone [facility] OBGYN-Benjamín [place] [address] [place] [address] Gladys Salgado MD [address] [place] [address] pt is a ob and bleeding / new pt Social History Tobacco Use Types Packs/Day Years [...] AM CDT Legal Sex Female 6:27 AM SECURITY CONTROL ROOM OFFICER Gender Identity Female 02/13/2025 11:41 AM CDT Sexual Orientation Choose not to disclose 2024 11:41 AM CDT documented as of this encounter Miscellaneous Notes * Telephone Encounter - Sudha Jim RN - 08/08/2025 8:24 AM CST Pt states bleeding started on 08/03 with bright red and then slowed down and then stopped. Yesterday started back and this morning is bright red again. Hasn't had to change her pad since last night. States she is approximately 6-7 weeks. RN provided bleeding precautions and provided number for AAC. RITY CONTROL ROOM OFFICER * Telephone Encounter - Keara Gonzalez - 08/08/2025 8:05 AM SECURITY CONTROL ROOM OFFICER Ob pt went to ER on 08/03 in [place] and they said she had a hemorrhage and a vaginal US and couldn't see baby clearly. Actively bleeding again today. [phone] RITY CONTROL ROOM OFFICER documented in this encounter Plan of Treatment Upcoming Encounters Date Type Department Care Team (Latest Contact Info) Description 09/15/2025 9:00 AM SECURITY CONTROL ROOM OFFICER Hospital Encounter [facility] [place] [address] [place] [address] Sunshine Gaines, DO [address] [facility] [address] [place] [address] 09/15/2025 9:00 AM SECURITY CONTROL ROOM OFFICER - 09/15/2025 9:20 AM SECURITY CONTROL ROOM OFFICER Surgery [facility] [place] [address] [place] [address] Sunshine Gaines, DO [address] [facility] [address] [place] [address] ESOPHAGOGASTRODUODENOSCOPY Scheduled Procedures Name Priority Associated Diagnoses Date/Ti me ESOPHAGOGASTRODUODENOSCOPY Melena Acute generalized abdominal pain Vomiting without nausea, unspecified vomiting type 09/15/2025 9:00 AM SECURITY CONTROL ROOM OFFICER COLONOSCOPY Melena Acute generalized abdominal pain Vomiting without nausea, unspecified vomiting type 09/15/2025 9:00 AM SECURITY CONTROL ROOM OFFICER documented as of this encounter Goals Goal Patient Goal Type Associated Problems Recent Progress Patient-Stated? Author Autogenerat ed Goal Care Plan Autogenerated Problem No KristiBea documented as of this encounter Visit Diagnoses Not on filedocumented in this encounter Additional Health Concerns Active Problems Noted Date Diagnosed Date Autogenerated Problem 07/11/2025 documented as of this encounter
--- OUTSIDE RECORDS SUMMARY | 2025-08-08 10:36 | XMS_ITS | Clinical Summary ---
Author Organization [facility] Address [address] [place] [address] Phone Care Team Providers Care Gasket Inspector Name Role Phone Unavailable Primary Care Provider [...] Encounters Date Type Department Care Team Description 08/08/2025 Telephone [facility] OBGYN-Benjamín [place] [address] [place] [address] Gladys Salgado MD pt is a ob and bleeding / new pt 07/11/2025 Orders Only [facility] Gastroenterology- [place] [address] [place] [phone] Marylin Gonzales, VETERINARY RECEPTIONIST Vomiting without nausea, unspecified vomiting type (Primary [...] AM CDT Legal Sex Female 6:27 AM HOUSING COORDINATOR Gender Identity Female 02/13/2025 11:41 AM CDT [...] (Latest Contact Info) Description 09/15/2025 9:00 AM HOUSING COORDINATOR Hospital Encounter [facility] [place] [address] [place] [address] Sunshine Gaines DO [address] [facility] [address] [place] [address] 09/15/2025 9:00 AM HOUSING COORDINATOR - 09/15/2025 9:20 AM HOUSING COORDINATOR Surgery [facility] [place] [address] [place] [address] Berrypito Govea, Sunshine, DO [address] [facility] [address] [place] [address] ESOPHAGOGASTRODUODENOSCOPY Scheduled Procedures Name Priority Associated Diagnoses Date/Ti me ESOPHAGOGASTRODUODENOSCOPY Melena Acute generalized abdominal pain Vomiting without nausea, unspecified vomiting type 09/15/2025 9:00 AM HOUSING COORDINATOR COLONOSCOPY Melena Acute generalized abdominal pain Vomiting without nausea, unspecified vomiting type 09/15/2025 9:00 AM HOUSING COORDINATOR Health Maintenance Due Date Last Done Comments DTAP/TDAP/TD VACCINES (6 - Tdap) 11/28/2007 07/31/2001, 02/12/1998, 06/12/1997, Additional history exists CERVICAL CANCER SCREENING 07/18/2021 PAP SMEAR 07/18/2021 07/18/2018, 07/18/2018 HPV/Cotest (21-29) 07/18/2023 07/18/2018 HPV VACCINES (1 - 3-dose SCD M series) 11/28/2023 Preventative Visit- Commercial 09/11/2024 09/12/2017 INFLUENZA VACCINE (#1) 2025 08/15/2017 HPV/Cotest (30-65) [...] PAP RLFX HPV Routine 07/18/2018 2:59 PM HOUSING COORDINATOR from Last 3 Months or Most Recently Relevant to Health Maintenance Results * (ABNORMAL) GC/CHLAMYDIA, URINE (04/30/2020 6:43 PM CDT) [facility] [address] CHLAMYDIA DNA AMPLIFICATION DETECTED(A) Not Detected 04/30/2020 8:27 PM CDT [facility] GC DNA AMPLIFICATION NOT DETECTED Not Detected 04/30/2020 8:27 PM CDT [facility] Urine URINE SPECIMEN / Unknown Collection / Unknown 04/30/2020 6:43 PM CDT 04/30/2020 6:55 PM CDT Narrative [facility] - 04/30/2020 8:27 PM CDT Results should not be used for the evaluation of suspected sexual abuse or for other medico-legal indications. The only legally accepted results are from culture. Results cannot be used to assess therapeutic success or failure since nucleic acids may persist following antimicrobial therapy. Maurilio Rashid MD URINE ORDERABLES COM Final Result [facility] [address] [place] [address] [facility] CLIA# [id number] [address] [place] [address] * CERV/VAG CYTO SCREEN PAP RLFX HPV (07/18/2018 2:59 PM HOUSING COORDINATOR) [facility] [address] CLINICAL INFORMATION 07/25/2018 5:30 PM HOUSING COORDINATOR [facility] LAST MENSTRUAL PERIOD UNKNOWN 07/25/2018 5:30 PM HOUSING COORDINATOR [facility] PREV PAP: FIRST PAP 07/25/2018 5:30 PM HOUSING COORDINATOR [facility] PREV BX: SEE COMMENT 07/25/2018 5:30 PM HOUSING COORDINATOR [facility] Comment:INFORMATION NOT PROV IDED SOURCE End[employer] 07/25/2018 5:30 PM HOUSING COORDINATOR [facility] ADEQUACY: SEE COMMENT 07/25/2018 5:30 PM HOUSING COORDINATOR [facility] Comment: Satisfactory for evaluation. Endocervical/transformation zone component present. PAP INTERP SEE COMMENT 07/25/2018 5:30 PM HOUSING COORDINATOR [facility] Comment:Negative for intraep ithelial lesion or malignancy. COMMENT SEE COMMENT 07/25/2018 5:30 PM HOUSING COORDINATOR [facility] Comment: This Pap test has been evaluated with computer assisted technology. TESTBOARD OPERATOR: SEE COMMENT 2017 5:30 PM HOUSING COORDINATOR [facility] Comment: MEF, CT(ASCP) CT screening location: [place] [address] [address] [place] [address] REVIEW TESTBOARD OPERATOR: SEE COMMENT 07/25/2018 5:30 PM HOUSING COORDINATOR [facility] Comment: MVB, CT(ASCP) CT screening location: [place] [address] [address] EXPLANATORY NOTE SEE COMMENT 018 5:30 PM HOUSING COORDINATOR [facility] Comment: EXPLANATORY NOTE: The Pap is a [...] Unknown Collection / Unknown 07/18/2018 2:59 PM HOUSING COORDINATOR 07/20/2018 10:14 AM HOUSING COORDINATOR Narrative [facility] - 07/25/2018 5:30 PM HOUSING COORDINATOR Performing Organization Information: Site ID: Name: [facility] Address: [facility] [address] [place] [address] Director: Rosy Lauren Brie Miller NP PATHOLOGY/CYTOLOGY ORDERA BLES Final Result [facility] from Last 3 Months or Most Recently Relevant to Health Maintenance Additional Health Concerns Active Problems Noted Date Diagnosed Date Autogenerated Problem 07/11/2025 Insurance [facility] [id number] [employer] [facility] PLAN OF [facility] [id number] * Guarantor: ALESSANDRO MILIAN Account Type Relation to Patient Date of Phone Billing Address Personal/Family [address] [address] RX [employer] Medicaid
--- OUTSIDE RECORDS SUMMARY | 2025-08-08 10:36 | XMS_ITS | Clinical Summary ---
Author Organization [facility] on Address [address] [place] [address] [place] [id number] Phone Care Team Providers Care Staff Analyst Name Role Phone Unavailable Primary Care [...] on file Legal Sex Female 3:56 AM CORK SORTER Gender Identity Not on file Sexual Orientation [...] PAP RLFX HPV Routine 07/18/2018 2:59 PM CORK SORTER Screening for malignant neoplasm of cervix from Last 3 Months or Most Recently Relevant to Health Maintenance Results * (ABNORMAL) GC/CHLAMYDIA, URINE (04/30/2020 6:43 PM CDT) CHLAMYDIA DNA AMPLIFICATION DETECTED(A) Not Detected 04/30/2020 8:27 PM CDT [facility] GC DNA AMPLIFICATION NOT DETECTED Not Detected 04/30/2020 8:27 PM CDT [facility] Urine URINE SPECIMEN / Unknown Collection / Unknown 04/30/2020 6:43 PM CDT 04/30/2020 6:55 PM CDT Narrative [facility] - 04/30/2020 8:27 PM CDT Results should not be used for the evaluation of suspected sexual abuse or for other medico-legal indications. The only legally accepted results are from culture. Results cannot be used to assess therapeutic success or failure since nucleic acids may persist following antimicrobial therapy. us Maurilio Rashid MD URINE ORDERABLES COM Final Result [facility] [address] [place] [address] * CERV/VAG CYTO SCREEN PAP RLFX HPV (07/18/2018 2:59 PM CORK SORTER) CLINICAL INFORMATION 07/25/2018 5:30 PM CORK SORTER [facility] LAST MENSTRUAL PERIOD UNKNOWN 07/25/2018 5:30 PM CORK SORTER [facility] PREV PAP: FIRST PAP 07/25/2018 5:30 PM CORK SORTER [facility] PREV BX: SEE COMMENT 07/25/2018 5:30 PM CORK SORTER [facility] Comment:INFORMATION NOT PROV IDED SOURCE Endocervix 07/25/2018 5:30 PM CORK SORTER [facility] ADEQUACY: SEE COMMENT 07/25/2018 5:30 PM CORK SORTER [facility] Comment: Satisfactory for evaluation. Endocervical/transformation zone component present. PAP INTERP SEE COMMENT 07/25/2018 5:30 PM CORK SORTER [facility] Comment:Negative for intraep ithelial lesion or malignancy. COMMENT SEE COMMENT 07/25/2018 5:30 PM CORK SORTER [facility] Comment: This Pap test has been evaluated with computer assisted technology. BAG MACHINE OPERATOR: SEE COMMENT 2017 5:30 PM CORK SORTER [facility] Comment: MEF, CT(ASCP) CT screening location: [place] [address] [place] [address] REVIEW BAG MACHINE OPERATOR: SEE COMMENT 07/25/2018 5:30 PM CORK SORTER [facility] Comment: MVB, CT(ASCP) CT screening location: [place] [address] [address] [place] [facility] EXPLANATORY NOTE SEE COMMENT 018 5:30 PM CORK SORTER [facility] Comment: EXPLANATORY NOTE: The [...] Unknown Collection / Unknown 07/18/2018 2:59 PM CORK SORTER 07/19/2018 8:14 AM CORK SORTER Narrative [facility] - 07/25/2018 5:30 PM CORK SORTER Performing Organization Information: Site ID: Name: [facility] Address: [address] [place] [address] Director: Rosy Lauren us Brie Miller NP PATHOLOGY/CYTOLOGY ORDERA BLES Final Result [facility] from Last 3 Months or Most Recently Relevant to Health Maintenance Insurance [facility] RX INFO[employer]OSS[employer] Medicaid [facility] Advance Directives For more information, please contact: [phone] * Full Code (Latest Code Status on [...]
--- OUTSIDE RECORDS SUMMARY | 2025-08-08 10:36 | XMS_ITS | Encounter Summary ---
Author Organization [facility] Address [address] [facility] [place] [address] Care Team Providers Care Windows Application Developer Name Role Phone Unavailable Primary Care Provider Unavailabl e Encounter Details Date Type Department Care Team (Latest Contact Info) Description 06/10/2005 Outpatient Historical [facility] Medicine- [address] [phone] Nate Bourne DO NO ADDRESS ON FILE INSECT BITE HIP/LEG-INFEC (Primary Dx) Social History Tobacco Use Types Packs/Day Years Used Date Smoking Tobacco: Never Assessed Comments Unknown Sex and Gender Information Value Date Recorded Sex Assigned at Not on file 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
--- OUTSIDE RECORDS SUMMARY | 2025-08-08 10:36 | XMS_ITS | Encounter Summary ---
Author Organization [facility] Address [address] [place] [address] Care Team Providers Care Superannuation Funds Manager Name Role Phone Unavailable Primary Care Provider Unavailabl e Encounter Details Date Type Department Care Team (Latest Contact Info) Description 08/31/2005 Outpatient Historical [facility] Medicine- [address] [phone] Nate Bourne DO NO ADDRESS ON FILE URIN TRACT INFECTION NOS (Primary Dx) Social History Tobacco Use Types Packs/Day Years Used Date Smoking Tobacco: Never Assessed Comments Unknown Sex and Gender Information Value Date Recorded Sex Assigned at Not on file 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
[2025-08-08 10:40] VITALS: BP 130/90; PULSE 94; RESP 18; TEMP 36.7; O2SAT 99
--- NOTE | 2025-08-08 10:45 | ED_ITS ---
HPI - Female Genitourinary 2 General: Chief complaint: Vaginal Bleeding Stated complaint: Pregnate Vaginal Bleeding Time Seen by Provider: 08/08/25 10:45 Source: patient Mode of arrival: ambulatory Limitations: no limitations History of Present Illness: Patient is a 29-year-old female currently approximately 6 weeks here for continued vaginal bleeding and lower abdominal cramping. She was seen here in ED about 5 days ago for same symptoms. She states she is not passing blood clots-bleeding seems to be intermittent. US on last visit inconclusive and as follows: US/US OB <=14 wk fetus w transvag IMPRESSION: There is an indeterminate slightly irregular sac with a mean diameter of 6 mm. No pole is appreciated. This is compatible with intrauterine of uncertain viability. Follow-up examination in 1-2 weeks is recommended. Patient is not complaining of dysuria. She no longer has an appendix. HCG on last ED visit was roughly 3800. She does not have an OB established. MD elicited complaint: vaginal bleeding and possible miscarriage Pertinent past history: prior miscarriages Onset (ago): day(s) Severity: mild Quality of pain: cramping Consistency: intermittent Vaginal discharge: none Vaginal bleeding: scant Exacerbating factors: none Relieving factors: none Associated symptoms: Deny headache(s) Treatment prior to arrival: none Sexual activity: Yes Patient : Yes Related Data Home Medications ?Medication ?Instructions ?Recorded ?Confirmed furosemide 20 mg tablet 20 mg PO DAILY 05/02/2501/03 metoclopramide HCl 5 mg tablet 5 mg PO TID 05/02/25 pantoprazole 40 mg tablet,delayed 40 mg PO DAILY 05/0205/15/25 release potassium chloride 20 mEq 20 meq PO DAILY 05/02/2501/03 tablet,extended release(part/cryst) (Klor-Con M) Allergies Allergy/AdvReac Type Severity Reaction Status Date / Time amoxicillin Allergy ALGY-Rash Verified 08/03/25 16:35 Penicillins Allergy ALGY-Rash Verified 08/03/25 16:35 Review of Systems 2 Const: Denies: fever(s) Card: Denies: chest pain Resp: Denies: dyspnea GI: Denies: vomiting or change in bowel habits : Reports: vaginal bleeding and pelvic pain (cramping); Denies: flank pain, difficulty voiding, dysuria, urinary frequency or urinary urgency Skin/Breast: Denies: rash Neuro: Denies: headache(s) or dizziness PFSH ED 2 PFSH: Social History Smoking and tobacco/nicotine status: never used tobacco/nicotine Physical Exam 2 Const: COMMON NORMALS: no acute distress, patient oriented x3, no limitations, alert and well nourished Resp: COMMON NORMALS: normal respiratory effort and clear to auscultation bilaterally AUSCULTATION: clear to auscultation bilaterally Cardio: COMMON NORMALS: regular rate and regular rhythm RATE: regular rate RHYTHM: regular rhythm GI: COMMON NORMALS: Normal to inspection, nondistended, normoactive bowel sounds present, Soft to palpation, No hepatosplenomegaly present and no masses INSPECTION: Yes normal to inspection AUSCULTATION: Yes normoactive bowel sounds PALPATION: Yes Soft to palpation, Yes Tenderness to palpation present (GI) (mild suprapubic pain/cramping), No Guarding due to palpation present (GI), No Rigid due to palpation and Yes No hepatosplenomegaly present : COMMON NORMALS: Yes no CVA tenderness BLADDER/KIDNEY EXAM: Yes no CVA tenderness Back/Pelvis: COMMON NORMALS: no CVA tenderness and thoracic and lumbar spine normal to inspection Extremity: COMMON NORMALS: normal to inspection GENERAL: Yes normal exam except as noted Neuro: COMMON NORMALS: patient oriented x3 SENSORIUM/ORIENTATION: Yes alert Skin: COMMON NORMALS: no rashes or lesions noted GENERAL SKIN EXAM: no rashes or lesions noted Course 2 Vital Signs: Vital signs: Vital Signs Temperature 98.1 F 08/08/25 10:40 Pulse Rate 89 08/08/25 11:55 Respiratory Rate 18 08/08/25 10:40 Blood Pressure 108/65 08/08/25 11:55 Pulse Oximetry 98 08/08/25 11:55 Oxygen Delivery Me thod Room Air 08/08/25 10:40 MDM - Female Medical Decision Making Patient here for continued intermittent vaginal bleeding. She was seen here 5 days ago and had an ultrasound with indeterminate viability. Her hCG at that visit was roughly 3800. It is 4600 today. hCG does not seem to be rising appropriately for normal progressing . I do not see any indication to repeat an ultrasound 5 days later. She can have an ultrasound repeated in a week or so. Would like primary care/OB to continue to trend hCGs. Case management referral placed for this. Strict return ED precautions discussed regarding worsening or severe vaginal bleeding, worsening or severe pain, or any other concerns she may have. Medical Records I reviewed the patient's medical records. Lab Data I reviewed the patient's lab results. 08/08/25 10:58 Laboratory Results WBC 9.50 10^3/uL (3.29-11.43) 08/08/25 10:58 RBC 3.96 10^6/uL (3.85-5.65) 08/08/25 10:58 Hgb 12.50 g/dL (11.27-16.99) 08/08/25 10:58 Hct 37.5 % (36-47) 08/08/25 10:58 MCV 94.7 fl (85-98) 08/08/25 10:58 MCH 31.6 pg (27-33) 08/08/25 10:58 MCHC 33.3 g/dL (30-55) 08/08/25 10:58 RDW 12.9 % (12.1-15.1) 08/08/25 10:58 Plt Count 356 10^3/cmm (157-399) 08/08/25 10:58 MPV 9.6 fL (7.4-10.4) 08/08/25 10:58 Neut % (Auto) 73.9 % 08/08/25 10:58 Lymph % (Auto) 20.9 % 08/08/25 10:58 Antelope % (Auto) 4.4 % 08/08/25 10:58 Eos % (Auto) 0.3 % 08/08/25 10:58 Baso % (Auto) 0.2 % 08/08/25 10:58 Neut # (Auto) 7.01 10^3/uL (1.8-7.7) 08/08/25 10:58 Lymph # (Auto) 2.0 10^3/uL (0.8-4.8) 08/08/25 10:58 Antelope # (Auto) 0.4 10^3/uL (0.2-0.9) 08/08/25 10:58 Eos # (Auto) 0.0 10^3/uL (0.0-0.8) 08/08/25 10:58 Baso # (Auto) 0.0 10^3/uL (0.0-0.1) 08/08/25 10:58 Nucleated RBC % (auto) 0 % 08/08/25 10:58 Nucleated RBCs # 0.0 /100WBC 08/08/25 10:58 Ser , Semi-Qnt 4620.00 mIU/mL 08/08/25 10:58 No radiology studies performed this visit Discharge Plan Discharge Patient Disposition: Home Clinical Impression: Threatened miscarriage in early Condition: Stable Prescriptions: No Action potassium chloride [Klor-Con M20] 20 mEq tablet,ER particles/crystals 20 meq PO DAILY metoclopramide HCl 5 mg tablet 5 mg PO TID pantoprazole 40 mg tablet,delayed release (DR/EC) 40 mg PO DAILY furosemide 20 mg tablet 20 mg PO DAILY Discharge Orders: Discharge ED (Routine); Ordered 08/08/25 Ordered By: Eleanor Holcomb Patient Instructions: Patient Portal & Nito Instructions Activity Restrictions/Additional Instructions: As we discussed, I will place a case management referral to get you set up with our women's health clinic for further evaluation. As we discussed, I recommend following up with primary care in approximately 48 to 72 hours to have hCG redrawn. You will need a repeat ultrasound in approximately a week. As we discussed, you need to return to the emergency department for onset of severe vaginal bleeding or worsening abdominal/pelvic pain. Print Language: [place] Arabian Coding Level of Care Code ED Identification Clerk for Anurag Zimmer
[2025-08-08 11:02] LABS: Hematocrit 37.5 % (36-47); Hemoglobin 12.50 g/dL (11.27-16.99); Mean Corpuscular HGB Conc 33.3 g/dL (30-55); Mean Corpuscular Hemoglobin 31.6 pg (27-33); Mean Corpuscular Volume 94.7 fl (85-98); Nucleated Red Blood Cells % 0 %; Platelet Count 356 10^3/cmm (157-399); Red Blood Count 3.96 10^6/uL (3.85-5.65); White Blood Count 9.50 10^3/uL (3.29-11.43)
[2025-08-08 11:13] VITALS: BP 124/75; PULSE 72; O2SAT 98
[2025-08-08 11:55] VITALS: BP 108/65; PULSE 89; O2SAT 98
--- NOTE | 2025-08-11 07:29 | DCPLANNER ---
messaged [facility] for er f/u
== END 2025-08-08 11:56 | disposition home or self-care (01) ==
PROVIDERS: Emergency Medicine; Emergency Provider Physician Assistant
DX: O20.0 Threatened abortion (principal); Z3A.01 Less than 8 weeks gestation of pregnancy
CPT/HCPCS: 36415; 84702; 85025; 99283

== ENCOUNTER 2025-08-12 10:36 | Observation (INO) | payer MEDICAID, SELFPAY ==
[2025-08-12] VITALS (17 sets, daily range): BP systolic 99–145; BP diastolic 54–97; PULSE 65–120; RESP 15–20; TEMP 36.3–36.9; O2SAT 94–100
--- NOTE | 2025-08-12 10:40 | US_ITS ---
WS: [id number] Early obstetrical ultrasound. HISTORY: Threatened AB. Possible ectopic. COMPARISON: 08/03/2025. Uterus is anteverted and slightly enlarged. Mild thickening of the endometrium but no intrauterine gestational sac. The small fluid collection noted within the endometrial canal on the prior study may have been a pseudosac. Complex free fluid in the pelvis is more than physiologic. Hemoperitoneum is likely. Adjacent and inseparable from the RIGHT uterus is a heterogeneous mass which is separate from the ovary. Mass with minimal increased vascularity. This mass measures at least 3.3 x 3.6 x 4.0 cm and is highly suspicious for an ectopic considering the patient's history. This is probably a hemorrhagic and possibly ruptured ectopic. There is no pole identified. The RIGHT ovary is posterior to this mass. RIGHT ovarian vascularity is limited due to deep position of the ovary. Normal size LEFT ovary with normal vascularity. US/US OB transvaginal 22910 IMPRESSION: 1. No intrauterine gestation. 2. Hemoperitoneum, moderate t amount of complex fluid in the pelvis. 3. Heterogeneous mass in the RIGHT adnexa is lateral but inseparable from the u terus and anterior to the ovary. This mass measures 3.3 x 3.6 x 4.0 cm and is h ighly suspicious for an ectopic which may have ruptured and be hemorr hagic. Ectopic needs to be excluded. 4. RIGHT ovary is posterior to the RIGHT adnexal mass. Vascularity to the RIGHT ovary is not identified due to the deep position of the ovary. Notified Dr. Wang at 08/12/2025 1:41 PM.
--- NOTE | 2025-08-12 11:22 | ED_ITS ---
HPI - Abdominal Pain 2 General: Chief Complaint: Abdominal Pain Stated Complaint: OB sent, possible ectopic ,bleeding,pain Time Seen by Provider: 08/12/25 11:12 History of Present Illness: 29-year-old female who presents to the e mergency room with right lower quadrant abdominal pain and concern for ectopic . She had been seen here about 10 days ago and had a normal ultrasound at that time and was not having pain at that time. She had been having some bleeding. She was at follow-up today with an OB practitioner who did an ultrasound and there was concern for a 5 x 5 x 5 cm mass near the right ovary that was concerning for an ectopic . She is in considerable pain on arrival. Her quant was around 4000 when she was here previously. Related Data Home Medications ?Medication ?Instructions ?Recorded ?Confirmed acetaminophen 325 mg tablet 650 mg PO QID PRN Fever Or Pain 08/12/25 08/12/25 (Tylenol) vits no.133-ferrous 1 tab PO DAILY 08/12/25 1 10/13/24 fumarate 28 mg-folic acid 800 mcg tablet () Allergies Allergy/AdvReac Type Severity Reaction Status Date / Time amoxicillin Allergy ALGY-Rash Verified 08/03/25 16:35 Penicillins Allergy ALGY-Rash Verified 08/03/25 16:35 Review of Systems 2 Narrative: Constitutional symptoms: Negative except as documented in HPI. Skin symptoms: Negative except as documented in HPI. Eye symptoms: Negative except as documented in HPI. ENMT symptoms: Negative except as documented in HPI. Respiratory symptoms: Negative except as documented in HPI. Cardiovascular symptoms: Negative except as documented in HPI. Gastrointestinal symptoms: Negative except as documented in HPI. Genitourinary symptoms: Negative except as documented in HPI. Musculoskeletal symptoms: Negative except as documented in HPI. Neurologic symptoms: Negative except as documented in HPI. Psychiatric symptoms: Negative except as documented in HPI. Endocrine symptoms: Negative except as documented in HPI. PFSH ED 2 PFSH: Medical History (Updated 08/12/25 @ 14:22 by Sparkle Mancilla MD) Abdominal pain Ectopic without intrauterine Social History Smoking and tobacco/nicotine status: never used tobacco/nicotine Physical Exam 2 Narrative: EXAM NARRATIVE: General: Alert, moderate distress with pain Skin: Warm, diaphoretic. Head: Normocephalic, atraumatic. Neck: Supple, trachea midline. Eye: Extraocular movements are intact. Ears, nose, mouth and throat: mucosa moist. Cardiovascular: Regular, Normal peripheral perfusion. Respiratory: Lungs are clear to auscultation, respirations are non-labored, breath sounds are equal, Symmetrical chest wall expansion. Gastrointestinal: Soft, extremely tender in the right adnexal area, Non distended Musculoskeletal: Normal ROM, no deformity. Neurological: Alert and oriented, No focal neurological deficit observed. Psychiatric: Cooperative, appropriate mood & affect. Course 2 Vital Signs: Vital signs: Vital Signs Temperature 97.5 F L 08/12/25 13:17 Pulse Rate 86 08/12/25 13:17 Respiratory Rate 17 08/12/25 13:17 Blood Pressure 145/89 08/12/25 13:17 Pulse Oximetry 97 08/12/25 13:17 Oxygen Delivery Me thod Room Air 08/12/25 13:17 MDM - Abdominal Pain Medical Decision Making Medical decision making Patient's reason for coming to the emergency room: Social determinants: Unemployed, I reviewed the patient's medical record. Patient arrives with an ultrasound read.. This indicates she had an hCG of 49 and 135 on 07 15 and 07 17. The read shows right adnexal mass measuring 5 x 5 x 5 concerning for ectopic. Reviewing an ultrasound done here on 1122 this was not present at that time. I reviewed the patient's current home meds Alternate historians: None Differential diagnosis: including but not limited to and based on the above HPI, review of systems and physical exam: This patient most definitely a ectopic . I spoke with Dr. Wang with OB. Given the limited amount of read on the ultrasound she recommends a repeat ultrasound and basic lab work with a quant and coags. Lab Review: Laboratory results were reviewed and interpreted by myself the emergency room physician. No leukocytosis. No anemia. No renal failure. Quant is 3300. Urinalysis is negative for infection. Patient is a positive so no no need for RhoGAM Ultrasound shows a heterogeneous mass in the right adnexa that is highly suspicious for an ectopic . May have ruptured and may be hemorrhagic. This was reviewed and interpreted by myself the emergency room physician. I also reviewed the radiology report. Assessment of risk: Level of risk: High risk patient. Risk of rupturing this ectopic and hemorrhaging. Hospitalization considerations: Patient is being sent to the operating room with Dr. Wang. Assessment and plan: Ectopic - Patient is being taken to the OR. - Discussed findings and plan with patient. Answered any questions. - All laboratory values were reviewed and interpreted personally by myself, the ER physician - All imaging was reviewed and interpreted personally by myself, the ER physician. - Evaluation and treatment of this problem were appropriate in the emergency setting Lab Data 08/12/25 11:22 08/12/25 11:22 Labs/Radiology: Radiology Impressions Transvaginal US 08/12/25 10:40 IMPRESSION: 1. No intrauterine gestation. 2. Hemoperitoneum, moderate t amount of complex fluid in the pelvis. 3. Heterogeneous mass in the RIGHT adnexa is lateral but inseparable from the uterus and anterior to the ovary. This mass measures 3.3 x 3.6 x 4.0 cm and is highly suspicious for an ectopic which may have ruptured and be hemorrhagic. Ectopic needs to be excluded. 4. RIGHT ovary is posterior to the RIGHT adnexal mass. Vascularity to the RIGHT ovary is not identified due to the deep position of the ovary. Notified Dr. Wang at 08/12/2025 1:41 PM. Laboratory Results WBC 10.52 10^3/uL (3.29-11.43) 08/12/25 11:22 RBC 4.31 10^6/uL (3.85-5.65) 08/12/25 11:22 Hgb 13.70 g/dL (11.27-16.99) 08/12/25 11:22 Hct 40.2 % (36-47) 08/12/25 11:22 MCV 93.3 fl (85-98) 08/12/25 11:22 MCH 31.8 pg (27-33) 08/12/25 11:22 MCHC 34.1 g/dL (30-55) 08/12/25 11:22 RDW 12.8 % (12.1-15.1) 08/12/25 11:22 Plt Count 428 10^3/cmm (157-399) H 08/12/25 11:22 MPV 10.3 fL (7.4-10.4) 08/12/25 11:22 Neut % (Auto) 70.5 % 08/12/25 11:22 Lymph % (Auto) 24.0 % 08/12/25 11:22 Aurora % (Auto) 4.4 % 08/12/25 11:22 Eos % (Auto) 0.4 % 08/12/25 11:22 Baso % (Auto) 0.3 % 08/12/25 11:22 Neut # (Auto) 7.42 10^3/uL (1.8-7.7) 08/12/25 11:22 Lymph # (Auto) 2.5 10^3/uL (0.8-4.8) 08/12/25 11:22 [place] # (Auto) 0.5 10^3/uL (0.2-0.9) 08/12/25 11:22 Eos # (Auto) 0.0 10^3/uL (0.0-0.8) 08/12/25 11:22 Baso # (Auto) 0.0 10^3/uL (0.0-0.1) 08/12/25 11:22 Nucleated RBC % (auto) 0 % 08/12/25 11:22 Nucleated RBCs # 0.0 /100WBC 08/12/25 11:22 PT 13.50 SECONDS (12.1-14.9) 08/12/25 11:22 INR 0.96 (0.8-1.2) 08/12/25 11:22 APTT 29.2 SECONDS (23.9-36.7) 08/12/25 11:22 Sodium 139 mmol/L (136-145) 08/12/25 11:22 Potassium 3.8 mmol/L (3.5-5.1) 08/12/25 11:22 Chloride 101 mmol/L (98-107) 08/12/25 11:22 Carbon Dioxide 23 mmol/L (22-29) 08/12/25 11:22 Anion Gap 18.8 (5-19) 08/12/25 11:22 BUN 5 mg/dL (6-20) L 08/12/25 11:22 Creatinine 0.5 mg/dL (0.5-0.9) 08/12/25 11:22 GFR Calculation 146.9 mL/min (90-130) H 08/12/25 11:22 Glucose 102 mg/dL (65-115) 08/12/25 11:22 Calculated Osmolality 285 mOsm/kg (285-295) 08/12/25 11:22 Calcium 9.3 mg/dL (8.5-10.5) 08/12/25 11:22 Total Bilirubin 0.6 mg/dL (0.15-1.2) 08/12/25 11:22 AST 15 U/L (0-32) 08/12/25 11:22 ALT 12 U/L (0-33) 08/12/25 11:22 Alkaline Phosphatase 93 U/L (35-105) 08/12/25 11:22 Total Protein 7.7 g/dL (6.6-8.7) 08/12/25 11:22 Albumin 4.6 g/dL (3.5-5.2) 08/12/25 11: Globulin 3.1 g/dL (1.3-4.6) 08/12/25 11:22 Ser , Semi-Qnt 3375.00 mIU/mL 08/12/25 11:22 Urine Color Dark yellow (Yellow) A 08/12/25 11:40 Urine Appearance Cloudy (CLEAR) A 08/12/25 11:40 Urine pH 6.5 (5-7) 08/12/25 11:40 Ur Specific [place] 1.017 (1.005-1.030) 08/12/25 11:40 Urine Protein 1+ (Negative) A 08/12/25 11:40 Urine Glucose (UA) Negative (Normal) 08/12/25 11:40 Urine Ketones Trace (Negative) 08/12/25 11:40 Urine Blood 3+ (Negative) A 08/12/25 11:40 Urine Nitrate Negative (Negative) 08/12/25 11:40 Urine Bilirubin 1+ (Negative) H 08/12/25 11:40 Urine Urobilinogen 1.0 mg/dL (Negative) 08/12/25 11:40 Ur Leukocyte Esterase 1+ (Negative) A 08/12/25 11:40 Urine RBC 6-10 /hpf (0-2) 08/12/25 11:40 Urine WBC 6-10 /hpf (0-5) 08/12/25 11:40 Ur Squamous Epith Cells 6-10 /hpf (0-5) 08/12/25 11:40 Amorphous Sediment Not Reportable 08/12/25 11:40 Urine Bacteria 1+ /hpf (NONE) H 08/12/25 11:40 Hyaline Casts 0-4 /lpf H 08/12/25 11:40 Blood Type A Positive 08/12/25 11:22 Rho(D) Type Rh positive 08/12/25 11:22 Antibody Screen Negative 08/12/25 11:22 All radiology interpretation(s) finalized by discharge Discharge Plan Discharge Patient Disposition: Placed in Observation Admit Provider: Kary Wang Clinical Impression: Ectopic without intrauterine , Abdominal pain Coding Level of Care Code ED Chemical Applicator for Chg Goran
--- OUTSIDE RECORDS SUMMARY | 2025-08-12 11:34 | XMS_ITS | Encounter Summary ---
Author Organization [facility] Address [address] [place] [address] Care Team Providers Care Duplex Trimmer Name Role Phone Unavailable Primary Care Provider Unavailabl e Encounter Details Date Type Department Care Team (Latest Contact Info) Description 08/31/2005 Outpatient Historical [facility] Medicine- [address] [phone] Nate Bourne DO NO ADDRESS ON FILE URIN TRACT INFECTION NOS (Primary Dx) Social History Tobacco Use Types Packs/Day Years Used Date Smoking Tobacco: Never Assessed Comments Unknown Sex and Gender Information Value Date Recorded Sex Assigned at Not on file 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
--- OUTSIDE RECORDS SUMMARY | 2025-08-12 11:34 | XMS_ITS | Encounter Summary ---
Author Organization [facility] Address [address] [place] [address] Care Team Providers Care Vulnerability Assessment Analyst Name Role Phone Unavailable Primary Care Provider Unavailabl e Encounter Details Date Type Department Care Team (Latest Contact Info) Description 06/10/2005 Outpatient Historical [facility] Medicine- [address] [phone] Nate Bourne DO NO ADDRESS ON FILE INSECT BITE HIP/LEG-INFEC (Primary Dx) Social History Tobacco Use Types Packs/Day Years Used Date Smoking Tobacco: Never Assessed Comments Unknown Sex and Gender Information Value Date Recorded Sex Assigned at Not on file 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
--- OUTSIDE RECORDS SUMMARY | 2025-08-12 11:34 | XMS_ITS | Clinical Summary ---
Author Organization [facility] on Address [address] [place] [address] [place] [address] Phone Care Team Providers Care Program Advocate Name Role Phone Unavailable Primary Care Provider [...] on file Legal Sex Female 3:56 AM GOLF MANAGER Gender Identity Not on file Sexual [...] PAP RLFX HPV Routine 07/18/2018 2:59 PM GOLF MANAGER Screening for malignant neoplasm of cervix from Last 3 Months or Most Recently Relevant to Health Maintenance Results * (ABNORMAL) GC/CHLAMYDIA, URINE (04/30/2020 6:43 PM CDT) CHLAMYDIA DNA AMPLIFICATION DETECTED(A) Not Detected 04/30/2020 8:27 PM CDT [facility] GC DNA AMPLIFICATION NOT DETECTED Not Detected 04/30/2020 8:27 PM CDT [facility] Urine URINE SPECIMEN / Unknown Collection / Unknown 04/30/2020 6:43 PM CDT 04/30/2020 6:55 PM CDT Narrative [facility] - 04/30/2020 8:27 PM CDT Results should not be used for the evaluation of suspected sexual abuse or for other medico-legal indications. The only legally accepted results are from culture. Results cannot be used to assess therapeutic success or failure since nucleic acids may persist following antimicrobial therapy. us Maurilio Rashid MD URINE ORDERABLES COM Final Result [facility] [address] [place] [address] * CERV/VAG CYTO SCREEN PAP RLFX HPV (07/18/2018 2:59 PM GOLF MANAGER) CLINICAL INFORMATION 07/25/2018 5:30 PM GOLF MANAGER [facility] LAST MENSTRUAL PERIOD UNKNOWN 07/25/2018 5:30 PM GOLF MANAGER [facility] PREV PAP: FIRST PAP 07/25/2018 5:30 PM GOLF MANAGER [facility] PREV BX: SEE COMMENT 07/25/2018 5:30 PM GOLF MANAGER [facility] Comment:INFORMATION NOT PROV IDED SOURCE Endocervix 07/25/2018 5:30 PM GOLF MANAGER [facility] ADEQUACY: SEE COMMENT 07/25/2018 5:30 PM GOLF MANAGER [facility] Comment: Satisfactory for evaluation. Endocervical/transformation zone component present. PAP INTERP SEE COMMENT 07/25/2018 5:30 PM GOLF MANAGER [facility] Comment:Negative for intraep ithelial lesion or malignancy. COMMENT SEE COMMENT 07/25/2018 5:30 PM GOLF MANAGER [facility] Comment: This Pap test has been evaluated with computer assisted technology. DIRECTOR OF EVENTS: SEE COMMENT 2017 5:30 PM GOLF MANAGER [facility] Comment: MEF, CT(ASCP) CT screening location: [place] [address] [place] [address] REVIEW DIRECTOR OF EVENTS: SEE COMMENT 07/25/2018 5:30 PM GOLF MANAGER [facility] Comment: MVB, CT(ASCP) CT screening location: [place] [address] [address] [place] [facility] EXPLANATORY NOTE SEE COMMENT 018 5:30 PM GOLF MANAGER [facility] Comment: EXPLANATORY NOTE: [...] Unknown Collection / Unknown 07/18/2018 2:59 PM GOLF MANAGER 07/19/2018 8:14 AM GOLF MANAGER Narrative [facility] - 07/25/2018 5:30 PM GOLF MANAGER Performing Organization Information: Site ID: Name: [facility] Address: [address] [place] [address] Director: Rosy Lauren us Brie Miller NP PATHOLOGY/CYTOLOGY ORDERA BLES Final Result [facility] from Last 3 Months or Most Recently Relevant to Health Maintenance Insurance [facility] RX INFOCROSSING Medicaid [facility] Advance Directives For more information, please contact: [phone] * Full Code (Latest Code Status on [...]
--- OUTSIDE RECORDS SUMMARY | 2025-08-12 11:34 | XMS_ITS | Encounter Summary ---
Author Organization [facility] Address [address] [place] [address] Care Team Providers Care Information Technology Program Manager Name Role Phone Unavailable Primary Care Provider Unavailabl e Reason for Visit * Reason Onset Date Comments pt is a ob and bleeding / new pt 08/08/2025 Encounter Details Date Type Department Care Team (Late st Contact Info) Description 08/08/2025 Telephone [facility] OBGYN-Benjamín Aaron Umu [address] [place] [address] Gladys Salgado MD [address] [place] [address] pt is a ob and [...] AM CDT Legal Sex Female 6:27 AM COIL WRAPPER Gender Identity Female 02/13/2025 11:41 AM CDT [...] bleeding precautions and provided number for AAC. WRAPPER * Telephone Encounter - Keara Gonzalez - 08/08/2025 8:05 AM COIL WRAPPER Ob pt went to ER on 08/03 in [place] and they said she had a hemorrhage and a vaginal US and couldn't see baby clearly. Actively bleeding again today. [phone] WRAPPER documented in this encounter Plan of Treatment Upcoming Encounters Date Type Department Care Team (Latest Contact Info) Description 09/15/2025 9:00 AM COIL WRAPPER Hospital Encounter [facility] [place] [address] [place] [address] [place] [address] Sunshine Gaines, DO [address] [facility] [address] [place] [address] 09/15/2025 9:00 AM COIL WRAPPER - 09/15/2025 9:20 AM COIL WRAPPER Surgery [facility] [place] [address] [place] [address] [place] [address] Sunshine Gaines, DO [address] [facility] [address] [place] [address] ESOPHAGOGASTRODUODENOSCOPY Scheduled Procedures Name Priority Associated Diagnoses Date/Ti me ESOPHAGOGASTRODUODENOSCOPY Melena Acute generalized abdominal pain Vomiting without nausea, unspecified vomiting type 09/15/2025 9:00 AM COIL WRAPPER COLONOSCOPY Melena Acute generalized abdominal pain Vomiting without nausea, unspecified vomiting type 09/15/2025 9:00 AM COIL WRAPPER documented as of this encounter Goals Goal Patient Goal Type Associated Problems Recent Progress Patient-Stated? Author Autogenerat ed Goal Care Plan Autogenerated Problem No KristiBea documented as of this encounter Visit Diagnoses Not on filedocumented in this encounter Additional Health Concerns Active Problems Noted Date Diagnosed Date Autogenerated Problem 07/11/2025 documented as of this encounter
--- OUTSIDE RECORDS SUMMARY | 2025-08-12 11:34 | XMS_ITS | Encounter Summary ---
Author Organization [facility] Address [address] [place] [address] Care Team Providers Care Senior Software Systems Engineer Name Role Phone Unavailable Primary Care Provider Unavailabl e Encounter Details Date Type Department Care Team (Latest Contact Info) Description 07/06/2005 Outpatient Historical [facility] Medicine- [address] [phone] Nate Bourne, DO NO ADDRESS ON FILE CELLULITIS OF BUTTOCK (Primary Dx) Social History Tobacco Use Types Packs/Day Years Used Date Smoking Tobacco: Never Assessed Comments Unknown Sex and Gender Information Value Date Recorded Sex Assigned at Not on file Legal Sex Female 3:56 AM 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
--- OUTSIDE RECORDS SUMMARY | 2025-08-12 11:34 | XMS_ITS | Clinical Summary ---
Author Organization [facility] Address [address] [facility] [address] [place] [address] Phone Care Team Providers Care Scale And Skip Car Operator Name Role Phone Unavailable Primary Care Provider [...] Type Department Care Team Description 08/08/2025 Telephone [facility] OBGYN-Benjamín Galen [place] [address] [place] [address] Gladys Salgado MD pt is a ob and bleeding / new pt 07/11/2025 Orders Only [facility] Gastroenterology- [place] [address] [place] [phone] Marylin Gonzales, MARKETING SYSTEMS ANALYST Vomiting without nausea, unspecified vomiting type (Primary [...] AM CDT Legal Sex Female 6:27 AM SALESPERSON DRIVER Gender Identity Female 02/13/2025 11:41 AM CDT [...] (Latest Contact Info) Description 09/15/2025 9:00 AM SALESPERSON DRIVER Hospital Encounter [facility] End[facility] [place] [address] [place] [address] Sunshine Gaines DO [address] [facility] [address] [place] [address] 09/15/2025 9:00 AM SALESPERSON DRIVER - 09/15/2025 9:20 AM SALESPERSON DRIVER Surgery [facility] [place] [address] [place] [address] Berrypito Govea, Sunshine, DO [address] [facility] [address] [place] [address] ESOPHAGOGASTRODUODENOSCOPY Scheduled Procedures Name Priority Associated Diagnoses Date/Ti me ESOPHAGOGASTRODUODENOSCOPY Melena Acute generalized abdominal pain Vomiting without nausea, unspecified vomiting type 09/15/2025 9:00 AM SALESPERSON DRIVER COLONOSCOPY Melena Acute generalized abdominal pain Vomiting without nausea, unspecified vomiting type 09/15/2025 9:00 AM SALESPERSON DRIVER Health Maintenance Due Date Last Done Comments [...] PAP RLFX HPV Routine 07/18/2018 2:59 PM SALESPERSON DRIVER from Last 3 Months or Most Recently Relevant to Health Maintenance Results * (ABNORMAL) GC/CHLAMYDIA, URINE (04/30/2020 6:43 PM CDT) [facility] CHLAMYDIA DNA AMPLIFICATION DETECTED(A) Not Detected 04/30/2020 8:27 PM CDT [facility] GC DNA AMPLIFICATION NOT DETECTED Not Detected 04/30/2020 8:27 PM CDT [facility] Urine URINE SPECIMEN / Unknown Collection / Unknown 04/30/2020 6:43 PM CDT 04/30/2020 6:55 PM CDT Narrative [facility] - 04/30/2020 8:27 PM CDT Results should not be used for the evaluation of suspected sexual abuse or for other medico-legal indications. The only legally accepted results are from culture. Results cannot be used to assess therapeutic success or failure since nucleic acids may persist following antimicrobial therapy. Maurilio Rashid MD URINE ORDERABLES COM Final Result [facility] [address] [place] [address] [facility] CLIA# [id number] [address] [place] [id number] * CERV/VAG CYTO SCREEN PAP RLFX HPV (07/18/2018 2:59 PM SALESPERSON DRIVER) [facility] CLINICAL INFORMATION 07/25/2018 5:30 PM SALESPERSON DRIVER [facility] LAST MENSTRUAL PERIOD UNKNOWN 07/25/2018 5:30 PM SALESPERSON DRIVER [facility] PREV PAP: FIRST PAP 07/25/2018 5:30 PM SALESPERSON DRIVER [facility] PREV BX: SEE COMMENT 07/25/2018 5:30 PM SALESPERSON DRIVER [facility] Comment:INFORMATION NOT PROV IDED SOURCE Endocervix 07/25/2018 5:30 PM SALESPERSON DRIVER [facility] ADEQUACY: SEE COMMENT 07/25/2018 5:30 PM SALESPERSON DRIVER [facility] Comment: Satisfactory for evaluation. Endocervical/transformation zone component present. PAP INTERP SEE COMMENT 07/25/2018 5:30 PM SALESPERSON DRIVER [facility] ST Comment:Negative for intraep ithelial lesion or malignancy. COMMENT SEE COMMENT 07/25/2018 5:30 PM SALESPERSON DRIVER [facility] Comment: This Pap test has been evaluated with computer assisted technology. TEACHER OF THE HEARING IMPAIRED: SEE COMMENT 2017 5:30 PM SALESPERSON DRIVER [facility] Comment: MEF, CT(ASCP) CT screening location: [place] [address] [address] [place] [address] REVIEW TEACHER OF THE HEARING IMPAIRED: SEE COMMENT 07/25/2018 5:30 PM SALESPERSON DRIVER [facility] ST Comment: MVB, CT(ASCP) CT screening location: [place] [address] [address] [place] EXPLANATORY NOTE SEE COMMENT 018 5:30 PM SALESPERSON DRIVER [facility] ST Comment: EXPLANATORY NOTE: [...] Unknown Collection / Unknown 07/18/2018 2:59 PM SALESPERSON DRIVER 07/20/2018 10:14 AM SALESPERSON DRIVER Narrative [facility] - 07/25/2018 5:30 PM SALESPERSON DRIVER Performing Organization Information: Site ID: [place] Name: [facility] Address: [facility] [address] [place] [address] Director: Rosy Lauren Brie Miller NP PATHOLOGY/CYTOLOGY ORDERA BLES Final Result [facility] from Last 3 Months or Most Recently Relevant to Health Maintenance Additional Health Concerns Active Problems Noted Date Diagnosed Date Autogenerated Problem 07/11/2025 Insurance [facility] COMMUNITY PLAN [facility] [id number] [employer] [facility] PLAN [facility] [id number] * Guarantor: ALESSANDRO MILIAN Account Type Relation to Patient Date of Phone Billing Address Personal/Family [address] [place] [address] RX INFOCROSSING Medicaid
[2025-08-12 11:49] LABS: Hematocrit 40.2 % (36-47); Hemoglobin 13.70 g/dL (11.27-16.99); Mean Corpuscular HGB Conc 34.1 g/dL (30-55); Mean Corpuscular Hemoglobin 31.8 pg (27-33); Mean Corpuscular Volume 93.3 fl (85-98); Nucleated Red Blood Cells % 0 %; Platelet Count 428 10^3/cmm (157-399); Red Blood Count 4.31 10^6/uL (3.85-5.65); White Blood Count 10.52 10^3/uL (3.29-11.43)
[2025-08-12 12:00] LABS: INR 0.96 (0.8-1.2); Prothrombin Time 13.50 SECONDS (12.1-14.9)
[2025-08-12 12:01] LABS: Partial Thromboplastin Time 29.2 SECONDS (23.9-36.7)
[2025-08-12] MEDS: ondansetron 2 mg/ML SDV 2 mL 4 MG IVP (12:11)
[2025-08-12] MEDS: HYDROmorphone 0.5 MG/0.5 ML INJ 1 MG IVP (12:11)
[2025-08-12 12:15] LABS: Alanine Aminotransferase 12 U/L (0-33); Albumin Level 4.6 g/dL (3.5-5.2); Alkaline Phosphatase 93 U/L (35-105); Anion Gap 18.8 (5-19); Aspartate Amino Transferase 15 U/L (0-32); Blood Urea Nitrogen 5 mg/dL (6-20); Calcium 9.3 mg/dL (8.5-10.5); Carbon Dioxide 23 mmol/L (22-29); Chloride 101 mmol/L (98-107); Globulin 3.1 g/dL (1.3-4.6); Glucose 102 mg/dL (65-115); Osmolality Calculated 285 mOsm/kg (285-295); Potassium 3.8 mmol/L (3.5-5.1); Sodium 139 mmol/L (136-145); Total Protein 7.7 g/dL (6.6-8.7)
[2025-08-12 12:33] LABS: Glucose Urine UA Negative (Normal); Nitrate Urine Negative (Negative); Specific Gravity, Urine 1.017 (1.005-1.030)
[2025-08-12 12:59] LABS: UA Slide Review UA Slide Review Perf
--- NOTE | 2025-08-12 13:01 | PM.OBGYHP ---
Providers/Chief Complaint Admitting Physician: Kary Wang MD Chief Complaint: OB sent, possible ectopic ,bleeding,pain HPI BODY STRAIGHTENER History of Present Illness Nora Whitaker is a 29 year old female with of unknown location, + quant and 3-5 cm mass in right adnexa. She came [facility] [place]. Pain past 2 weeks and greatly increased today. Sweating and uncomfortable. Review of Systems Narrative: Pertinent positives listed in HPI: Const: Denies: fever(s) or chills Card: Denies: chest pain, palpitations or syncope Resp: Denies: SOB, cough GI: Denies: nausea or vomiting : Denies: flank pain, dysuria or urinary frequency Musc: Denies: back pain or extremity swelling Skin/Breast: Denies: rash, pruritus or breast pain Neuro: Denies: headache(s) or dizziness Psych: Denies: depression or mood swings Endo: Denies: polyuria, cold or heat intolerance Woody/Lymph: Denies: easy bruising or easy bleeding Medications/Allergies Home Medications ?Medication ?Instructions ?Recorded ?Confirmed ?Last Taken ?Type acetaminophen 325 mg tablet 650 mg PO QID PRN Fever Or Pain 08/12/25 08/12/25 08/11/25 History (Tylenol) vits no.133-ferrous 1 tab PO DAILY 08/12/25 08/12/25 Unknown History fumarate 28 mg-folic acid 800 mcg tablet () Allergies Allergy/AdvReac Type Severity Reaction Status Date / Time amoxicillin Allergy ALGY-Rash Verified 08/03/25 16:35 Penicillins Allergy ALGY-Rash Verified 08/03/25 16:35 PFSH BODY STRAIGHTENER PFSH: Medical History (Updated 08/12/25 @ 13:25 by Kary Wang MD) Abdominal pain Ectopic without intrauterine Social History Smoking and tobacco/nicotine status: never used tobacco/nicotine Vitals/I&O/Wt Last Vital Signs Temp 98.1 F 08/12/25 10:42 Pulse 120 H 08/12/25 10:42 Resp 20 H 08/12/25 10:42 BP 145/84 08/12/25 10:42 Pulse Ox 98 08/12/25 10:42 Weight last 48 hrs Weight 190 lb Physical Exam Narrative: Appearance: grossly normal Attitude: calm and engaged, appropriate eye contact Const: no acute distress, oriented x3 cooperative Chest: Symmetrical chest wall rise Resp: normal respiratory effort, clear to auscultation bilaterally Cardio: tchy rate and regular rhythm GI: Soft to palpation, RLQ Tender, mild Guarding, Extremity: normal inspection, negative for no pedal edema Neuro: oriented x3 and moves all extremities, speech normal Psych: mental status grossly normal, and Normal thought process present Skin: no rashes or lesions noted Data 08/12/25 11:22 08/12/25 11:22 Results Labs OB ([facility]): Obstetrics US 08/03/25 Blood Type A Positive Today Antibody Screen Negative Today Hct, (36-47) 40.2 % Today Hgb, (11.27-16.99) 13.70 g/dL Today Rho(D) Type Rh positive Today Plt Count, (157-399) 428 10^3/cmm H Today Ser , Semi-Qnt 3375.00 mIU/mL Today HCG, Qual, (Negative) Negative 05/01/25 Urine Opiates Screen, (Negative) Negative ng/mL 05/01/25 Ur Barbiturates Screen, (Negative) Negative ng/mL 05/01/25 Ur Phencyclidine Scrn, (Negative) Negative ng/mL 05/01/25 Ur Amphetamines Screen, (Negative) Negative ng/mL 05/01/25 U Benzodiazepines Scrn, (Negative) Negative ng/mL 05/01/25 Urine Cocaine Screen, (Negative) Negative ng/mL 05/01/25 U Marijuana (THC) Screen, (Negative) Positive ng/mL H 05/01/25 Micro Urine Specimen Today A&P Assessment and plan 1. Ectopic without intrauterine : Mass in right adnexal region with pain, tachycardia, abnormal rising and falling quants. Consented for ectopic surgical intervention.Patient counseled on recommendation for surgical management. She is also counseled on risks including, but not limited to, pain, infection, bleeding, blood loss requiring transfusion, harm to internal organs requiring repair at the time of surgery or subsequent surgical repair and even from unforeseen complication or surgical issue. She is also counseled on risks of transfusion as well as possibility for an open abdominal case due to bleeding risk or decreased patient stability the inherent increased risks due to laparotomy. She is counseled on the need for excision or removal of ectopic and possibility of salpingectomy, oophorectomy or other indicated procedures as necessary by ectopic location. She is also counseled on possible effect on fertility given location ectopic and need for removal of fertility utilized structures and/or adhesive disease. She voices understanding. 2. Abdominal pain: PDMP PDMP Reviewed: Not Reviewed Attestations Medical Necessity Statement*: NA Coding Level of Care Code Acute Code for Chg Fwd Diagnoses Ectopic without intrauterine O00.90 Abdominal pain R10.9
--- NOTE | 2025-08-12 13:18 | P.ANESASSM_ITS ---
Pre-Anesthetic Assessment Height/Weight: Height 1.68 m Weight 86.183 kg Temp Pulse Resp BP Pulse Ox O2 Del Method 97.5 F L 86 17 145/89 97 Room Air 08/12/25 13:17 08/12/25 13:17 08/12/25 13:17 08/12/25 13:17 08/12/25 13:17 08/12/25 13:17 Operation Date: 08/12/25 13:50 Proposed Procedures p Laparoscopic Ectopic (Not Applicable) - Kary Wang MD Familial anesthetic complications: None Was Beta Alfonzo taken within 24 hours: N/A Was Clonidine taken within 24 hours: N/A Last intake: 2 saltine crackers a little before 0900 Social No alcohol and No tobacco Exam alert, oriented x 3, clear to auscultation bilaterally and regular rate & rhythm Airway Mallampati: Class III Anesthetic Plan ASA status: 2E Anesthesia: General Risk of > 500 ml blood loss (7ml/kg in children): No Medications/Allergies Home Medications ?Medication ?Instructions ?Recorded ?Confirmed ?Last Taken ?Type acetaminophen 325 mg tablet 650 mg PO QID PRN Fever Or Pain 08/12/25 08/12/25 08/11/25 History (Tylenol) vits no.133-ferrous 1 tab PO DAILY 08/12/25 1 10/13/24 Unknown History fumarate 28 mg-folic acid 800 mcg tablet () Allergies Allergy/AdvReac Type Severity Reaction Status Date / Time amoxicillin Allergy ALGY-Rash Verified 08/03/25 16:35 Penicillins Allergy ALGY-Rash Verified 08/03/25 16:35 [facility] Anesthesia Social History Smoking and tobacco/nicotine status: never used tobacco/nicotine Data Anesthesia 08/12/25 11:22 08/12/25 11:22 Short CBC 08/12/25 Range/Units 11:22 WBC 10.52 (3.29-11.43) 10^3/uL Hgb 13.70 (11.27-16.99) g/dL Hct 40.2 (36-47) % MCV 93.3 (85-98) fl Plt Count 428 H (157-399) 10^3/cmm Neut % (Auto) 70.5 % Neut # (Auto) 7.42 (1.8-7.7) 10^3/uL BMP 08/12/25 11:22 Sodium 139 Potassium 3.8 Chloride 101 Carbon Dioxide 23 BUN 5 L Creatinine 0.5 Glucose 102 Calcium 9.3 Liver Function 08/12/25 Range/Units 11:22 Total Bilirubin 0.6 (0.15-1.2) mg/dL AST 15 (0-32) U/L ALT 12 (0-33) U/L Alkaline Phosphatase 93 (35-105) U/L Albumin 4.6 (3.5-5.2) g/dL Urine 08/12/25 Range/Units 11:40 Urine Color Dark yellow A (Yellow) Urine Appearance Cloudy A (CLEAR) Urine pH 6.5 (5-7) Ur Specific [place] 1.017 (1.005-1.030) Urine Protein 1+ A (Negative) Urine Glucose (UA) Negative (Normal) Urine Ketones Trace (Negative) Urine Nitrate Negative (Negative) Urine Bilirubin 1+ H (Negative) Ur Leukocyte Esterase 1+ A (Negative) Urine RBC 6-10 (0-2) /hpf Urine WBC 6-10 (0-5) /hpf Blood Bank 08/12/25 11:22 Blood Type A Positive Rho(D) Type Rh positive Antibody Screen Negative Coags 08/12/25 11:22 PT 13.50 INR 0.96 APTT 29.2
[2025-08-12] MEDS: ceFAZolin 2,000 mg SDV 2000 MG IVP (14:10)
--- NOTE | 2025-08-12 15:13 | PM.OP ---
Operative Report Date of procedure: August 12, 2025 Pre-op diagnosis: right ectopic Post-op diagnosis: same plus pelvic adhesive disease Procedure done: Operative laproscopy with RSO Specimens removed/disposition: right ectopic, tube, ovary Surgeon: Kary Wang MD Financial Retirement Plan Specialist: or staff Estimated blood loss: 5 cc Findings: large right ectopic including 80% of tube adherent to ovary with adhesions Procedure: Procedure: The risks, benefits, complications, treatment options, and expected outcomes were discussed with the patient.? The patient concurred with the proposed plan, giving informed consent. The patient was then taken to Operating Room, identified and the procedure verified. She was placed in a dorsal lithotomy position and prepped and draped in a normal, sterile fashion. A sponge stick was placed in the vagina and attention turned to the abdomen. A combination of scope and 10 mm blunt trocar was introduced and? intraabdominal placement noted visually. A survey of the patient?s abdomen and pelvis noted right ectopic and adhesions. Attention was then turned to the patients lower abdomen and two lower quadrant ports were placed under direct visualization, first passing a spinal needle to ascertain no vasculature was located in proximity of the ports. The pelvis was irrigated and cleared of all clots and debris. The right tube and ovary were noted to be normal and without pathology. The ectopic was grasped with atraumatic graspers and the ligasure device used to seal and transect the tube and ligament, also seperate adhesions to ovary. Excellent hemostasis was noted. The endocatch bag was inserted into the larger port site and the tissue placed in the bag and removed without difficulty. Once removed the right ovary appeared compromised of blood supply so it was removed by similar fashion and brought out with endosac. The trocar was replaced and the pelvis copiously irrigated. The remaining pelvic organs were again closely inspected and noted to be free of any bleeding.? The lower ports were removed under direct visualization. The umbilical port was removed after as much CO2 gas was removed as possible. The 10mm port site was closed with 0-vicryl to the fascia and all skin sites were closed with dermabond or suture. All sponge, lap and needle counts were correct times at least two. The patient was taken to the recovery room in stable condition.
--- NOTE | 2025-08-12 16:10 | ANE.PACU2 ---
Inpatient post-anesthesia follow up: Airway intact: Yes Vital signs: Temperature 98.5 F Pulse Rate 66 Respiratory Rate 16 Blood Pressure 119/75 Pulse Oximetry 100 Oxygen Delivery Me thod Room Air Oxygen Flow Rate Fraction of Inspir ed Oxygen Hydration adequate: Yes Nausea and vomiting: No Pain level: 1 Mental status: Baseline
[2025-08-12] MEDS: HYDROcodone-acetaminophen 5-325 mg Tablet PO ×2 (16:36→22:26)
[2025-08-13 01:29] VITALS: RESP 18; O2SAT 100
[2025-08-13] MEDS: oxyCODONE-APAP 5-325 mg Tablet PO (01:29)
[2025-08-13 01:32] VITALS: BP 109/70; PULSE 79; RESP 18; TEMP 36.6; O2SAT 100
[2025-08-13 03:43] VITALS: BP 100/69; PULSE 57; RESP 16; TEMP 36.9; O2SAT 100
[2025-08-13] MEDS: HYDROcodone-acetaminophen 5-325 mg Tablet PO (04:49)
[2025-08-13 05:22] LABS: Hematocrit 33.1 % (36-47); Hemoglobin 11.00 g/dL (11.27-16.99); Mean Corpuscular HGB Conc 33.2 g/dL (30-55); Mean Corpuscular Hemoglobin 31.3 pg (27-33); Mean Corpuscular Volume 94.3 fl (85-98); Platelet Count 311 10^3/cmm (157-399); Red Blood Count 3.51 10^6/uL (3.85-5.65); White Blood Count 10.38 10^3/uL (3.29-11.43)
[2025-08-13 07:00] VITALS: BP 119/75; PULSE 66; TEMP 36.9
--- NOTE | 2025-08-13 08:10 | PM.OBGYDC ---
Discharge Providers OTR FLATBED DRIVER Date of Admission: 08/12/25 13:19 Date of Discharge: 08/13/25 Attending Provider at Admission: Kary Wang MD Attending Provider at Discharge: Kary Wang MD Diagnoses at Discharge Discharge Diagnosis 1. Ectopic without intrauterine : 2. Abdominal pain: Reason for Visit Reason for Visit: OB sent, possible ectopic ,bleeding,pain Hospital Course Hospital Course Patient arrived to ER from [facility] for possible ectopic. We did not have images from her outside records and so labs and US revealed hemoperitoneum and right large ectopic. She was taken to surgery and RSO performed based on surgical findings of adhesions and large ectopic. She progressed in diet ambulation and pain control. She was discharged to FU in 2 weeks. Physical Exam Narrative: Appearance: grossly normal Attitude: calm and engaged, appropriate eye contact Const: mild discomfort, oriented x3 cooperative Chest: Symmetrical chest wall rise Resp: normal respiratory effort, clear to auscultation bilaterally Cardio: regular rate and regular rhythm GI: Soft to palpation, + BS all quadrants, bruising at 3 sites that are clean intact Extremity: normal inspection, negative for no pedal edema Neuro: oriented x3 and moves all extremities, speech normal Urinary Catheter Management: Duff Latex: Cath Placed During This Visit: no Discharge Data Studies Completed and Pending Completed Studies During Hospitalization Category Date Time Status US OB transvaginal 70022 Stat Ultrasound 08/12/25 10:40 Completed Pending at discharge Category Date Time Status ES surgery / GI images Routine Exams 08/12/25 14:30 Ordered Urine Culture Stat Lab 08/12/25 11:40 Received Pathology: Surgical [PTH] Routine Pth 08/12/25 15:51 Ordered Radiology Impressions Transvaginal US 08/12/25 10:40 IMPRESSION: 1. No intrauterine gestation. 2. Hemoperitoneum, moderate t amount of complex fluid in the pelvis. 3. Heterogeneous mass in the RIGHT adnexa is lateral but inseparable from the uterus and anterior to the ovary. This mass measures 3.3 x 3.6 x 4.0 cm and is highly suspicious for an ectopic which may have ruptured and be hemorrhagic. Ectopic needs to be excluded. 4. RIGHT ovary is posterior to the RIGHT adnexal mass. Vascularity to the RIGHT ovary is not identified due to the deep position of the ovary. Notified Dr. Wang at 08/12/2025 1:41 PM. Laboratory Results WBC 10.38 10^3/uL (3.29-11.43) 08/13/25 04:56 RBC 3.51 10^6/uL (3.85-5.65) L 08/13/25 04:56 Hgb 11.00 g/dL (11.27-16.99) L 08/13/25 04:56 Hct 33.1 % (36-47) L 08/13/25 04:56 MCV 94.3 fl (85-98) 08/13/25 04:56 MCH 31.3 pg (27-33) 08/13/25 04:56 MCHC 33.2 g/dL (30-55) 08/13/25 04:56 RDW 12.9 % (12.1-15.1) 08/13/25 04:56 Plt Count 311 10^3/cmm (157-399) 08/13/25 04:56 MPV 10.5 fL (7.4-10.4) H 08/13/25 04:56 Neut % (Auto) 70.5 % 08/12/25 11:22 Lymph % (Auto) 24.0 % 08/12/25 11:22 [place] % (Auto) 4.4 % 08/12/25 11:22 Eos % (Auto) 0.4 % 08/12/25 11:22 Baso % (Auto) 0.3 % 08/12/25 11:22 Neut # (Auto) 7.42 10^3/uL (1.8-7.7) 08/12/25 11:22 Lymph # (Auto) 2.5 10^3/uL (0.8-4.8) 08/12/25 11:22 [place] # (Auto) 0.5 10^3/uL (0.2-0.9) 08/12/25 11:22 Eos # (Auto) 0.0 10^3/uL (0.0-0.8) 08/12/25 11:22 Baso # (Auto) 0.0 10^3/uL (0.0-0.1) 08/12/25 11:22 Nucleated RBC % (auto) 0 % 08/12/25 11:22 Nucleated RBCs # 0.0 /100WBC 08/12/25 11:22 PT 13.50 SECONDS (12.1-14.9) 08/12/25 11:22 INR 0.96 (0.8-1.2) 08/12/25 11:22 APTT 29.2 SECONDS (23.9-36.7) 08/12/25 11:22 Sodium 139 mmol/L (136-145) 08/12/25 11:22 Potassium 3.8 mmol/L (3.5-5.1) 08/12/25 11:22 Chloride 101 mmol/L (98-107) 08/12/25 11:22 Carbon Dioxide 23 mmol/L (22-29) 08/12/25 11:22 Anion Gap 18.8 (5-19) 08/12/25 11:22 BUN 5 mg/dL (6-20) L 08/12/25 11:22 Creatinine 0.5 mg/dL (0.5-0.9) 08/12/25 11:22 GFR Calculation 146.9 mL/min (90-130) H 08/12/25 11:22 Glucose 102 mg/dL (65-115) 08/12/25 11:22 Calculated Osmolality 285 mOsm/kg (285-295) 08/12/25 11:22 Calcium 9.3 mg/dL (8.5-10.5) 08/12/25 11:22 Total Bilirubin 0.6 mg/dL (0.15-1.2) 08/12/25 11:22 AST 15 U/L (0-32) 08/12/25 11:22 ALT 12 U/L (0-33) 08/12/25 11:22 Alkaline Phosphatase 93 U/L (35-105) 08/12/25 11:22 Total Protein 7.7 g/dL (6.6-8.7) 08/12/25 11:22 Albumin 4.6 g/dL (3.5-5.2) 08/12/25 11:22 Globulin 3.1 g/dL (1.3-4.6) 08/12/25 11:22 Ser , Semi-Qnt 3375.00 mIU/mL 08/12/25 11:22 Urine Color Dark yellow (Yellow) A 08/12/25 11:40 Urine Appearance Cloudy (CLEAR) A 08/12/25 11:40 Urine pH 6.5 (5-7) 08/12/25 11:40 Ur Specific [place] 1.017 (1.005-1.030) 08/12/25 11:40 Urine Protein 1+ (Negative) A 08/12/25 11:40 Urine Glucose (UA) Negative (Normal) 08/12/25 11:40 Urine Ketones Trace (Negative) 08/12/25 11:40 Urine Blood 3+ (Negative) A 08/12/25 11:40 Urine Nitrate Negative (Negative) 08/12/25 11:40 Urine Bilirubin 1+ (Negative) H 08/12/25 11:40 Urine Urobilinogen 1.0 mg/dL (Negative) 08/12/25 11:40 Ur Leukocyte Esterase 1+ (Negative) A 08/12/25 11:40 Urine RBC 6-10 /hpf (0-2) 08/12/25 11:40 Urine WBC 6-10 /hpf (0-5) 08/12/25 11:40 Ur Squamous Epith Cells 6-10 /hpf (0-5) 08/12/25 11:40 Amorphous Sediment Not Reportable 08/12/25 11:40 Urine Bacteria 1+ /hpf (NONE) H 08/12/25 11:40 Hyaline Casts 0-4 /lpf H 08/12/25 11:40 Blood Type A Positive 08/12/25 11:22 Rho(D) Type Rh positive 08/12/25 11:22 Antibody Screen Negative 08/12/25 11:22 Vitals Last Vital Signs Temp 98.5 F 08/13/25 07:00 Pulse 66 08/13/25 07:00 Resp 16 08/13/25 03:43 BP 119/75 08/13/25 07:00 Pulse Ox 100 08/13/25 03:43 O2 Del Method Room Air 08/13/25 03:43 Results Labs OB ([facility]): Obstetrics US 08/03/25 Blood Type A Positive 08/12/25 Antibody Screen Negative 08/12/25 Hct, (36-47) 33.1 % L Today Hgb, (11.27-16.99) 11.00 g/dL L Today Rho(D) Type Rh positive 08/12/25 Plt Count, (157-399) 311 10^3/cmm Today Ser , Semi-Qnt 3375.00 mIU/mL 08/12/25 HCG, Qual, (Negative) Negative 05/01/25 Urine Opiates Screen, (Negative) Negative ng/mL 05/01/25 Ur Barbiturates Screen, (Negative) Negative ng/mL 05/01/25 Ur Phencyclidine Scrn, (Negative) Negative ng/mL 05/01/25 Ur Amphetamines Screen, (Negative) Negative ng/mL 05/01/25 U Benzodiazepines Scrn, (Negative) Negative ng/mL 05/01/25 Urine Cocaine Screen, (Negative) Negative ng/mL 05/01/25 U Marijuana (THC) Screen, (Negative) Positive ng/mL H 05/01/25 Micro Urine Specimen 08/12/25 Discharge Plan Discharge Patient Disposition: Home Condition: Stable Prescriptions: New oxycodone-acetaminophen 5-325 mg Tablet 2 tab PO Q6H PRN (Reason: Moderate To Severe Pain) Qty: 30 0RF ibuprofen 800 mg Tablet 800 mg PO Q8H Qty: 0 0RF Discontinued acetaminophen [Tylenol] 325 mg Tablet 650 mg PO QID PRN (Reason: Fever Or Pain) 28-800 mg-mcg Tablet 1 tab PO DAILY Discharge Order = DC NOW: Discharge Order (Routine); Ordered 08/13/25 Ordered By: Kary Wang Discharge Diet: Regular Discharge Activity: Increase activity as tolerated Patient Instructions: Acute Wound Care (DC), Abdominal Pain (ED), Opioid Safety, Post Anesthesia Care, Patient Portal & Nito Instructions Activity Restrictions/Additional Instructions: Pelvic rest, expect light vaginal bleeding Discharge Attestations OTR FLATBED DRIVER Time Spent in Discharge Care*: less than 30 min Coding Level of Care Code Acute Code for Chg Fwd Diagnoses Ectopic without intrauterine O00.90 Abdominal pain R10.9
[2025-08-13] MEDS: ondansetron 2 mg/ML SDV 2 mL 4 MG IVP (08:46)
[2025-08-13 11:37] VITALS: BP 118/78; PULSE 68; RESP 16; TEMP 37; O2SAT 99
--- OUTSIDE RECORDS SUMMARY | 2025-08-14 04:21 | XMS_ITS | Encounter Summary ---
Author Organization [facility] Address [address] [place] [address] Care Team Providers Care Computer Technology Instructor Name Role Phone Unavailable Primary Care Provider Unavailabl e Reason for Visit * Reason Onset Date Comments pt is a ob and bleeding / new pt 08/08/2025 Encounter Details Date Type Department Care Team (Late st Contact Info) Description 08/08/[address] [facility] OBGYN-Benjamín Aaron [facility] [address] [place] [address] Gladys Salgado MD [address] [place] [address] pt is a ob and [...] CDT Legal Sex Female 6:27 AM SUPERVISOR ORCHARD Gender Identity Female 02/13/2025 11:41 AM CDT [...] bleeding precautions and provided number for AAC. RVISOR ORCHARD * Telephone Encounter - Keara oGnzalez - 08/08/2025 8:05 AM SUPERVISOR ORCHARD Ob pt went to ER on 08/03 in [place] and they said she had a hemorrhage and a vaginal US and couldn't see baby clearly. Actively bleeding again today. [phone] RVISOR ORCHARD documented in this encounter Plan of Treatment Upcoming Encounters Date Type Department Care Team (Latest Contact Info) Description 09/15/2025 9:00 AM SUPERVISOR ORCHARD Hospital Encounter [facility] Endoscopy [place] [address] [place] [address] Sunshine Gaines, DO [address] [facility] [address] [place] [address] 09/15/2025 9:00 AM SUPERVISOR ORCHARD - 09/15/2025 9:20 AM SUPERVISOR ORCHARD Surgery [facility] Endoscopy [place] [address] [place] [address] Sunshine Gaines, DO [address] [facility] [address] [place] [address] ESOPHAGOGASTRODUODENOSCOPY Scheduled Procedures Name Priority Associated Diagnoses Date/Ti me ESOPHAGOGASTRODUODENOSCOPY Melena Acute generalized abdominal pain Vomiting without nausea, unspecified vomiting type 09/15/2025 9:00 AM SUPERVISOR ORCHARD COLONOSCOPY Melena Acute generalized abdominal pain Vomiting without nausea, unspecified vomiting type 09/15/2025 9:00 AM SUPERVISOR ORCHARD documented as of this encounter Goals Goal Patient Goal Type Associated Problems Recent Progress Patient-Stated? Author Autogenerat ed Goal Care Plan Autogenerated Problem No KristiBea documented as of this encounter Visit Diagnoses Not on filedocumented in this encounter Additional Health Concerns Active Problems Noted Date Diagnosed Date Autogenerated Problem 07/11/2025 documented as of this encounter
--- OUTSIDE RECORDS SUMMARY | 2025-08-14 04:21 | XMS_ITS | Clinical Summary ---
Author Organization [facility] Address [address] [place] [address] Phone Care Team Providers Care Yarn Carrier Name Role Phone Unavailable Primary Care Provider [...] 08/08/2025 Telephone [facility] OBGYN-Benjamín Galen [facility] [address] [place] [address] Gladys Salgado MD pt is a ob and bleeding / new pt 07/11/2025 Orders Only [facility] Gastroenterology- [place] [address] [place] [phone] Marylin Gonzales, BOILER HOUSE INSPECTOR Vomiting without nausea, unspecified vomiting type (Primary [...] AM CDT Legal Sex Female 6:27 AM STAFF WEAPONS OFFICER Gender Identity Female 02/13/2025 11:41 AM [...] (Latest Contact Info) Description 09/15/2025 9:00 AM STAFF WEAPONS OFFICER Hospital Encounter [facility] Endoscopy [place] [address] [place] [address] Sunshine Gaines DO [address] [facility] [address] [place] [address] 09/15/2025 9:00 AM STAFF WEAPONS OFFICER - 09/15/2025 9:20 AM STAFF WEAPONS OFFICER Surgery [facility] Endoscopy [place] [address] [place] [address] Berrypito Govea, Sunshine, DO [address] [facility] [address] [place] [address] ESOPHAGOGASTRODUODENOSCOPY Scheduled Procedures Name Priority Associated Diagnoses Date/Ti me ESOPHAGOGASTRODUODENOSCOPY Melena Acute generalized abdominal pain Vomiting without nausea, unspecified vomiting type 09/15/2025 9:00 AM STAFF WEAPONS OFFICER COLONOSCOPY Melena Acute generalized abdominal pain Vomiting without nausea, unspecified vomiting type 09/15/2025 9:00 AM STAFF WEAPONS OFFICER Health Maintenance Due Date Last Done Comments [...] PAP RLFX HPV Routine 07/18/2018 2:59 PM STAFF WEAPONS OFFICER from Last 3 Months or Most Recently Relevant to Health Maintenance Results * (ABNORMAL) GC/CHLAMYDIA, URINE (04/30/2020 6:43 PM CDT) [facility] CHLAMYDIA DNA AMPLIFICATION DETECTED(A) Not Detected 04/30/2020 8:27 PM CDT [facility] GC DNA AMPLIFICATION NOT DETECTED Not Detected 04/30/2020 8:27 PM CDT [facility] Urine URINE SPECIMEN / Unknown Collection / Unknown 04/30/2020 6:43 PM CDT 04/30/2020 6:55 PM CDT Narrative [facility] - 04/30/2020 8:27 PM CDT Results should not be used for the evaluation of suspected sexual abuse or for other medico-legal indications. The only legally accepted results are from culture. Results cannot be used to assess therapeutic success or failure since nucleic acids may persist following antimicrobial therapy. Maurilio Rashid MD URINE ORDERABLES COM Final Result [facility] [address] [place] [address] [facility] CLIA# [id number] [address] [place] [address] * CERV/VAG CYTO SCREEN PAP RLFX HPV (07/18/2018 2:59 PM STAFF WEAPONS OFFICER) [facility] CLINICAL INFORMATION 07/25/2018 5:30 PM STAFF WEAPONS OFFICER [facility] LAST MENSTRUAL PERIOD UNKNOWN 07/25/2018 5:30 PM STAFF WEAPONS OFFICER [facility] PREV PAP: FIRST PAP 07/25/2018 5:30 PM STAFF WEAPONS OFFICER [facility] PREV BX: SEE COMMENT 07/25/2018 5:30 PM STAFF WEAPONS OFFICER [facility] Comment:INFORMATION NOT PROV IDED SOURCE Endocervix 07/25/2018 5:30 PM STAFF WEAPONS OFFICER [facility] ADEQUACY: SEE COMMENT 07/25/2018 5:30 PM STAFF WEAPONS OFFICER [facility] Comment: Satisfactory for evaluation. Endocervical/transformation zone component present. PAP INTERP SEE COMMENT 07/25/2018 5:30 PM STAFF WEAPONS OFFICER [facility] Comment:Negative for intraep ithelial lesion or malignancy. COMMENT SEE COMMENT 07/25/2018 5:30 PM STAFF WEAPONS OFFICER [facility] Comment: This Pap test has been evaluated with computer assisted technology. LICENSED FUNERAL DIRECTOR: SEE COMMENT 2017 5:30 PM STAFF WEAPONS OFFICER [facility] Comment: MEF, CT(ASCP) CT screening location: [place] [address] [address] [place] [address] REVIEW LICENSED FUNERAL DIRECTOR: SEE COMMENT 07/25/2018 5:30 PM STAFF WEAPONS OFFICER [facility] Comment: MVB, CT(ASCP) CT screening location: [place] [address] [address] [place] [address] EXPLANATORY NOTE SEE COMMENT 018 5:30 PM STAFF WEAPONS OFFICER [facility] Comment: EXPLANATORY NOTE: [...] Unknown Collection / Unknown 07/18/2018 2:59 PM STAFF WEAPONS OFFICER 07/20/2018 10:14 AM STAFF WEAPONS OFFICER Narrative [facility] - 07/25/2018 5:30 PM STAFF WEAPONS OFFICER Performing Organization Information: Site ID: SL Name: [facility] Address: [facility] [address] [place] [address] Director: Rosy Lauren Brie Miller NP PATHOLOGY/CYTOLOGY ORDERA BLES Final Result [facility] from Last 3 Months or Most Recently Relevant to Health Maintenance Additional Health Concerns Active Problems Noted Date Diagnosed Date Autogenerated Problem 07/11/2025 Insurance [facility] [employer] [id number] [employer] [facility] PL[facility] [id number] * Guarantor: ALESSANDRO MILIAN Account Type Relation to Patient Date of Phone Billing Address Personal/Family [address] [place] [address] [employer] Medicaid
--- OUTSIDE RECORDS SUMMARY | 2025-08-14 04:21 | XMS_ITS | Encounter Summary ---
Author Organization [facility] Address [address] [place] [address] Care Team Providers Care Independent Jeweler Name Role Phone Unavailable Primary Care Provider Unavailabl e Encounter Details Date Type Department Care Team (Latest Contact Info) Description 07/06/2005 Outpatient Historical [facility]- [address] [phone] Nate Bourne, DO NO ADDRESS ON FILE CELLULITIS OF BUTTOCK (Primary Dx) Social History Tobacco Use Types Packs/Day Years Used Date Smoking Tobacco: Never Assessed Comments Unknown Sex and Gender Information Value Date Recorded Sex Assigned at Not on file Legal Sex Female 3:56 AM CARBURETOR EXPERT Gender Identity Not on file Sexual Orientation Not on file documented as of this encounter Plan of Treatment Not on file documented as of this encounter Visit Diagnoses Diagnosis Cellulitis and abscess of buttock- Primary documented in this encounter
--- OUTSIDE RECORDS SUMMARY | 2025-08-14 04:21 | XMS_ITS | Encounter Summary ---
Author Organization [facility] Address [address] [place] [address] Care Team Providers Care Sampler Pickup Name Role Phone Unavailable Primary Care Provider Unavailabl e Encounter Details Date Type Department Care Team (Latest Contact Info) Description 08/31/2005 Outpatient Historical [facility] Medicine- [address] [phone] Nate Bourne DO NO ADDRESS ON FILE URIN TRACT INFECTION NOS (Primary Dx) Social History Tobacco Use Types Packs/Day Years Used Date Smoking Tobacco: Never Assessed Comments Unknown Sex and Gender Information Value Date Recorded Sex Assigned at Not on file Legal Sex Female 3:56 AM HYDRO TECHNICIAN Gender Identity Not on file Sexual Orientation Not on file documented as of this encounter Plan of Treatment Not on file documented as of this encounter Visit Diagnoses Diagnosis Urinary tract infection, site not specified- Primary documented in this encounter
--- OUTSIDE RECORDS SUMMARY | 2025-08-14 04:21 | XMS_ITS | Clinical Summary ---
Author Organization [facility] on Address [address] [place] [address] [place] [phone] Phone Care Team Providers Care Interactive Art Director Name Role Phone Unavailable Primary Care Provider [...] on file Legal Sex Female 3:56 AM SANDWICH PEDDLER Gender Identity Not on file Sexual Orientation [...] PAP RLFX HPV Routine 07/18/2018 2:59 PM SANDWICH PEDDLER Screening for malignant neoplasm of cervix from Last 3 Months or Most Recently Relevant to Health Maintenance Results * (ABNORMAL) GC/CHLAMYDIA, URINE (04/30/2020 6:43 PM CDT) CHLAMYDIA DNA AMPLIFICATION DETECTED(A) Not Detected 04/30/2020 8:27 PM CDT [facility] GC DNA AMPLIFICATION NOT DETECTED Not Detected 04/30/2020 8:27 PM CDT [facility] Urine URINE SPECIMEN / Unknown Collection / Unknown 04/30/2020 6:43 PM CDT 04/30/2020 6:55 PM CDT Narrative [facility] - 04/30/2020 8:27 PM CDT Results should not be used for the evaluation of suspected sexual abuse or for other medico-legal indications. The only legally accepted results are from culture. Results cannot be used to assess therapeutic success or failure since nucleic acids may persist following antimicrobial therapy. us Maurilio Rashid MD URINE ORDERABLES COM Final Result [facility] [address] [place] [address] * CERV/VAG CYTO SCREEN PAP RLFX HPV (07/18/2018 2:59 PM SANDWICH PEDDLER) CLINICAL INFORMATION 07/25/2018 5:30 PM SANDWICH PEDDLER [facility] LAST MENSTRUAL PERIOD UNKNOWN 07/25/2018 5:30 PM SANDWICH PEDDLER [facility] PREV PAP: FIRST PAP 07/25/2018 5:30 PM SANDWICH PEDDLER [facility] PREV BX: SEE COMMENT 07/25/2018 5:30 PM SANDWICH PEDDLER [facility] Comment:INFORMATION NOT PROV IDED SOURCE Endocervix 07/25/2018 5:30 PM SANDWICH PEDDLER [facility] ADEQUACY: SEE COMMENT 07/25/2018 5:30 PM SANDWICH PEDDLER [facility] Comment: Satisfactory for evaluation. Endocervical/transformation zone component present. PAP INTERP SEE COMMENT 07/25/2018 5:30 PM SANDWICH PEDDLER [facility] Comment:Negative for intraep ithelial lesion or malignancy. COMMENT SEE COMMENT 07/25/2018 5:30 PM SANDWICH PEDDLER [facility] Comment: This Pap test has been evaluated with computer assisted technology. PROPERTY MANAGEMENT SUPERVISOR: SEE COMMENT 2017 5:30 PM SANDWICH PEDDLER [facility] Comment: MEF, CT(ASCP) CT screening location: [place] [address] [place] [address] REVIEW PROPERTY MANAGEMENT SUPERVISOR: SEE COMMENT 07/25/2018 5:30 PM SANDWICH PEDDLER [facility] Comment: MVB, CT(ASCP) CT screening location: [place] [address] [address] [place] [facility] EXPLANATORY NOTE SEE COMMENT 018 5:30 PM SANDWICH PEDDLER [facility] Comment: EXPLANATORY NOTE: The [...] Unknown Collection / Unknown 07/18/2018 2:59 PM SANDWICH PEDDLER 07/19/2018 8:14 AM SANDWICH PEDDLER Narrative [facility] - 07/25/2018 5:30 PM SANDWICH PEDDLER Performing Organization Information: Site ID: Name: [facility] Address: [address] [place] [id number] Director: Rosy Lauren us Brie Miller NP PATHOLOGY/CYTOLOGY ORDERA BLES Final Result [facility] from Last 3 Months or Most Recently Relevant to Health Maintenance Insurance [facility] RX INFO[employer]OSS[employer] Medicaid [facility] Advance Directives For more information, please contact: [phone] * Full Code (Latest Code Status on [...]
--- OUTSIDE RECORDS SUMMARY | 2025-08-14 04:21 | XMS_ITS | Encounter Summary ---
Author Organization [facility] Address [address] [place] [address] Care Team Providers Care Plastic Block Boiler Reliner Name Role Phone Unavailable Primary Care Provider Unavailabl e Encounter Details Date Type Department Care Team (Latest Contact Info) Description 06/10/2005 Outpatient Historical [facility] Medicine- [address] [id number] Nate Bourne DO NO ADDRESS ON FILE INSECT BITE HIP/LEG-INFEC (Primary Dx) Social History Tobacco Use Types Packs/Day Years Used Date Smoking Tobacco: Never Assessed Comments Unknown Sex and Gender Information Value Date Recorded Sex Assigned at Not on file Legal Sex Female 3:56 AM FLAT SORTING MACHINE CLERK Gender Identity Not on file Sexual Orientation Not on file documented as of this encounter Plan of Treatment Not on file documented as of this encounter Visit Diagnoses Diagnosis Hip, thigh, leg, and ankle, insect bite, nonvenomous, infected(916.5)- Primary Hip, thigh, leg, and ankle, insect bite, nonvenomous, infected documented in this encounter
== END 2025-08-13 11:38 | disposition home or self-care (01) ==
LOC: ER 12:53 → OBGYN 14:01
PROVIDERS: Admitting Provider Obstetrics & Gynecology; Emergency Provider Emergency Medicine; Visit Provider Obstetrics & Gynecology
PROC: (CPT 59150; principal; 2025-08-12 13:30)
DX: O00.101 Right tubal pregnancy without intrauterine pregnancy (principal); N83.01 Follicular cyst of right ovary
CPT/HCPCS: 59151; 36415; 51702; 76817; 80053; 81001; 84702; 85025; 85027; 85610; 85730; 86850; 86900; 87086; 88305; 96361; 96374; 96375; 99285; G0378; J0330; J0690; J1100; J1171; J1885; J2250; J2405; J3010; J3490; J7030; J7121; J9999

== ENCOUNTER 2025-08-19 18:34 | Emergency (ER) | payer MEDICAID, SELFPAY ==
--- NOTE | 2025-08-19 18:35 | PC.NURSE ---
called for patient for triage and she is in the bathroom. triaged at 184 when patient was out of bathroom
[2025-08-19 18:42] VITALS: BP 137/75; PULSE 110; RESP 20; TEMP 37.5; O2SAT 100
--- NOTE | 2025-08-19 19:45 | W.ED.EAR ---
HPI - Ear Problem General: Chief complaint: Ear Stated complaint: left ear welling just stated antibiotics Time Seen by Provider: 08/19/25 19:05 Source: patient Mode of arrival: ambulatory Limitations: no limitations History of Present Illness: Patient is a 29-year-old female presents the emergency department with left ear pain and facial swelling for the past few days. Was diagnosed with left ear infection over the weekend at walk-in clinic, was prescribed ofloxacin, cefdinir, and Flonase but states that symptoms have progressively gotten worse. Does note that her face is also began to swell and she has severe pain behind her left ear over the mastoid. Endorsing fevers and nausea/vomiting. This patient recently had surgery due to ectopic at the beginning of the month, states that her ear has been bothering her overall since then. She is reporting 10/10 pain at this time, no respiratory distress. She is tachycardic and elevated temperature 99.5. She is also reporting drainage from the left ear. MD Complaint: ear pain Location: left ear Duration: constant Severity: severe Discharge from ear: yes - purulent Associated symptoms: Reports ear or mastoid pain and fever(s); Denies headache(s) or neck pain Treatment prior to arrival: other (abx, flonase) Related Data Previous Rx's ?Medication ?Instructions ?Recorded ibuprofen 800 mg tablet 800 mg PO Q8H #0 tabs 08/13/25 oxycodone-acetaminophen 5 mg-325 2 tab PO Q6H PRN Moderate To 08/13/25 mg tablet Severe Pain #30 tabs ciprofloxacin 0.3 %-dexamethasone 4 drp otic (ear) BID 7 days #7.5 mL 08/19/25 0.1 % ear drops,suspension ciprofloxacin HCl 500 mg tablet 500 mg PO BID 7 days #14 tabs 08/19/25 (Cipro) hydrocodone 5 mg-acetaminophen 325 1 tab PO Q8H PRN pain 5 days #15 08/19/25 mg tablet tabs prednisone 10 mg tablets in a dose 10 mg PO DIRECTED #21 ea 08/19/25 pack Allergies Allergy/AdvReac Type Severity Reaction Status Date / Time amoxicillin Allergy ALGY-Rash Verified 08/03/25 16:35 cefdinir Allergy ALGY-Swell Verified 08/19/25 18:47 Lip/Tongue/Throat Penicillins Allergy ALGY-Rash Verified 08/03/25 16:35 Review of Systems General: Reports: 10 or more systems reviewed and unremarkable except in HPI and below Const: Reports: fever(s); Denies: chills or fatigue Eyes: Denies: change in vision ENMT: Reports: ear or mastoid pain, ear discharge, sinus pain (w/ swelling) and other (mastoid bone) Card: Denies: chest pain, palpitations, swelling of feet/ankles or lightheadedness Resp: Denies: dyspnea, productive cough or wheezing GI: Reports: nausea and vomiting; Denies: abdominal pain, diarrhea or constipation : Denies: flank pain, difficulty voiding, dysuria or urinary frequency Musc: Denies: neck pain, back pain or joint pain Skin/Breast: Denies: rash Neuro: Denies: headache(s), numbness in extremities or weakness in extremities PFSH ED PFSH: Medical History Abdominal pain Ectopic without intrauterine Social History Smoking and tobacco/nicotine status: never used tobacco/nicotine Physical Exam Const: COMMON NORMALS: patient oriented x3 and no limitations GENERAL APPEARANCE: cooperative ORIENTATION/CONSCIOUSNESS: Yes awake, Yes oriented to person, Yes oriented to place and Yes oriented to time OTHER: uncomfortable HENMT: COMMON NORMALS: normocephalic, atraumatic and hearing grossly normal bilaterally HEAD & SCALP: normocephalic and atraumatic OTHER: Swelling of the left EAC with active purulent drainage. Tender to palpation to the left mastoid bone with mild erythema and edema. Swelling of the left face. Eye: COMMON NORMALS: Equal, round and reactive pupils present, EOMs intact bilaterally and conjunctivae normal CONJUNCTIVA: Yes conjunctivae normal PUPIL: Yes Equal, round and reactive pupils present Neck/C-Spine: COMMON NORMALS: full ROM, supple and no JVD Resp: COMMON NORMALS: normal respiratory effort, No retractions, No use of accessory muscles and clear to auscultation bilaterally AUSCULTATION: clear to auscultation bilaterally Cardio: COMMON NORMALS: no JVD, regular rate, regular rhythm, No clicks present (Cardio), No murmurs present (Cardio) and No rub (Cardio) RATE: regular rate RHYTHM: regular rhythm Extremity: COMMON NORMALS: normal to inspection, full ROM and capillary refill normal Neuro: COMMON NORMALS: patient oriented x3, moves all extremities, no focal motor deficits and no sensory deficits noted SENSORIUM/ORIENTATION: Yes oriented to person, Yes oriented to place and Yes oriented to time Skin: COMMON NORMALS: no rashes or lesions noted GENERAL SKIN EXAM: no rashes or lesions noted Course Vital Signs: Vital signs: Vital Signs Temperature 99.5 F 08/19/25 18:42 Pulse Rate 110 H 08/19/25 18:42 Respiratory Rate 20 H 08/19/25 18:42 Blood Pressure 137/75 08/19/25 18:42 Pulse Oximetry 100 08/19/25 18:42 Oxygen Delivery Me thod Room Air 08/19/25 18:42 MDM - Ear Medical Decision Making Patient presented for persistent left ear pain despite being on cefdinir ofloxacin and Flonase for otitis media and externa. Swelling to the EAC with purulent drainage at time of examination and tender to the left mastoid bone with redness and swelling here. Mild generalized facial swelling to the left side also noted. Fevers and nausea at home. There was concern for mastoiditis with CT temporal bone ordered but this ruled this out, did confirm the diffuse otitis externa present. Mild leukocytosis with her labs but overall unremarkable workup. Complaining of quite a bit of pain this was improved after morphine she was administered fluids as well. She will be referred to ENT for possible debridement and wick placement if she continues to have swelling, feel that inadequately the ofloxacin has been administered so she was educated on administering Ciprodex here of which she will be switched to as well as oral Cipro to cover for Pseudomonas. There is no mastoiditis, abscess, signs of malignant otitis externa, or any other emergent ENT findings so still stable for outpatient therapy but educated to return if condition still worsens despite appropriation of treatment. Patient agrees with this plan, stable for discharge. Lab Data 08/19/25 21:13 08/19/25 21:13 Radiology Impressions Temporal Bone CT 08/19/25 19:47 IMPRESSION: 1. Diffuse thickening of the left external auditory canal with mild periauricular fat stranding. Correlate clinically for acute otitis externa. No focal fluid collection or abscess. 2. Prominent left periparotid lymph nodes, likely reactive. 3. Small soft tissue/fluid in the left middle ear. Recommend direct visual inspection. Laboratory Results WBC 12.73 10^3/uL (3.29-11.43) H 08/19/25 21:13 RBC 3.53 10^6/uL (3.85-5.65) L 08/19/25 21:13 Hgb 11.10 g/dL (11.27-16.99) L 08/19/25 21:13 Hct 34.1 % (36-47) L 08/19/25 21:13 MCV 96.6 fl (85-98) 08/19/25 21:13 MCH 31.4 pg (27-33) 08/19/25 21:13 MCHC 32.6 g/dL (30-55) 08/19/25 21:13 RDW 13.3 % (12.1-15.1) 08/19/25 21:13 Plt Count 418 10^3/cmm (157-399) H 08/19/25 21:13 MPV 9.7 fL (7.4-10.4) 08/19/25 21:13 Neut % (Auto) 88.8 % 08/19/25 21:13 Lymph % (Auto) 6.5 % 08/19/25 21:13 [place] % (Auto) 3.9 % 08/19/25 21:13 Eos % (Auto) 0.2 % 08/19/25 21:13 Baso % (Auto) 0.2 % 08/19/25 21:13 Neut # (Auto) 11.30 10^3/uL (1.8-7.7) H 08/19/25 21:13 Lymph # (Auto) 0.8 10^3/uL (0.8-4.8) 08/19/25 21:13 [place] # (Auto) 0.5 10^3/uL (0.2-0.9) 08/19/25 21:13 Eos # (Auto) 0.0 10^3/uL (0.0-0.8) 08/19/25 21:13 Baso # (Auto) 0.0 10^3/uL (0.0-0.1) 08/19/25 21:13 Nucleated RBC % (auto) 0 % 08/19/25 21:13 Nucleated RBCs # 0.0 /100WBC 08/19/25 21:13 ESR 3 mm/hr (0-15) 08/19/25 21:13 Sodium 136 mmol/L (136-145) 08/19/25 21:13 Potassium 4.0 mmol/L (3.5-5.1) 08/19/25 21:13 Chloride 104 mmol/L (98-107) 08/19/25 21:13 Carbon Dioxide 22 mmol/L (22-29) 08/19/25 21:13 Anion Gap 14.0 (5-19) 08/19/25 21:13 BUN 3 mg/dL (6-20) L 08/19/25 21:13 Creatinine 0.5 mg/dL (0.5-0.9) 08/19/25 21:13 GFR Calculation 146.9 mL/min (90-130) H 08/19/25 21:13 Glucose 104 mg/dL (65-115) 08/19/25 21:13 Calculated Osmolality 279 mOsm/kg (285-295) L 08/19/25 21:13 Lactic Acid 1.9 mmol/L (0.5-2.2) 08/19/25 21:13 Calcium 8.2 mg/dL (8.5-10.5) L 08/19/25 21:13 Total Bilirubin 0.2 mg/dL (0.15-1.2) 08/19/25 21:13 AST 14 U/L (0-32) 08/19/25 21:13 ALT 13 U/L (0-33) 08/19/25 21:13 Alkaline Phosphatase 89 U/L (35-105) 08/19/25 21:13 C-Reactive Protein 7.3 mg/L (0.0-4.9) H 08/19/25 21:13 Total Protein 6.4 g/dL (6.6-8.7) L 08/19/25 21:13 Albumin 3.8 g/dL (3.5-5.2) 08/19/25 21:13 Globulin 2.6 g/dL (1.3-4.6) 08/19/25 21:13 All radiology interpretation(s) finalized by discharge Discharge Plan Discharge Patient Disposition: Home Clinical Impression: Otitis externa Condition: Stable Prescriptions: New ciprofloxacin HCl [Cipro] 500 mg tablet 500 mg PO BID 7 Days Qty: 14 0RF ciprofloxacin-dexamethasone 0.3-0.1 % drops,suspension 4 drp otic (ear) BID 7 Days Qty: 7.5 0RF hydrocodone-acetaminophen 5-325 mg tablet 1 tab PO Q8H PRN (Reason: pain) 5 Days Qty: 15 0RF prednisone 10 mg tablets,dose pack 10 mg PO DIRECTED Qty: 21 0RF Rx Instructions: see taper instructions 6 tablets on day 1, 5 tablets on day 2, 4 tablets on day 3, 3 tablets on day 4, 2 tablets on day 5, and 1 tablet a day 6. P.o. No Action ibuprofen 800 mg Tablet 800 mg PO Q8H Qty: 0 0RF oxycodone-acetaminophen 5-325 mg Tablet 2 tab PO Q6H PRN (Reason: Moderate To Severe Pain) Qty: 30 0RF Discharge Orders: Discharge ED (Routine); Ordered 08/19/25 Ordered By: Maurilio Dean Patient Instructions: Patient Portal & Nito Instructions Activity Restrictions/Additional Instructions: Discharge Instructions Your Diagnosis You have been diagnosed with left ear canal infection (otitis externa). A CT scan of your ear bone confirmed that the infection has not spread to the bone behind your ear (mastoiditis). Your Medications Please stop taking cefdinir and ofloxacin. Start these new medications: - Ciprofloxacin tablets (oral): Take as prescribed to treat the infection from the inside - Ciprodex ear drops: Use 4 drops in your left ear twice daily for 7 days - Warm the bottle in your hands before using - Lie down with your left ear facing up - After putting in the drops, stay in this position for 60 seconds to let the medicine work - Shake the bottle well before each use - [place] (hydrocodone 5 mg/acetaminophen 325 mg): Take as prescribed for pain relief - Prednisone taper: Take exactly as prescribed to reduce swelling and inflammation What to Expect Most patients improve within 24 to 72 hours of starting treatment. You should notice less pain and swelling during this time. Ear Care Instructions - Do not put cotton swabs, fingers, or other objects in your ear - Avoid getting water in your ear for 7 to 10 days - Use earplugs or cotton with petroleum jelly when showering - Avoid swimming and water sports during treatment - You may dry your ear canal with a dental chair assembler on the lowest heat setting after bathing - If you wear hearing aids or earphones, limit their use until pain and drainage have stopped When to Seek Medical Attention Contact your doctor or return to the emergency department if you experience: - Worsening pain, redness, or swelling around your ear - Fever - Spreading redness on your face or neck - No improvement after 2 to 3 days of treatment - New or worsening drainage from your ear Follow-Up Care - You should see improvement within 24 to 72 hours - If your symptoms do not improve or worsen, you will be referred to an ear, nose, and throat specialist (weld lay out worker) for possible cleaning of the ear canal and placement of a wick to help deliver medication - Follow up with your primary care doctor if symptoms have not completely resolved after 2 weeks of treatment Important Reminders - Complete the full course of all prescribed medications, even if you feel better - Do not share your medications with others - Discard any unused Ciprodex after completing your 7-day treatment course Print Language: Surinamese Coding Level of Care Code ED Public Relations Intern for Anurag Zimmer
--- NOTE | 2025-08-19 19:47 | CTR_ITS ---
PROCEDURE INFORMATION: Exam: CT Temporal Bones With Contrast. Exam date and time: 08/19/2025 8:16 PM Age: 29 years old Clinical indication: Jaw pain; Additional info: Left mastoid pain/redness, fever TECHNIQUE: Imaging protocol: Computed tomography of the temporal bones with contrast. Radiation optimization: All CT scans at this facility use at least one of these dose optimization techniques: automated exposure control; mA and/or kV adjustment per patient size (includes targeted exams where dose is matched to clinical indication); or iterative reconstruction. Contrast material: OMNI 350; Contrast volume: 100 ml; Contrast route: INTRAVENOUS (IV); COMPARISON: No relevant prior studies available. RADIATION DOSE METRICS: Total DLP (mGy-cm): 617.4 FINDINGS: Right inner ear: The cochlea and vestibule are unremarkable. No semicircular canal dehiscence. The vestibular aqueduct is normal in caliber. Right ossicles and middle ear: Clear. Normal ossicular chain morphology and alignment. The tympanic membrane is unremarkable. Right external auditory canal: Diffuse soft tissue thickening. Debris/cerumen in the medial canal. No osseous erosions. Right facial nerve canal: Unremarkable course. Right jugular foramen: No jugular dehiscence. Right carotid canal: No aberrant carotid canal. Right mastoid air cells: Underpneumatized. Trace fluid in the mastoid tip. Left inner ear: The cochlea and vestibule are unremarkable. No semicircular canal dehiscence. The vestibular aqueduct is normal in caliber. Left ossicles and middle ear: There is small soft tissue/fluid in the epitympanum. The scutum is not effaced. The tegmen tympani is intact. The middle ear ossicles are intact. Left external auditory canal: Diffuse soft tissue thickening. Debris/cerumen in the medial canal. No osseous erosions. Left facial nerve canal: Normal course. Left jugular foramen: No jugular dehiscence. Left carotid canal: No aberrant carotid canal. Left mastoid air cells: Clear. No mastoid effusions. Lymph nodes: Multiple prominent left periparotid/intraparotid lymph nodes Soft tissues: Mild left periauricular soft tissue fat stranding no focal fluid collection. CT/CT temporal bones w con [id number] IMPRESSION: 1. Diffuse thickening of the left external auditory canal with mild periauricular fat stranding. Correlate clinically for acute otitis externa. No focal fluid collection or abscess. 2. Prominent left periparotid lymph nodes, likely reactive. 3. Small soft tissue/fluid in the left middle ear. Recommend direct visual inspection.
[2025-08-19] MEDS: ondansetron 2 mg/ML SDV 2 mL 4 MG IVP (20:37)
[2025-08-19] MEDS: morphine 4 mg/mL SDV 1 mL IVP (20:37)
[2025-08-19 21:17] LABS: Hematocrit 34.1 % (36-47); Hemoglobin 11.10 g/dL (11.27-16.99); Mean Corpuscular HGB Conc 32.6 g/dL (30-55); Mean Corpuscular Hemoglobin 31.4 pg (27-33); Mean Corpuscular Volume 96.6 fl (85-98); Nucleated Red Blood Cells % 0 %; Platelet Count 418 10^3/cmm (157-399); Red Blood Count 3.53 10^6/uL (3.85-5.65); White Blood Count 12.73 10^3/uL (3.29-11.43)
[2025-08-19 21:34] LABS: Alanine Aminotransferase 13 U/L (0-33); Albumin Level 3.8 g/dL (3.5-5.2); Alkaline Phosphatase 89 U/L (35-105); Anion Gap 14.0 (5-19); Aspartate Amino Transferase 14 U/L (0-32); Blood Urea Nitrogen 3 mg/dL (6-20); Calcium 8.2 mg/dL (8.5-10.5); Carbon Dioxide 22 mmol/L (22-29); Chloride 104 mmol/L (98-107); Globulin 2.6 g/dL (1.3-4.6); Glucose 104 mg/dL (65-115); Lactic Sepsis W/Reflex 1.9 mmol/L (0.5-2.2); Osmolality Calculated 279 mOsm/kg (285-295); Potassium 4.0 mmol/L (3.5-5.1); Sodium 136 mmol/L (136-145); Total Protein 6.4 g/dL (6.6-8.7)
[2025-08-19] MEDS: ciprofloxacin-dexameth Otic Susp 7.5 mL Btl 4 DROP EAR-LEFT (21:58)
[2025-08-19] MEDS: morphine 4 mg/mL SDV 1 mL 2 MG IVP (21:58)
[2025-08-19 22:04] VITALS: PULSE 87; RESP 18; O2SAT 99
[2025-08-19 22:24] VITALS: BP 108/67; PULSE 90; RESP 16; O2SAT 97
--- NOTE | 2025-08-21 07:48 | DCPLANNER ---
faxed outpatient referral to dr. fournier - ENT
== END 2025-08-19 22:24 | disposition home or self-care (01) ==
PROVIDERS: Emergency Provider Physician Assistant
DX: H60.92 Unspecified otitis externa, left ear (principal)
CPT/HCPCS: 36415; 70481; 80053; 83605; 85025; 85651; 86140; 96361; 96374; 96375; 96376; 99285; J1100; J2270; J2405; J7030; J9999